=== PATIENT | female | born 1955 | race Caucasian/White ===

== ENCOUNTER 2016-05-16 11:57 | Emergency (ER) | payer MEDICARE ==
[2016-05-16 12:04] VITALS: BP 141/67; PULSE 78; RESP 20; TEMP 98.1
--- NOTE | 2016-05-16 13:20 | ED ---
Recheck HPI - General Chief Complaint: Recheck/Abnormal Lab/Rx Stated Complaint: med refill Time Seen by Provider: 05/16/16 12:58 Source: patient, RN notes reviewed Mode of arrival: ambulatory Limitations: no limitations - History of Present Illness Initial Comments: Patient is a 60-year-old female with chief complaint of needing a medication refill. Patient reports that she had a heart attack approximately one year ago. She is on multiple cardiac medications including Effient, metoprolol, atorvastatin, lisinopril, aspirin, amlodipine, hydrochlorothiazide comments. Lactone. Patient reports that she got in an argument with her primary care providers staff and does not want to see him anymore. Patient reports that she has 2 days of her medications left. She states that she has no specific plan having a new primary care provider. She denies any other associated symptoms including chest pain or shortness of breath or headaches or dizziness. She states that she has been maintained on these medications for approximately a year now. She states that she just needs a refill for the next few weeks until she is able to establish with a new primary care. - Related Data Home Medications Medication Instructions Recorded Confirmed HYDROcodone/APAP 10-325MG [[place] 1 tab PO BID PRN 10/16/15 10/16/15 10-325] Morphine Sulfate [Tomasa] 50 mg PO Q12H 10/16/15 10/16/15 PARoxetine [Paxil] 20 mg PO DAILY 10/16/15 10/16/15 Previous Rx's Medication Instructions Recorded Aspirin 325 mg PO DAILY #30 tab 10/20/15 Atorvastatin [Lipitor] 40 mg PO HS #30 tab 10/20/15 Hydrochlorothiazide 25 mg PO DAILY 90 Days 10/20/15 Lisinopril [Zestril] 20 mg PO BID #60 tab 10/20/15 Metoprolol Tartrate [Lopressor] 25 mg PO BID #60 tab 10/20/15 Nitroglycerin Sl Tabs [Nitrostat] 0.4 mg SUBLINGUAL Q5M PRN #25 tab 10/20/15 Prasugrel [Effient] 10 mg PO DAILY #30 tab 10/20/15 Spironolactone [Aldactone] 25 mg PO DAILY #30 tab 10/20/15 amLODIPine [Norvasc] 10 mg PO DAILY #30 tab 10/20/15 Aspirin 325 mg PO DAILY #30 tab 05/16/16 Atorvastatin [Lipitor] 40 mg PO HS #30 tablet 05/16/16 Hydrochlorothiazide 25 mg PO DAILY #30 tablet 05/16/16 Lisinopril [Zestril] 20 mg PO DAILY #60 tab 05/16/16 Metoprolol Tartrate [Lopressor] 25 mg PO BID #60 tablet 05/16/16 Prasugrel [Effient] 10 mg PO DAILY #30 tablet 05/16/16 Spironolactone [Aldactone] 25 mg PO DAILY #30 tablet 05/16/16 amLODIPine [Norvasc] 10 mg PO DAILY #30 tablet 05/16/16 Allergies Allergy/AdvReac Type Severity Reaction Status Date / Time erythromycin base Allergy Unknown Verified 05/16/16 12:04 NSAIDS (Non-Steroidal Allergy Unknown Verified 05/16/16 12:04 Anti-Inflamma Review of Systems ROS Statement: Those systems with pertinent positive or pertinent negative responses have been documented in the HPI. ROS Other: All systems not noted in ROS Statement are negative. Past Medical History Past Medical History: Hypertension, Myocardial Infarction (TX) Additional Past Medical History / Comment(s): TX with stent to RCA 10/16/15, cyst on spine, Last Myocardial Infarction Date:: 10/16/15 History of Any Multi-Drug Resistant Organisms: Unobtainable Past Surgical History: Heart Catheterization With Stent, Hysterectomy Additional Past Surgical History / Comment(s): Multiple D and C's. Past Anesthesia/Blood Transfusion Reactions: No Reported Reaction Date of Last Stent Placement:: 10/16/15 Past Psychological History: Unable to Obtain Smoking Status: Current every day smoker Past Alcohol Use History: Unable to Obtain Past Drug Use History: Unable to Obtain General Exam - General Exam Comments Initial Comments: Sukhjinder is a well-appearing well-nourished 6-year-old female. She is on appear to be in any acute distress. Limitations: no limitations General appearance: alert, in no apparent distress Head exam: Present: atraumatic, normocephalic, normal inspection Eye exam: Present: normal appearance, PERRL, EOMI. Absent: scleral icterus, conjunctival injection, periorbital swelling ENT exam: Present: normal exam, mucous membranes moist Neck exam: Present: normal inspection. Absent: tenderness, meningismus, lymphadenopathy Respiratory exam: Present: normal lung sounds bilaterally. Absent: respiratory distress, wheezes, rales, rhonchi, stridor Cardiovascular Exam: Present: regular rate, normal rhythm, normal heart sounds. Absent: systolic murmur, diastolic murmur, rubs, gallop, clicks GI/Abdominal exam: Present: soft, normal bowel sounds. Absent: distended, tenderness, guarding, rebound, rigid Extremities exam: Present: normal inspection, full ROM, normal capillary refill. Absent: tenderness, pedal edema, joint swelling, calf tenderness Back exam: Present: normal inspection Neurological exam: Present: alert, oriented X3, CN II-XII intact Psychiatric exam: Present: normal affect, normal mood Skin exam: Present: warm, dry, intact, normal color. Absent: rash Course Vital Signs 05/16/16 12:01 Temperature 98.1 F Pulse Rate 78 Respiratory 20 Rate Blood Pressure 141/67 O2 Sat by Pulse 98 Oximetry Medical Decision Making - Medical Decision Making Patient is a 60-year-old female with chief complaint of needing medication refill. Patient presented she had a heart attack approximately one year ago and since then has been placed on multiple cardiac medications. Patient has multiple medications for high blood pressure that need to be filled. She started currently has 2 days left of her medications. Patient will be given a one-month prescription of the following medication and advised to follow-up with a new primary care provider. Patient will be given a referral for a new primary care physician. Patient will be given a referral for Dr. Lawrence. Return parameters were discussed. I advised patient to follow-up as soon as possible with them to establish care. Disposition Clinical Impression: Encounter for medication refill Disposition: HOME SELF-CARE Condition: Good Instructions: Medicine Refill (ED) Additional Instructions: Patient advised to follow up with primary care provider as soon as possible. Patient would not be able to receive any further refills from the emergency department. Understand that you should Return to the [facility] if any alarming signs or symptoms to occur. Prescriptions: Aspirin 325 mg PO DAILY #30 tab Atorvastatin [Lipitor] 40 mg PO HS #30 tablet Hydrochlorothiazide 25 mg PO DAILY #30 tablet Lisinopril [Zestril] 20 mg PO DAILY #60 tab Metoprolol Tartrate [Lopressor] 25 mg PO BID #60 tablet Prasugrel [Effient] 10 mg PO DAILY #30 tablet Spironolactone [Aldactone] 25 mg PO DAILY #30 tablet amLODIPine [Norvasc] 10 mg PO DAILY #30 tablet Referrals: Kaitlin Lawrence MD [STAFF PHYSICIAN] - 1-2 days Time of Disposition: 13:21
== END 2016-05-16 13:27 | disposition home or self-care (01) ==
LOC: EC 11:57
DX: Z76.0 Encounter for issue of repeat prescription (principal); I10 Essential (primary) hypertension; I25.2 Old myocardial infarction; F17.200 Nicotine dependence, unspecified, uncomplicated; Z95.5 Presence of coronary angioplasty implant and graft; Z88.1 Allergy status to other antibiotic agents; Z88.6 Allergy status to analgesic agent; Z79.82 Long term (current) use of aspirin; Z79.02 Long term (current) use of antithrombotics/antiplatelets; Z79.899 Other long term (current) drug therapy; Z79.891 Long term (current) use of opiate analgesic
CPT/HCPCS: 99281

== ENCOUNTER → 2016-06-27 | Outpatient (CLI) | payer MEDICARE ==
[2016-06-27 08:57] LABS: ALT 26 U/L (9-52); AST 14 U/L (14-36); Alkaline Phosphatase 67 U/L (38-126); Anion Gap 9 mmol/L; Blood Urea Nitrogen 24 mg/dL (7-17); Calcium 8.5 mg/dL (8.4-10.2); Carbon Dioxide 27 mmol/L (22-30); Chloride 109 mmol/L (98-107); Cholesterol 114 mg/dL (<200); Glucose 105 mg/dL (74-99); HDL Cholesterol 33 mg/dL (40-60); Non-African American GFR(MDRD) >60 (>60 ml/min/1.73 sqM); Potassium 4.1 mmol/L (3.5-5.1); Sodium 145 mmol/L (137-145); Total Bilirubin 0.4 mg/dL (0.2-1.3); Total Protein 6.4 g/dL (6.3-8.2); Triglycerides 181 mg/dL (<150)
== END | disposition home or self-care (01) ==
LOC: LABWHC1 07:39
PROVIDERS: ATTEND Internal Medicine Interventional Cardiology
DX: E78.2 Mixed hyperlipidemia (principal)
CPT/HCPCS: 36415; 80053; 80061

== ENCOUNTER → 2016-07-09 | Outpatient (CLI) | payer MEDICARE ==
[2016-07-09 09:28] LABS: CH 29.9; CHCM 30.2; HCT 43.2 % (34.0-46.0); HGB 13.1 gm/dL (11.4-16.0); Hypochromasia Moderate; MCH 30.2 pg (25.0-35.0); MCHC 30.3 g/dL (31.0-37.0); MCV 99.6 fL (80.0-100.0); Macrocytosis Slight; Mean Platelet Volume 7.4; RBC 4.34 m/uL (3.80-5.40); RDW 13.9 % (11.5-15.5)
[2016-07-09 09:41] LABS: Anion Gap 10 mmol/L; Carbon Dioxide 25 mmol/L (22-30); Chloride 105 mmol/L (98-107); Non-African American GFR(MDRD) 59 (>60 ml/min/1.73 sqM); Sodium 140 mmol/L (137-145)
[2016-07-09 09:56] LABS: Potassium 5.2 mmol/L (3.5-5.1)
[2016-07-09 09:57] LABS: Blood Urea Nitrogen 39 mg/dL (7-17)
== END | disposition home or self-care (01) ==
LOC: LABPAT 08:53
PROVIDERS: ATTEND Internal Medicine Interventional Cardiology
DX: Z01.812 Encounter for preprocedural laboratory examination (principal); I73.9 Peripheral vascular disease, unspecified
CPT/HCPCS: 80051; 82565; 84520; 85027

== ENCOUNTER 2016-07-13 09:02 | Day surgery (SDC) | payer MEDICARE ==
[2016-07-12 08:58] VITALS: BMI 27.4
[~2016-07-13 09:02] MED LIST: ALPRAZolam 0.25 MG TAB PO PRN; ASPIRIN 325 MG TAB PO STA; SODIUM CHLORIDE 0.9% 1,000 ML in EMPTY BAG 1 BAG IV ONE
[2016-07-13 09:33] VITALS: TEMP 98.4
[2016-07-13] MEDS ORDERED: SODIUM CHLORIDE 0.9% 1,000 ML IV ONE (10:28)
[2016-07-13] MEDS ORDERED: MIDAZOLAM 2 MG/2 ML VIAL IV ONE (10:45)
[2016-07-13] MEDS ORDERED: LIDOCAINE 2% INJ 20 MG/ML SQ ONE (10:47)
[2016-07-13] MEDS: VERAPAMIL SYRINGE (5 MG/10 ML) INTRAARTER ONE ×2 (10:56→11:11)
[2016-07-13] MEDS ORDERED: HEPARIN SODIUM,PORCINE 100 UNIT/ML 5 ML VIAL IV ONE (10:58)
[2016-07-13] MEDS ORDERED: HEPARIN SODIUM 1,000 UNIT/ML VIAL IV ONE (10:58)
[2016-07-13] MEDS ORDERED: IODIXANOL 320 MG/ML 100 ML INTRAARTER ONE (11:11)
[2016-07-13] MEDS ORDERED: SODIUM CHLORIDE 0.9% 1,000 ML IV SCH (11:15)
--- NOTE | 2016-07-13 12:38 | PTCA ---
DATE OF SERVICE: 07/13/2016 PERFORMING PHYSICIAN: Alli Simeon MD, Director Of Sleep. PROCEDURE PERFORMED: 1. An abdominal aortogram. 2. Bilateral lower extremity runoff. INDICATION OF THE STUDY: This is a pleasant 60-year-old female patient who sees Dr. Sweet as an outpatient who was experiencing bilateral lower extremity discomfort consistent with claudication. She underwent a duplex study in the office and that showed bilateral SFA disease where she was brought today to undergo a peripheral angiogram. APPROACH: Right radial artery. COMPLICATIONS: None. LEVEL OF SEDATION: Moderate with a sedation length of 30 minutes. PROCEDURE DESCRIPTION: After obtaining informed consent, the patient was brought to the Cardiac Sleeve Tailor. Right radial artery was cannulated using micropuncture technique under ultrasound guidance. The micropuncture wire passed easily, then I placed a 5 Cymro sheath in the right radial artery. Subsequently, I gave the patient 2 mg of verapamil IA and 3000 units of heparin IV. Subsequently, I advance a 5 Cymro pigtail catheter over an 0.035 Glidewire to the descending thoracic aorta all the way to the abdomen aorta. After that, an abdominal aortogram and bilateral lower extremity runoff using 5 Cymro pigtail catheter which was initially placed at the level of the renal arteries, then it was advanced above the bifurcation of the aorta to right and left common iliac arteries. The procedure was completed without any complication. SELECTIVE PERIPHERAL ANGIOGRAM: 1. The abdominal aorta appeared to have mild disease only. It is calcified, though. 2. COMMON ILIAC ARTERIES: The right and left common iliac arteries appeared to have mild disease only. 3. INTERNAL ILIAC ARTERIES: The right and left internal iliac arteries appeared to have mild disease only. 4. EXTERNAL ILIAC ARTERIES: The right and left external iliac arteries appeared to have mild disease only. 5. COMMON FEMORAL ARTERIES: The right and left common femoral arteries appeared to have mild disease only. 6. PROFUNDA: The right and left profunda are patent. 7. SFA: The right SFA appeared to be occluded with the occlusion extending from the ostium and reconstitute down by the mid SFA. The left SFA has short area of occlusion in the midportion. 8. POPLITEAL: The right and left popliteals appear to be angiographically normal.
--- NOTE | 2016-07-13 12:43 | PTCA ---
DATE OF SERVICE: 07/13/2016 PROCEDURE PERFORMED: 1. An abdominal aortogram. 2. Bilateral lower extremity runoff. PERFORMING PHYSICIAN: Alli Simeon MD, Relations Mgr. INDICATION: This is a pleasant 60-year-old female patient who sees Dr. Sweet in the office as an outpatient, who was experiencing bilateral lower extremity discomfort consistent with intermittent claudication. She did undergo duplex study in the office which showed severe bilateral SFA disease. She was brought today to undergo a peripheral angiogram. APPROACH: Right radial artery. COMPLICATIONS: None. LEVEL OF SEDATION: Moderate with a sedation length of 1/2 hour. PROCEDURE DESCRIPTION: After obtaining an informed consent, the patient was brought to the Cardiac Primary Care Provider. The right radial artery was cannulated using micropuncture technique. The micropuncture wire passed easily. Then I placed a 5 Austrian sheath in the right radial artery. Subsequently, I gave the patient 2 mg of verapamil IA and 3000 units of heparin IV. I did after that an abdominal aortogram and bilateral lower extremity runoff using 5 Austrian pigtail catheter which was initially placed at the level of the renal arteries, then it was advanced into above the bifurcation of the aorta to right and left common iliac arteries. The procedure was completed without any complication. SELECTIVE PERIPHERAL ANGIOGRAM: 1. Aorta appeared to be calcified with mild disease only. 2. COMMON ILIAC ARTERIES: The right and left common iliac arteries as well as right and left external iliac arteries and right and left internal iliac arteries appeared to be angiographically normal. 3. FEMORAL ARTERY: The right and left femoral arteries appeared to be angiographically normal. 4. PROFUNDA: The right and left profunda are patent. 5. THE SFA: The right and left SFA are occluded. The right SFA is occluded on a long segment and the left SFA is occluded on a short segment. 6. POPLITEAL: The right and left popliteal appear to be angiographically normal. 7. BELOW THE KNEE: There are 3-vessel runoff below the knee bilaterally. 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 POSTPROCEDURE MANAGEMENT: The patient will be scheduled to undergo a PHYSICAL THERAPY INSTRUCTOR of the right and left SFA.
--- NOTE | 2016-07-13 13:01 | LTR ---
July 13, 2016 RE: TezRachelmeron Lu Sebastian Dear Dr. Lawrence; Ms. Lu Bah underwent a peripheral angiogram and that showed occluded bilateral femoral arteries. The patient will be scheduled to undergo a MOLD BUILDER of the right and left SFA on 2 separate sessions. I want to thank you for allowing me to participate in her care and please do not hesitate to call if you have any questions or concerns. Sincerely, CARLOS DUFFY MD
--- NOTE | 2016-07-13 15:53 | IR ---
Fluoroscopy HISTORY: Pain 2.7 minutes fluoroscopy time supplied to the referring clinician. 132 intraoperative C-arm images do cument the procedure. See dictated report from cardiology.
[2016-07-13 16:07] VITALS: RESP 16
[2016-07-13 17:43] VITALS: BP 104/62; PULSE 63
--- NOTE | 2016-07-24 07:22 | CDI ---
According to the Official Guidelines for Coding and Reporting, in the outpatient setting diagnosis documented as "consistent with" fits the definition of a probable or suspected condition. Further clarification is required when a suspected condition is reported. Per the H&P, the patient is complaining of bilateral lower extremities discomfort consistent with intermittent claudication. The patient has known PAD. Please clarify for proper reporting purposes. PAD with intermittent claudication PAD without intermittent claudication unknown Other (please specify) Please document your findings in an addendum to the procedure note. If you have any questions about this query, you may contact [employer] Operator, Kaila Encinas at between 8am and 6pm Saturday-Saturday. Thank you for your time. BRAYAN Hong PAD with intermittent claudication SILVANA
== END 2016-07-13 17:43 | disposition home or self-care (01) ==
LOC: CATHCVL 09:02
PROVIDERS: ATTEND Internal Medicine Interventional Cardiology
DX: I70.213 Atherosclerosis of native arteries of extremities with intermittent claudication, bilateral legs (principal); I70.0 Atherosclerosis of aorta; E78.2 Mixed hyperlipidemia; I25.5 Ischemic cardiomyopathy; E78.00 Pure hypercholesterolemia, unspecified; M19.90 Unspecified osteoarthritis, unspecified site; I25.10 Atherosclerotic heart disease of native coronary artery without angina pectoris; I10 Essential (primary) hypertension; F17.211 Nicotine dependence, cigarettes, in remission; Z88.1 Allergy status to other antibiotic agents; Z79.899 Other long term (current) drug therapy; Z79.82 Long term (current) use of aspirin; Z88.8 Allergy status to other drugs, medicaments and biological substances; Z95.5 Presence of coronary angioplasty implant and graft
CPT/HCPCS: 99152; 99153; 36200; 75625; 75716; C1769; C1894; J2001; J2250; Q9967; J1644

== ENCOUNTER 2016-07-25 11:28 | Day surgery (SDC) | payer MEDICARE ==
[2016-07-24 10:01] VITALS: BMI 25.0
[2016-07-25] MEDS ORDERED: SODIUM CHLORIDE 0.9% 1,000 ML IV ONE (11:50)
[2016-07-25 12:05] LABS: CH 30.4; CHCM 32.1; HCT 42.4 % (34.0-46.0); HGB 13.9 gm/dL (11.4-16.0); MCH 31.2 pg (25.0-35.0); MCHC 32.8 g/dL (31.0-37.0); MCV 95.2 fL (80.0-100.0); Mean Platelet Volume 7.1; RBC 4.45 m/uL (3.80-5.40); RDW 13.8 % (11.5-15.5); WBC 10.9 k/uL (3.8-10.6)
[2016-07-25 12:13] LABS: ALT 25 U/L (9-52); AST 18 U/L (14-36); Alkaline Phosphatase 64 U/L (38-126); Anion Gap 10 mmol/L; Blood Urea Nitrogen 30 mg/dL (7-17); Calcium 9.4 mg/dL (8.4-10.2); Carbon Dioxide 25 mmol/L (22-30); Chloride 106 mmol/L (98-107); Glucose 86 mg/dL (74-99); Non-African American GFR(MDRD) >60 (>60 ml/min/1.73 sqM); Potassium 4.4 mmol/L (3.5-5.1); Sodium 141 mmol/L (137-145); Total Bilirubin 0.8 mg/dL (0.2-1.3); Total Protein 7.5 g/dL (6.3-8.2)
[2016-07-25] MEDS ORDERED: MIDAZOLAM 2 MG/2 ML VIAL IVP ONE (15:03)
[2016-07-25] MEDS ORDERED: LIDOCAINE 2% INJ 20 MG/ML SQ ONE (15:07)
[2016-07-25] MEDS ORDERED: HEPARIN SODIUM 1,000 UNIT/ML VIAL IV ONE (15:09)
[2016-07-25] MEDS: NITROGLYCERIN 1000MCG/10ML SYRINGE INTRAARTER ONE ×2 (15:46→16:08)
[2016-07-25] MEDS: niCARdipine Syringe (1,000 mcg/10 mL) INTRACORON ONE ×2 (15:46→16:08)
[2016-07-25] MEDS ORDERED: HYDROmorphone 2 MG/ML 1 ML SYRINGE IVP ONE (16:06)
[2016-07-25] MEDS ORDERED: IODIXANOL 320 MG/ML 100 ML INTRAARTER ONE (16:18)
[2016-07-25] MEDS ORDERED: HYDROcodone/APAP 10-325MG 1 EACH TAB PO PRN (16:26)
[2016-07-25] MEDS ORDERED: NITROGLYCERIN SL TABS 0.4 MG TAB SUBLINGUAL PRN (16:26)
[2016-07-25] MEDS ORDERED: SODIUM CHLORIDE 0.9% 1,000 ML IV SCH (16:30)
[2016-07-25] MEDS: MORPHINE SULFATE ER 15 MG TABLET PO SCH (17:32)
[2016-07-25 19:56] VITALS: RESP 18
--- NOTE | 2016-07-25 20:37 | PCN ---
DATE OF PROCEDURE: 07/25/2016 PERFORMING PHYSICIAN: Alli Simeon M.D., plastering supervisor. PROCEDURES PERFORMED: 1. Selective left [id number] angiogram. 2. Selective left superficial femoral artery angiogram. 3. Successful recanalization of totally occluded left SFA. 4. Atherectomy of the left SFA using the TurboHawk device. 5. Successful balloon angioplasty of the distal left SFA using 5.0 x 80 In.Pact drug-coated balloon, with good angiographic results. 6. Successful stenting of the mid left SFA using a 6.0 x 60 mm self-expandable stent, with good angiographic results. 7. Selective right common femoral artery angiogram. INDICATION: This is a pleasant 60-year-old female patient who sees Dr. Sweet and Dr. Huang as an outpatient. She was experiencing bilateral lower extremity discomfort consistent with intermittent claudication. Initially she underwent an arterial duplex study which came in to be abnormal. Subsequently she underwent a peripheral angiogram which showed occluded bilateral SFA. She was admitted today to undergo a FABRICATION DEPARTMENT SUPERVISOR of the left SFA. APPROACH: Right common femoral artery. COMPLICATIONS: None. SEDATION: Conscious sedation was performed with a sedation length of about 2 hours. PROCEDURE DESCRIPTION: After obtaining informed consent, the patient was brought to the cardiac senior cytogenetics laboratory director. The right groin was prepped and draped in the usual sterile fashion. Local analgesia was achieved by injecting 2% Xylocaine subcutaneously into the right groin. The right common femoral artery was cannulated using micropuncture technique. The micropuncture wire passed easily. Then I placed a 6 Montserratian sheath in the right common femoral artery. At that point anticoagulation was initiated using heparin. Subsequently I did select the left SFA using an 0.035 Advantage wire with a 5 Montserratian RIM catheter. After that I exchanged my 11 cm 6 Montserratian sheath for a 55 cm 6 Montserratian sheath over the Advantage wire, and the tip of the sheath was positioned in the left common femoral artery. Subsequently I crossed the chronic total occlusion of the left SFA using an 0.014 Astato wire with the back-up support of an 0.014 QuickCross catheter. I proved that I was in the true lumen by injecting through the QuickCross. Subsequently I exchanged my 0.014 Astato wire for an 0.014 Ironman, preparing for directional atherectomy using the TurboHawk device. I performed multiple runs of directional atherectomy and I was able to extract a significant amount of plaque from the left superficial femoral artery. Subsequently I did balloon angioplasty initially using a 4.0 balloon which was inflated under its nominal pressure. After that I advanced a 5.0 x 80 mm In.Pact drug-coated balloon to the distal left SFA, where the balloon was inflated under its nominal pressure for 3 minutes. The following angiogram showed good angiographic results in the ballooned area, but proximal to that area there was what seemed to be dissection that was concerning. At that point I decided to cover that with a stent. So I deployed a 6.0 x 60 mm self-expandable stent, which was EverFlex, where the stent was positioned under fluoroscopy guidance. Then it was deployed. After that I did post-dilatation using a 5 mm balloon. The following angiogram showed good angiographic results without perforation and without dissection, with good flow. After that I did selective left [id number] angiogram. After that I exchanged my 55 cm sheath for an 11 cm sheath using the Advantage wire. Then I did selective right common femoral artery angiogram. The procedure was completed without any complication. POST-PROCEDURE MANAGEMENT: 1. Dual antiplatelet therapy. 2. Risk factor modification. 3. FABRICATION DEPARTMENT SUPERVISOR of the right SFA down the line.
[2016-07-25] MEDS ORDERED: ATORVASTATIN 40 MG TAB PO SCH (21:00)
[2016-07-25] MEDS ORDERED: PARoxetine 20 MG TAB PO SCH (21:00)
[2016-07-25] MEDS: VARENICLINE 1 MG TAB PO SCH (22:20)
[2016-07-25] MEDS: METOPROLOL TARTRATE 25 MG TAB PO SCH (22:20)
--- NOTE | 2016-07-25 23:13 | LTR ---
July 25, 2016 RE: TezRachelmeron Lu Sebastian Dear Tyler Ms. Lu Bah underwent successful angioplasty of the left superficial femoral artery with good angiographic results and without any complication. Thank you for allowing me to participate in her care. Sincerely, CARLOS DUFFY MD
[2016-07-26 06:40] LABS: Anion Gap 10 mmol/L; Blood Urea Nitrogen 19 mg/dL (7-17); Carbon Dioxide 24 mmol/L (22-30); Chloride 107 mmol/L (98-107); Glucose 96 mg/dL (74-99); Non-African American GFR(MDRD) >60 (>60 ml/min/1.73 sqM); Potassium 4.6 mmol/L (3.5-5.1); Sodium 141 mmol/L (137-145)
[2016-07-26 06:50] LABS: Aty Lym Flag Marked; Basophils % (A) 0 %; CH 30.2; CHCM 31.3; Eosinophils # (A) 0.2 k/uL (0-0.7); Eosinophils % (A) 2 %; HCT 41.7 % (34.0-46.0); HDW 2.15; HGB 13.2 gm/dL (11.4-16.0); Luc # (Auto) 1.24; Luc % (Auto) 11; Lymphocytes # (A) 2.3 k/uL (1.0-4.8); Lymphocytes % (A) 19 %; MCH 30.7 pg (25.0-35.0); MCHC 31.7 g/dL (31.0-37.0); Mean Platelet Volume 7.2; Monocytes # (A) 0.8 k/uL (0-1.0); Monocytes % (A) 7 %; Neutrophils # (A) 7.1 k/uL (1.3-7.7); Neutrophils % (A) 61 %; RDW 13.7 % (11.5-15.5); WBC 11.7 k/uL (3.8-10.6); WBC (Perox) 12.53
[2016-07-26] MEDS: MORPHINE SULFATE ER 15 MG TABLET PO SCH (08:24)
[2016-07-26] MEDS: VARENICLINE 1 MG TAB PO SCH (08:24)
[2016-07-26] MEDS: METOPROLOL TARTRATE 25 MG TAB PO SCH (08:25)
[2016-07-26 08:36] VITALS: BP 124/59; PULSE 65; TEMP 98.1
[2016-07-26] MEDS ORDERED: LISINOPRIL 20 MG TAB PO SCH (09:00)
[2016-07-26] MEDS ORDERED: ASPIRIN 325 MG TAB PO SCH (09:00)
[2016-07-26] MEDS ORDERED: PRASUGREL 10 MG TAB PO SCH (09:00)
[2016-07-26] MEDS ORDERED: amLODIPine 10 MG TAB PO SCH (09:00)
[2016-07-26] MEDS ORDERED: HYDROCHLOROTHIAZIDE 25 MG TAB PO SCH (09:00)
--- NOTE | 2016-07-26 10:17 | IR ---
EXAMINATION TYPE: IR stent intravas non coronary DATE OF EXAM: 07/25/2016 4:47 PM COMPARISON: NONE HISTORY: Peripheral vascular occlusive disease. Fluoroscopy was provided to the referring clinician. See dictated report from cardiology.
[2016-07-26 11:35] LABS: RBC Morphology Normal
--- NOTE | 2016-07-28 08:48 | DS ---
DATE OF ADMISSION: 07/25/2016 DATE OF DISCHARGE: 07/26/2016 BRIEF HISTORY: This is a pleasant 60-year-old female patient who sees Dr. Sweet as an outpatient, who was experiencing bilateral lower extremity discomfort and she underwent a peripheral angiogram which showed occluded bilateral SFA. She was admitted to the hospital yesterday and underwent successful crossing chronic total occlusion of the left SFA with a good angiographic result and without any complication. The procedure was performed from the right groin, which is soft and nontender and without any bruises. The patient is going to be discharged home and I will follow up with the patient next week in the office.
--- NOTE | 2016-08-02 06:08 | CDI ---
Dear Dr. Simeon, According to the Official Guidelines for Coding and Reporting, in the Outpatient setting diagnoses documented as "Consistent with" fit in with the definition of a "probable or suspected" condition. Further clarification is required when a suspected condition is reported. The H&P states that the patient is complaining of bilateral lower extremity discomford consistent with intermittent claudicaiton. The patient has known PAD. For proper report purposes, please clarify PAD With intermittent claudication PAD without intermittent claudication Unknown Other Please document this clarification as an addendum do the procedure note. If you have any questions regarding this query, you may condact Rimma Encinas , Correctional Supply Supervisor at Saturday thru Saturday from 8:00 am to 6:00 pm. Thank you for your time Dalila Graves, [facility] Outpatient Salon Professional Haseeb [email or web address] PAD with intermittent claudication MTDD
== END 2016-07-26 09:50 | disposition home or self-care (01) ==
LOC: CATHCVL 11:28 → 6SEL 16:17 → CATHCVL 07-26 09:50
PROVIDERS: ATTEND Internal Medicine Interventional Cardiology
DX: I70.203 Unspecified atherosclerosis of native arteries of extremities, bilateral legs (principal); Z87.891 Personal history of nicotine dependence; Z95.5 Presence of coronary angioplasty implant and graft; I10 Essential (primary) hypertension; E78.5 Hyperlipidemia, unspecified; Z79.82 Long term (current) use of aspirin; Z79.891 Long term (current) use of opiate analgesic; Z79.899 Other long term (current) drug therapy; Z88.1 Allergy status to other antibiotic agents; Z88.8 Allergy status to other drugs, medicaments and biological substances
CPT/HCPCS: 99152; 99153 ×4; 37227; 80053; 80048; 85025; 85027; C1769 ×5; C1894 ×2; C1725 ×3; C1887; C1876; C1714; C2623; C1760; J2001; J2250; J1170; Q9967; J1644

== ENCOUNTER → 2016-09-06 | Outpatient (CLI) | payer MEDICARE ==
[2016-09-06 10:50] LABS: CH 29.8; HCT 38.1 % (34.0-46.0); HDW 2.24; Hypochromasia Slight; MCH 30.3 pg (25.0-35.0); MCHC 31.4 g/dL (31.0-37.0); MCV 96.6 fL (80.0-100.0); Mean Platelet Volume 7.2; RBC 3.95 m/uL (3.80-5.40); RDW 13.9 % (11.5-15.5); WBC 11.9 k/uL (3.8-10.6)
[2016-09-06 10:58] LABS: Anion Gap 13 mmol/L; Blood Urea Nitrogen 32 mg/dL (7-17); Carbon Dioxide 23 mmol/L (22-30); Chloride 106 mmol/L (98-107); Non-African American GFR(MDRD) 51 (>60 ml/min/1.73 sqM); Potassium 4.2 mmol/L (3.5-5.1); Sodium 142 mmol/L (137-145)
== END | disposition home or self-care (01) ==
LOC: LABPAT 09:59
PROVIDERS: ATTEND Internal Medicine Interventional Cardiology
DX: Z01.812 Encounter for preprocedural laboratory examination (principal); I73.9 Peripheral vascular disease, unspecified
CPT/HCPCS: 36415; 80051; 82565; 84520; 85027

== ENCOUNTER 2016-10-03 10:07 | Day surgery (SDC) | payer MEDICARE ==
[2016-09-14 11:48] VITALS: BMI 25.4
[~2016-10-03 10:07] MED LIST changes: -ALPRAZolam 0.25 MG TAB PO PRN; -ASPIRIN 325 MG TAB PO STA
[2016-10-03 10:32] LABS: Aty Lym Flag Marked; CHCM 32.2; HCT 35.8 % (34.0-46.0); HDW 2.28; HGB 12.2 gm/dL (11.4-16.0); MCH 31.9 pg (25.0-35.0); MCHC 34.1 g/dL (31.0-37.0); MCV 93.5 fL (80.0-100.0); Mean Platelet Volume 7.5; RBC 3.83 m/uL (3.80-5.40); RDW 13.8 % (11.5-15.5); WBC 11.7 k/uL (3.8-10.6); WBC (Perox) 10.92
[2016-10-03 10:58] LABS: Anion Gap 12 mmol/L; Blood Urea Nitrogen 34 mg/dL (7-17); Calcium 9.1 mg/dL (8.4-10.2); Carbon Dioxide 25 mmol/L (22-30); Chloride 106 mmol/L (98-107); Glucose 114 mg/dL (74-99); Non-African American GFR(MDRD) 59 (>60 ml/min/1.73 sqM); Potassium 4.3 mmol/L (3.5-5.1); Sodium 143 mmol/L (137-145)
[2016-10-03] MEDS ORDERED: MIDAZOLAM 2 MG/2 ML VIAL IV ONE (11:10)
[2016-10-03 11:13] LABS: Add Differential Manual Differential
[2016-10-03 11:14] LABS: Nucleated Red Blood Cells 0 /100 WBC (0-0)
[2016-10-03 11:16] LABS: Manual Review Performed; Myelocytes % 0.5 %; Total Cells Counted 200
[2016-10-03] MEDS ORDERED: LIDOCAINE 2% INJ 20 MG/ML SQ ONE (11:17)
[2016-10-03] MEDS: HEPARIN SODIUM 1,000 UNIT/ML VIAL IV ONE ×2 (11:22→12:09)
[2016-10-03] MEDS ORDERED: SODIUM CHLORIDE 0.9% 1,000 ML IV ONE (11:22)
[2016-10-03] MEDS ORDERED: HYDROmorphone 2 MG/ML 1 ML SYRINGE IVP ONE (12:17)
[2016-10-03] MEDS: NITROGLYCERIN 1000MCG/10ML SYRINGE INTRAARTER ONE ×2 (12:29→12:46)
[2016-10-03] MEDS ORDERED: niCARdipine Syringe (1,000 mcg/10 mL) INTRAARTER ONE (12:46)
[2016-10-03] MEDS ORDERED: NITROGLYCERIN SL TABS 0.4 MG TAB SUBLINGUAL PRN (13:04)
[2016-10-03] MEDS ORDERED: VARENICLINE 1 MG TAB PO PRN (13:04)
[2016-10-03] MEDS ORDERED: HYDROcodone/APAP 10-325MG 1 EACH TAB PO PRN (13:04)
[2016-10-03] MEDS ORDERED: SODIUM CHLORIDE 0.9% 1,000 ML IV SCH (13:15)
[2016-10-03] MEDS ORDERED: IODIXANOL 320 MG/ML 100 ML INTRAARTER ONE (13:16)
--- NOTE | 2016-10-03 13:18 | P.PCN ---
Date of Procedure: 10/03/16 Preoperative Diagnosis: Postoperative Diagnosis: Procedure(s) Performed: Implants: Indications for Procedure: Operative Findings: PERCUTANEOUS PERIPHERAL INTERVENTION Performing physician: Alli Simeon M.D., breakfast supervisor Procedure performed: - Selective right below the knee angiogram - Selective right SFA angiogram - Successful crossing CLIENT EXPERIENCE CONSULTANT of the right SFA - An atherectomy of the right SFA using the CSI orbital atherectomy - Successful balloon angioplasty of the mid right SFA - Successful stenting of the proximal and distal right SFA using the Silver PTX drug-coated stent - Selective left common femoral artery angiogram Indication: This is a pleasant 61-year-old female patient who sees Dr. Sweet as an outpatient with a known history of severe PAD and known occluded bilateral SFA. She was quite symptomatic in terms of claudication. She underwent few weeks ago successful balloon angioplasty of the left SFA and she was brought today to undergo a ORACLE HYPERION CONSULTANT of the right SFA. Approach: Left common femoral artery Complication: None Level of sedation: Moderate sedation length of 99 minutes Procedure description: After obtaining an informed consent the patient was brought to the cardiac home performance laborer. The left common femoral artery was cannulated using micropuncture technique under ultrasound guidance, the micropuncture wire passed easily then I placed an 11 cm 6-Monegasque sheath in the left common femoral artery. At that point anticoagulation was initiated and the patient was given a total of 8000 use of heparin at the beginning of the procedure and subsequently 3000 use of heparin during the procedure with an ACT monitoring during the procedure. Subsequently I did selective the right profunda using a 5-Monegasque rim catheter with 035 advantage wire. After that I did exchange my 11 cm 6-Monegasque sheath into 70 cm 6-Monegasque sheath using the advantage wire. The tip of the long sheath was positioned in the right common femoral artery. I was able to cross the chronic total occlusion of the right SFA using an 018 Gold the Glidewire as well as an 018 a statin to wire with a backup support of 018 CXR I catheter. I did improve that I was in the true lumen by injecting through the catheter in the right popliteal. After that I did exchange my 018 Gold-tipped Glidewire into an 014 fiber wire preparing for orbital atherectomy. After that I did 3 runs off orbital atherectomy using the CSI device. After that I did exchange my 014 fiber wire into an 018V 18 wire. Subsequently I did balloon angioplasty using 5.0 x 200 mm balloon. The following angiogram showed that the mid right SFA has good angiographic results but the proximal and distal right SFA has dissection and it. I decided to cover that with stents. For the distal right SFA I deployed a 6.0 x 14 mm silver PTX drug-coated stent where the stent was positioned under fluoroscopy guidance and deployed after that. For the proximal right SFA I deployed a 6.0 x 80 mm another silver PTX drug- coated stent where the stent was positioned under fluoroscopy guidance and deployed after that. I did postdilated both stents using 5 mm balloon. The following angiogram showed good angiographic results with a good flow in the right SFA and with a good flow below the knee on the right side. Subsequently I did exchange my long 70 cm sheath into short 11 cm sheath over the advantage wire then I did selective left common femoral artery angiogram. The procedure was completed without any combination. Post procedure management: #1 dual antiplatelet therapy #2 risk factors modifications #3 follow-up with the patient Description of Procedure:
--- NOTE | 2016-10-03 13:58 | IR ---
EXAMINATION TYPE: IR stent intravas non coronary DATE OF EXAM: 10/03/2016 COMPARISON: NONE HISTORY: Peripheral vascular occlusive disease. Fluoroscopy was provided to the referring clinician. See dictated report from cardiology.
[2016-10-03] MEDS ORDERED: ATROPINE SULFATE 0.1 MG/ML 10ML SYRINGE ONE (15:01)
[2016-10-03] MEDS: MORPHINE SULFATE ER 15 MG TABLET PO SCH (20:11)
[2016-10-03] MEDS: MORPHINE SULFATE ER 30 MG TABLET PO SCH (20:12)
[2016-10-03] MEDS: METOPROLOL TARTRATE 25 MG TAB PO SCH (20:13)
[2016-10-03] MEDS: LISINOPRIL 20 MG TAB PO SCH (20:13)
[2016-10-03] MEDS ORDERED: PARoxetine 20 MG TAB PO SCH (21:00)
[2016-10-03] MEDS ORDERED: ATORVASTATIN 40 MG TAB PO SCH (21:00)
[2016-10-04 03:51] VITALS: RESP 16
[2016-10-04 05:03] VITALS: PULSE 77; TEMP 97.2
[2016-10-04 06:35] LABS: Aty Lym Flag Marked; CH 29.8; CHCM 31.4; HCT 35.6 % (34.0-46.0); HDW 2.21; HGB 11.6 gm/dL (11.4-16.0); MCH 31.1 pg (25.0-35.0); MCHC 32.7 g/dL (31.0-37.0); RBC 3.75 m/uL (3.80-5.40); RDW 13.8 % (11.5-15.5); WBC 11.3 k/uL (3.8-10.6); WBC (Perox) 10.94
[2016-10-04 06:49] LABS: Anion Gap 9 mmol/L; Blood Urea Nitrogen 22 mg/dL (7-17); Calcium 9.1 mg/dL (8.4-10.2); Carbon Dioxide 25 mmol/L (22-30); Chloride 106 mmol/L (98-107); Glucose 175 mg/dL (74-99); Non-African American GFR(MDRD) >60 (>60 ml/min/1.73 sqM); Potassium 4.6 mmol/L (3.5-5.1); Sodium 140 mmol/L (137-145)
[2016-10-04 07:03] LABS: Add Differential Manual Differential
[2016-10-04 07:06] LABS: Manual Review Performed; Nucleated Red Blood Cells 0 /100 WBC (0-0); Total Cells Counted 100
--- NOTE | 2016-10-04 08:33 | P.DS ---
Providers Date of admission: 10/03/2016 Attending physician: Alli Simeon Primary care physician: Kaitlin Lawrence MD Pertinent Studies: This is a pleasant 61-year-old female patient who was admitted to the hospital yesterday and underwent successful balloon angioplasty of the right superficial femoral artery with a good angiographic results and without any complication. The procedure was performed from the left common femoral artery. The left groin is soft and nontender and without any bruises. I was able to feel faint pulse in the right dorsalis pedis. The patient can be discharged home and I will follow-up with the patient as an outpatient in the office next week. Plan - Discharge Summary New Discharge Prescriptions: Continue PARoxetine [Paxil] 20 mg PO HS Morphine Sulfate [Tomasa] 50 mg PO Q12H HYDROcodone/APAP 10-325MG [[place] 10-325] 1 tab PO BID PRN PRN Reason: Pain Nitroglycerin Sl Tabs [Nitrostat] 0.4 mg SUBLINGUAL Q5M PRN #25 tab PRN Reason: Chest Pain Prasugrel [Effient] 10 mg PO DAILY #30 tab Spironolactone [Aldactone] 25 mg PO DAILY #30 tab amLODIPine [Norvasc] 10 mg PO DAILY #30 tab Metoprolol Tartrate [Lopressor] 25 mg PO BID #60 tablet Atorvastatin [Lipitor] 40 mg PO HS #30 tablet Aspirin 325 mg PO DAILY #30 tab Hydrochlorothiazide 25 mg PO DAILY #30 tablet Varenicline [Chantix] 1 mg PO BID PRN PRN Reason: Nicotine Cravings Lisinopril [Zestril] 20 mg PO BID Discharge Medication List HYDROcodone/APAP 10-325MG [[place] 10-325] 1 tab PO BID PRN 10/16/15 [History] Morphine Sulfate [Tomasa] 50 mg PO Q12H 10/16/15 [History] PARoxetine [Paxil] 20 mg PO HS 10/16/15 [History] Nitroglycerin Sl Tabs [Nitrostat] 0.4 mg SUBLINGUAL Q5M PRN #25 tab 10/20/15 [Rx ] Prasugrel [Effient] 10 mg PO DAILY #30 tab 10/20/15 [Rx] Spironolactone [Aldactone] 25 mg PO DAILY #30 tab 10/20/15 [Rx] amLODIPine [Norvasc] 10 mg PO DAILY #30 tab 10/20/15 [Rx] Aspirin 325 mg PO DAILY #30 tab 05/16/16 [Rx] Atorvastatin [Lipitor] 40 mg PO HS #30 tablet 05/16/16 [Rx] Hydrochlorothiazide 25 mg PO DAILY #30 tablet 05/16/16 [Rx] Metoprolol Tartrate [Lopressor] 25 mg PO BID #60 tablet 05/16/16 [Rx] Varenicline [Chantix] 1 mg PO BID PRN 07/24/16 [History] Lisinopril [Zestril] 20 mg PO BID 09/14/16 [History] Follow up Appointment(s)/Referral(s): Alli Simeon MD [STAFF PHYSICIAN] - 10/11/16 4:15 pm Patient Instructions/Handouts: *[facility] - After Heart Catheterization - [facility] Instructions, Left Heart Catheterization (DC)
[2016-10-04] MEDS ORDERED: ASPIRIN 325 MG TAB PO SCH (09:00)
[2016-10-04] MEDS ORDERED: HYDROCHLOROTHIAZIDE 25 MG TAB PO SCH (09:00)
[2016-10-04] MEDS ORDERED: amLODIPine 10 MG TAB PO SCH (09:00)
[2016-10-04] MEDS ORDERED: PRASUGREL 10 MG TAB PO SCH (09:00)
[2016-10-04] MEDS ORDERED: SPIRONOLACTONE 25 MG TAB PO SCH (09:00)
[2016-10-04 09:19] VITALS: BP 107/68
[2016-10-04] MEDS: METOPROLOL TARTRATE 25 MG TAB PO SCH (09:23)
[2016-10-04] MEDS: LISINOPRIL 20 MG TAB PO SCH (09:23)
[2016-10-04] MEDS: MORPHINE SULFATE ER 15 MG TABLET PO SCH (09:24)
[2016-10-04] MEDS: MORPHINE SULFATE ER 30 MG TABLET PO SCH (09:25)
== END 2016-10-04 09:48 | disposition home or self-care (01) ==
LOC: CATHCVL 10:07 → 6SEL 12:55 → CATHCVL 10-04 09:48
PROVIDERS: ATTEND Internal Medicine Interventional Cardiology
DX: I70.211 Atherosclerosis of native arteries of extremities with intermittent claudication, right leg (principal); I70.92 Chronic total occlusion of artery of the extremities; E78.5 Hyperlipidemia, unspecified; I10 Essential (primary) hypertension; F17.201 Nicotine dependence, unspecified, in remission; Z79.82 Long term (current) use of aspirin; Z79.891 Long term (current) use of opiate analgesic; Z79.899 Other long term (current) drug therapy; Z88.6 Allergy status to analgesic agent; Z88.1 Allergy status to other antibiotic agents
CPT/HCPCS: 37227; 80048 ×2; 85025 ×2; C1894 ×2; C1714; C1769 ×8; C1725 ×2; C1874 ×2; J2001; J2250; J1170; Q9967; J1644

== ENCOUNTER → 2017-03-21 | Outpatient (CLI) | payer MEDICARE ==
[2017-03-21 10:31] LABS: ALT 32 U/L (9-52); AST 17 U/L (14-36); Cholesterol 130 mg/dL (<200); HDL Cholesterol 31 mg/dL (40-60)
== END | disposition home or self-care (01) ==
LOC: LABWHC1 09:56
PROVIDERS: ATTEND Internal Medicine Interventional Cardiology
DX: E78.2 Mixed hyperlipidemia (principal)
CPT/HCPCS: 36415; 80061; 84450; 84460

== ENCOUNTER → 2017-09-06 | Outpatient (CLI) | payer MEDICARE ==
[2017-09-06 11:25] LABS: HCT 40.6 % (34.0-46.0); HGB 12.7 gm/dL (11.4-16.0); Hypochromasia Slight; MCH 28.9 pg (25.0-35.0); MCHC 31.3 g/dL (31.0-37.0); MCV 92.2 fL (80.0-100.0); Platelet Count 243 k/uL (150-450); RBC 4.41 m/uL (3.80-5.40); RDW 14.3 % (11.5-15.5); WBC 10.7 k/uL (3.8-10.6)
[2017-09-06 11:46] LABS: Albumin 3.9 g/dL (3.5-5.0); Calcium 9.5 mg/dL (8.4-10.2); Potassium 5.2 mmol/L (3.5-5.1); Total Bilirubin 0.3 mg/dL (0.2-1.3); Total Protein 6.8 g/dL (6.3-8.2)
[2017-09-06 12:57] LABS: Basophils # (M) 0.11 k/uL (0-0.2); Eosinophils # (M) 0.43 k/uL (0-0.7); Lymphocytes # (M) 2.46 k/uL (1.0-4.8); Monocytes # (M) 0.75 k/uL (0-1.0); Neutrophils # (M) 6.96 k/uL (1.3-7.7); Neutrophils % (M) 65 %; Nucleated Red Blood Cells 0 /100 WBC (0-0); Total Cells Counted 100
== END | disposition home or self-care (01) ==
LOC: LABWHC1 10:56
PROVIDERS: ATTEND Internal Medicine Interventional Cardiology
DX: E78.2 Mixed hyperlipidemia (principal); R31.0 Gross hematuria; E66.9 Obesity, unspecified
CPT/HCPCS: 36415; 80053; 80061; 84443; 85025

== ENCOUNTER → 2017-10-23 | Outpatient (CLI) | payer MEDICARE ==
[2017-10-23 14:38] LABS: HCT 37.1 % (34.0-46.0); HGB 11.5 gm/dL (11.4-16.0); Hypochromasia Moderate; MCV 93.7 fL (80.0-100.0); Platelet Count 216 k/uL (150-450); RBC 3.96 m/uL (3.80-5.40); WBC 10.6 k/uL (3.8-10.6)
[2017-10-23 14:48] LABS: Potassium 5.3 mmol/L (3.5-5.1)
== END | disposition home or self-care (01) ==
LOC: LABPAT 14:03
PROVIDERS: ATTEND Internal Medicine Interventional Cardiology
DX: Z01.812 Encounter for preprocedural laboratory examination (principal); I10 Essential (primary) hypertension; I25.10 Atherosclerotic heart disease of native coronary artery without angina pectoris
CPT/HCPCS: 36415; 80051; 82565; 84520; 85027

== ENCOUNTER 2017-10-30 07:32 | Day surgery (SDC) | payer MEDICARE ==
[~2017-10-30 07:32] MED LIST changes: +ALPRAZolam 0.25 MG TAB PO PRN; +ALPRAZolam 0.5 MG TAB PO PRN; +ASPIRIN 325 MG TAB PO STA; +ATORVASTATIN 80 MG TAB PO STA; +NITROGLYCERIN SL TABS 0.4 MG TAB SUBLINGUAL PRN
[2017-10-30] MEDS: SODIUM CHLORIDE 0.9% 1,000 ML IV SCH ×3 (07:55→16:34)
[2017-10-30] MEDS ORDERED: fentaNYL (PF) 50 MCG/ML 2 ML AMP IV ONE (11:14)
[2017-10-30] MEDS ORDERED: diphenhydrAMINE 50 MG/ML 1 ML VIAL IVP ONE (11:14)
[2017-10-30] MEDS: LIDOCAINE 1% INJ 10MG/ML (20 ML MDV) SQ ONE ×2 (11:18→11:39)
[2017-10-30] MEDS ORDERED: MIDAZOLAM 2 MG/2 ML VIAL IVP ONE (11:20)
[2017-10-30] MEDS ORDERED: IOPAMIDOL-370 125ML BTL INJ ONE (11:46)
[2017-10-30] MEDS ORDERED: RX INFO: IV CONTRAST WAS GIVEN 1 EACH MISC MISCELLANE PRN (11:57)
[2017-10-30] MEDS ORDERED: HYDROcodone/APAP 10-325MG 1 EACH TAB PO PRN (11:58)
[2017-10-30] MEDS ORDERED: NITROGLYCERIN SL TABS 0.4 MG TAB SUBLINGUAL PRN (11:58)
[2017-10-30] MEDS ORDERED: SODIUM CHLORIDE 0.9% 1,000 ML IV SCH (12:00)
--- NOTE | 2017-10-30 13:03 | CC ---
CARDIAC CATHETERIZATION REPORT Mr. Bah is a 62-year-old female with known history of hypertension, hyperlipidemia, peripheral vascular disease and has prior history of smoking, history of coronary artery disease who has presented with an acute myocardial infarction in September of 2015, underwent stenting of her right coronary artery. Recently she has been complaining of dyspnea on exertion, underwent myocardial perfusion imaging that revealed evidence of anterior wall ischemia. In view of that, recommendation made regarding cardiac catheterization. The procedures, risks and complication were discussed with the patient who is in full understanding and agreement. PROCEDURE: Patient was brought to the solar lab technician in a fasting semi-sedated state after receiving fentanyl and Benadryl and achieving moderate conscious sedated state. Attempts to advance the wire in the right radial artery were unsuccessful because of spasm at that time. Using Xylocaine anesthesia and Seldinger technique, a 6-Tristanian sheath was introduced in the right femoral artery. Selective right and left coronary angiography performed using 6-Tristanian 4 bend, right and left Siddhartha catheter. Multiple views of the coronary artery including hemiaxial views were obtained. Following that, a 6-Tristanian tight pigtail catheter was introduced in the left ventricle and pressures were calculated. Following that, catheter and sheaths were removed, hemostasis was obtained with deployment of an Angio-Seal. There was no immediate complication. Patient is returned to her room in stable condition. FINDINGS: LEFT MAIN: This is a large-sized vessel bifurcating into left circumflex, left anterior descending artery. Left main coronary artery has no evidence of high-grade stenosis. LEFT ANTERIOR DESCENDING ARTERY: This is a large-sized vessel, reaching toward the apex with a wraparound apex segment giving rise to a large diagonal branch. The left anterior descending artery as well as branches have no evidence of obstructive coronary artery disease. LEFT CIRCUMFLEX: This is a nondominant vessel, giving rise to a large obtuse marginal branch. The left circumflex has a 30% plaque without any evidence of high-grade stenosis. RIGHT CORONARY ARTERY: This is a dominant vessel, large in caliber, bifurcating distally into PDA and posterolateral segment branches. The stented segment is patent. There was no evidence off in-stent restenosis. She has mild intimal disease in the distal segment without any evidence of high-grade stenosis. LEFT VENTRICULOGRAM: Left ventriculogram was not performed. HEMODYNAMICS: There was no gradient across the aortic valve. The left ventricular end- diastolic pressure was 20 to 24 mmHg. CONCLUSION: 1. Mild coronary artery disease involving the left circumflex and the right coronary artery with no evidence of restenosis. 2. Mildly elevated left ventricular end-diastolic pressure. RECOMMENDATION: In view of finding anatomy, I recommend continue medical therapy with the aggressive risk modifications being initiated. Those findings and recommendation were discussed with the patient and her family who are in full understanding and agreement. Duration of procedure is 35 minutes. MMODL / IJN: [id number] /
[2017-10-30 15:44] VITALS: RESP 18; TEMP 97.7
[2017-10-30] MEDS ORDERED: MORPHINE SULFATE ER 15 MG TABLET PO SCH (18:00)
[2017-10-30 18:04] VITALS: BP 133/62; PULSE 86
[2017-10-30 18:43] VITALS: BMI 34.0
[2017-10-30] MEDS ORDERED: ATORVASTATIN 40 MG TAB PO SCH (21:00)
[2017-10-30] MEDS ORDERED: METOPROLOL TARTRATE 25 MG TAB PO SCH (21:00)
[2017-10-30] MEDS ORDERED: LISINOPRIL 20 MG TAB PO SCH (21:00)
[2017-10-30] MEDS ORDERED: PARoxetine 20 MG TAB PO SCH (21:00)
[2017-10-31] MEDS ORDERED: ASPIRIN 325 MG TAB PO SCH (09:00)
[2017-10-31] MEDS ORDERED: PRASUGREL 10 MG TAB PO SCH (09:00)
[2017-10-31] MEDS ORDERED: amLODIPine 10 MG TAB PO SCH (09:00)
== END 2017-10-30 18:55 | disposition home or self-care (01) ==
LOC: CATHCVL 07:32 → 3OBS 11:50 → CATHCVL 18:55
PROVIDERS: ATTEND Internal Medicine Interventional Cardiology
DX: I25.10 Atherosclerotic heart disease of native coronary artery without angina pectoris (principal); I10 Essential (primary) hypertension; E78.5 Hyperlipidemia, unspecified; I73.9 Peripheral vascular disease, unspecified; E78.2 Mixed hyperlipidemia; I25.5 Ischemic cardiomyopathy; F17.211 Nicotine dependence, cigarettes, in remission; I25.2 Old myocardial infarction; Z95.5 Presence of coronary angioplasty implant and graft; Z79.82 Long term (current) use of aspirin; Z79.899 Other long term (current) drug therapy; Z79.02 Long term (current) use of antithrombotics/antiplatelets
CPT/HCPCS: 93458; 84132; C1760; C1894 ×2; C1769; J2250; J1200; J2001; J3010; Q9967

== ENCOUNTER → 2017-12-03 | Outpatient (CLI) | payer MEDICARE ==
[2017-12-03 08:41] LABS: Calcium 9.8 mg/dL (8.4-10.2); Potassium 4.8 mmol/L (3.5-5.1)
== END | disposition home or self-care (01) ==
LOC: LABWHC1 07:52
PROVIDERS: ATTEND Internal Medicine Interventional Cardiology
DX: I25.10 Atherosclerotic heart disease of native coronary artery without angina pectoris (principal)
CPT/HCPCS: 36415; 80048

== ENCOUNTER → 2017-12-03 | Outpatient (CLI) | payer MEDICARE ==
[2017-12-03 08:16] LABS: HCT 38.7 % (34.0-46.0); HGB 11.9 gm/dL (11.4-16.0); Hypochromasia Marked; MCH 28.8 pg (25.0-35.0); MCHC 30.7 g/dL (31.0-37.0); MCV 93.9 fL (80.0-100.0); Mean Platelet Volume 7.3; Platelet Count 256 k/uL (150-450); RBC 4.12 m/uL (3.80-5.40); RDW 14.1 % (11.5-15.5); WBC 10.8 k/uL (3.8-10.6)
== END | disposition home or self-care (01) ==
LOC: LABPAT 07:48
PROVIDERS: ATTEND Internal Medicine Interventional Cardiology
DX: Z01.812 Encounter for preprocedural laboratory examination (principal); I10 Essential (primary) hypertension; E78.1 Pure hyperglyceridemia; I70.213 Atherosclerosis of native arteries of extremities with intermittent claudication, bilateral legs
CPT/HCPCS: 85027

== ENCOUNTER → 2018-01-16 | Outpatient (CLI) | payer MEDICARE ==
[2018-01-16 13:06] LABS: HCT 39.6 % (34.0-46.0); HGB 12.1 gm/dL (11.4-16.0); Hypochromasia Slight; MCH 28.4 pg (25.0-35.0); MCHC 30.5 g/dL (31.0-37.0); MCV 93.1 fL (80.0-100.0); Mean Platelet Volume 7.2; Platelet Count 234 k/uL (150-450); RBC 4.25 m/uL (3.80-5.40); RDW 14.5 % (11.5-15.5); WBC 10.7 k/uL (3.8-10.6)
[2018-01-16 13:21] LABS: Potassium 4.9 mmol/L (3.5-5.1)
== END | disposition home or self-care (01) ==
LOC: LABPAT 11:22
PROVIDERS: ATTEND Internal Medicine Interventional Cardiology
DX: Z01.812 Encounter for preprocedural laboratory examination (principal); I10 Essential (primary) hypertension; E78.1 Pure hyperglyceridemia; I70.213 Atherosclerosis of native arteries of extremities with intermittent claudication, bilateral legs
CPT/HCPCS: 36415; 80051; 82565; 84520; 85027

== ENCOUNTER 2018-01-24 06:20 | Day surgery (SDC) | payer MEDICARE ==
[2018-01-23 08:29] VITALS: BMI 28.6
[~2018-01-24 06:20] MED LIST changes: -ALPRAZolam 0.5 MG TAB PO PRN; -ATORVASTATIN 80 MG TAB PO STA; -NITROGLYCERIN SL TABS 0.4 MG TAB SUBLINGUAL PRN
[2018-01-24] MEDS ORDERED: SODIUM CHLORIDE 0.9% 1,000 ML IV ONE (06:55)
[2018-01-24 07:12] LABS: Potassium 4.4 mmol/L (3.5-5.1)
[2018-01-24 07:41] LABS: HCT 39.7 % (34.0-46.0); HGB 12.1 gm/dL (11.4-16.0); Hypochromasia Slight; MCHC 30.5 g/dL (31.0-37.0); MCV 91.8 fL (80.0-100.0); Mean Platelet Volume 6.9; Platelet Count 228 k/uL (150-450); RBC 4.32 m/uL (3.80-5.40); RDW 14.3 % (11.5-15.5); WBC 10.3 k/uL (3.8-10.6)
[2018-01-24 08:06] LABS: Lymphocytes # (M) 2.78 k/uL (1.0-4.8); Monocytes # (M) 0.41 k/uL (0-1.0); Neutrophils % (M) 68 %; Nucleated Red Blood Cells 0 /100 WBC (0-0); Total Cells Counted 100
[2018-01-24 08:08] LABS: Poikilocytosis (M) Present
[2018-01-24] MEDS ORDERED: MIDAZOLAM 2 MG/2 ML VIAL IV ONE (08:28)
[2018-01-24] MEDS: fentaNYL (PF) 50 MCG/ML 2 ML AMP IV ONE ×2 (08:28→09:14)
[2018-01-24] MEDS ORDERED: LIDOCAINE 1% INJ 10MG/ML (20 ML MDV) SQ ONE (08:29)
[2018-01-24] MEDS ORDERED: HEPARIN SODIUM 1,000 UN/ML (10ML VL) IV ONE (08:32)
[2018-01-24] MEDS ORDERED: IOPAMIDOL-250 100ML BTL INTRAARTER ONE (09:58)
[2018-01-24] MEDS ORDERED: NITROGLYCERIN SL TABS 0.4 MG TAB SUBLINGUAL PRN (10:06)
[2018-01-24] MEDS ORDERED: HYDROcodone/APAP 10-325MG 1 EACH TAB PO PRN (10:06)
--- NOTE | 2018-01-24 10:31 | LTR ---
Date of Service: 01/24/2018 RE: Lu Bah Dear Dr. Lawrence; Ms. Lu Bah was referred by Dr. Sweet for further evaluation of peripheral arterial disease. She was experiencing right leg intermittent claudication and she underwent an angiogram which revealed occluded right femoral artery and she underwent successful balloon angioplasty of the right femoral artery with good angiographic results. Thank you for allowing us to participate in her care and please do not hesitate to call for any question or concern. Sincerely, Alli Simeon MD MMJUANL / LILIBETHN: [id number] /
--- NOTE | 2018-01-24 10:40 | AN ---
ANGIOGRAPHY REPORT DATE OF SERVICE: January 24, 2018 PERFORMING PHYSICIAN: Alli Siemon MD, paper inspector. PROCEDURE PERFORMED: 1. Selective right oorbx-vky-dhsx angiogram/right popliteal SFA angiogram. 2. Intravascular ultrasound IVUS of the right superficial femoral artery. 3. An atherectomy, balloon angioplasty, and stenting of the right SFA. 4. Selective left SFA and left common femoral artery angiogram. INDICATION: This is a pleasant 62-year-old female patient who sees Dr. Sweet in the office as an outpatient and sees Dr. Lawrence, who is known to have peripheral arterial disease and peripheral intervention of bilateral SFA was experiencing symptoms of intermittent claudication. She underwent an angiogram recently and that revealed occluded right SFA and intermediate disease involving the left SFA. She was brought today to undergo a APPLICATIONS ADMINISTRATOR of the right SFA. APPROACH: Left common femoral artery. COMPLICATION: None. LEVEL OF SEDATION: Moderate with sedation length of 96 minutes. PROCEDURE DESCRIPTION: After obtaining an informed consent, the patient was brought to the cardiac shift lab technician. The left common femoral artery was cannulated using micropuncture technique, the micropuncture wire passed easily then I placed a 6-Haitian sheath 11 cm in the left common femoral artery. At that point, anticoagulation was initiated using heparin and the patient was given 8000 units of heparin IV with continuous ACT monitoring throughout the procedure. After that I did select the right SFA using a Rim catheter with 0.035 Greig Advantage wire. After that, I did exchange my 11 cm 6-Haitian sheath into into 70 cm 6-Haitian Raabe sheath using the 0.035 glidewire, Greig Advantage and the tip of the 70 cm sheath was positioned in the right common femoral artery. At that point, I did selective right qkodc-xrz-nwum angiogram, selective right popliteal and right SFA angiogram. After that I was able to cross the occlusion in the right SFA using a 0.[address] [place] [address] wire with the backup support of 0.014 CXI catheter. I did prove that I was in the true lumen by injecting dye through the CXI catheter. Before I pursue any atherectomy, I did intravascular ultrasound IVUS of the right SFA which revealed no evidence of thrombus. At that point I did atherectomy of the right SFA using the TurboHawk device with extraction of significant amount of plaque. After that, I did balloon angioplasty using AngioSculpt balloon which was 6 mm balloon. There was residual significant dissection involving the area between the 2 stents on the right SFA which confirmed by IVUS and because of that, I stented that segment. Then I did balloon angioplasty of the distal and proximal right SFA using drug-coated balloon. The final angiogram showed excellent results. The procedure was completed without any complication. By the end, I did exchange my 70 cm 6-Haitian sheath into 11 cm 6-Haitian sheath using a 0.035 Greig Advantage wire then I did selective left SFA and left common femoral artery angiogram which revealed only intermediate lesion involving the left SFA, which needs to be treated medically. POSTPROCEDURE MANAGEMENT: 1. Dual antiplatelet therapy. 2. Risk factor modifications. 3. Follow up with the patient. MMODL / IJN: [id number] /
[2018-01-24] MEDS ORDERED: HYDROcodone/APAP 10-325MG 1 EACH TAB PO ONE (11:51)
[2018-01-24] MEDS: MORPHINE SULFATE ER 15 MG TABLET PO SCH (20:55)
[2018-01-24] MEDS: METOPROLOL TARTRATE 25 MG TAB PO SCH (20:57)
[2018-01-24] MEDS ORDERED: PARoxetine 20 MG TAB PO SCH (21:00)
[2018-01-24] MEDS ORDERED: ATORVASTATIN 40 MG TAB PO SCH (21:00)
[2018-01-24] MEDS: LISINOPRIL 20 MG TAB PO SCH (22:59)
[2018-01-25 07:42] VITALS: RESP 17
[2018-01-25] MEDS: METOPROLOL TARTRATE 25 MG TAB PO SCH (07:44)
[2018-01-25] MEDS: LISINOPRIL 20 MG TAB PO SCH (07:45)
[2018-01-25] MEDS: MORPHINE SULFATE ER 15 MG TABLET PO SCH (07:45)
[2018-01-25] MEDS ORDERED: SPIRONOLACTONE 25 MG TAB PO SCH (09:00)
[2018-01-25] MEDS ORDERED: HYDROCHLOROTHIAZIDE 25 MG TAB PO SCH (09:00)
[2018-01-25] MEDS ORDERED: PRASUGREL 10 MG TAB PO SCH (09:00)
[2018-01-25] MEDS ORDERED: ASPIRIN 325 MG TAB PO SCH (09:00)
[2018-01-25] MEDS ORDERED: amLODIPine 10 MG TAB PO SCH (09:00)
[2018-01-25 11:36] VITALS: BP 92/50; PULSE 77; TEMP 98
--- NOTE | 2018-01-25 13:56 | PN ---
PROGRESS NOTE Mrs. Bah is a 62-year-old female with a known history of coronary artery disease. She underwent cardiac catheterization in October of this year and was found to have mild obstructive disease, but she was noted to have severe peripheral vascular disease. She underwent atherectomy, balloon angioplasty and stenting of the right SFA. She is feeling better today. Her breathing is better. She is denying any symptoms of chest pain. She denies any dizziness or palpitations. She denies any nausea. She continues to be at this time on aspirin once a day, amlodipine 10 mg daily, Lipitor 40 mg daily, hydrochlorothiazide 25 mg daily, lisinopril 20 mg twice a day, metoprolol tartrate 25 mg twice a day, paroxetine, Effient 10 mg daily, and spironolactone 25 mg daily. PHYSICAL EXAMINATION: Blood pressure 105/60 with a heart rate in the 70s. LUNGS: Clear. HEART: Regular rate and rhythm. S1, S2. No S3. No rub. ABDOMEN: Soft, nontender. Positive bowel sounds EXTREMITIES: No edema. Left groin intact. Extremities warm. LAB DATA: Creatinine 0.88. IMPRESSION: 1. Status post revascularization of right SFA. 2. History of hypertension. 3. Hyperlipidemia. 4. Prior history of smoking. RECOMMENDATION: Patient should be able to be discharged home today and followed as an outpatient in one week. MMODL / IJN: [id number] /
--- NOTE | 2018-01-27 10:52 | IR ---
Fluoroscopy HISTORY: Pain in right leg 19.5 minutes fluoroscopy time supplied to the referring clinician. 649 intraoperative C-arm images d ocument the procedure. See dictated report from cardiology.
== END 2018-01-25 13:31 | disposition home or self-care (01) ==
LOC: CATHCVL 06:20 → 3SCARD 10:10 → CATHCVL 01-25 13:31
PROVIDERS: ATTEND Internal Medicine Interventional Cardiology
DX: I70.213 Atherosclerosis of native arteries of extremities with intermittent claudication, bilateral legs (principal); F17.210 Nicotine dependence, cigarettes, uncomplicated; I10 Essential (primary) hypertension; E78.2 Mixed hyperlipidemia; I25.5 Ischemic cardiomyopathy; I25.10 Atherosclerotic heart disease of native coronary artery without angina pectoris; E78.1 Pure hyperglyceridemia; Z79.82 Long term (current) use of aspirin; Z79.891 Long term (current) use of opiate analgesic; Z79.899 Other long term (current) drug therapy; Z88.6 Allergy status to analgesic agent; Z88.1 Allergy status to other antibiotic agents; Z88.8 Allergy status to other drugs, medicaments and biological substances
CPT/HCPCS: 37227; 85347; 37252; 80048; 82565; 85025; C1894 ×2; C1725 ×2; C1769 ×4; C1714; C1753; C2623 ×2; C1874; J2250; J2001; J3010; J1644; Q9966

== ENCOUNTER 2018-04-22 08:18 | Inpatient (IN) | payer MEDICARE ==
[2018-04-22 08:31] LABS: Glucose,Whole Blood 136 mg/dL (75-99)
[2018-04-22] MEDS ORDERED: NALOXONE 0.4 MG/ML 1 ML VIAL IM STA (08:32)
[2018-04-22] MEDS ORDERED: SODIUM CHLORIDE 0.9% 1,000 ML IV ONE ×2 (08:32)
--- NOTE | 2018-04-22 08:37 | ED ---
General Adult HPI - General Chief complaint: Altered Mental Status Stated complaint: Confusion Time Seen by Provider: 04/22/18 08:18 Source: family, RN notes reviewed Mode of arrival: wheelchair Limitations: no limitations - History of Present Illness Initial comments: This is a 62-year-old female presents emergency Department with her and the states she when he woke her up she was altered and extremely weak. states last night he went to bed at 7:00 and she was fine without complaint. Patient herself is unable to give an accurate history because she is altered but she does deny any new pain. states there's been no vomiting or diarrhea that he knows of he states that she never complained of any fever or chills. The patient has never been in any respiratory distress." His he does not know of any recent trauma. - Related Data Home Medications Medication Instructions Recorded Confirmed HYDROcodone/APAP 10-325MG [[place] 1 tab PO Q12HR PRN 10/16/15 04/22/18 10-325] Morphine Sulfate [Tomasa] 50 mg PO Q12H 10/16/15 04/22/18 Lisinopril [Zestril] 20 mg PO BID 09/14/16 04/22/18 Spironolactone 25 mg PO DAILY 01/23/18 04/22/18 amLODIPine [Norvasc] 10 mg PO QAM 01/23/18 04/22/18 PARoxetine HCL [Paxil] 30 mg PO DAILY 04/22/18 04/22/18 Previous Rx's Medication Instructions Recorded Nitroglycerin Sl Tabs [Nitrostat] 0.4 mg SUBLINGUAL Q5M PRN #25 tab 10/20/15 Prasugrel [Effient] 10 mg PO DAILY #30 tab 10/20/15 Aspirin 325 mg PO DAILY #30 tab 05/16/16 Atorvastatin [Lipitor] 40 mg PO HS #30 tablet 05/16/16 Hydrochlorothiazide 25 mg PO DAILY #30 tablet 05/16/16 Metoprolol Tartrate [Lopressor] 25 mg PO BID #60 tablet 05/16/16 Allergies Allergy/AdvReac Type Severity Reaction Status Date / Time erythromycin base Allergy Unknown Verified 04/22/18 09:28 ibuprofen Allergy Unknown Verified 04/22/18 09:28 NSAIDS (Non-Steroidal Allergy Anaphylaxis Verified 04/22/18 09:28 Anti-Inflamma pregabalin [From Lyrica] Allergy Rash/Hives Verified 04/22/18 09:28 tramadol [From Ultram] Allergy Unknown Verified 04/22/18 09:28 Review of Systems ROS Statement: Those systems with pertinent positive or pertinent negative responses have been documented in the HPI. ROS Other: All systems not noted in ROS Statement are negative. 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 , varicose veins, no cpap used, bleeding ulcer x2, Last Myocardial Infarction Date:: 10/16/15 History of Any Multi-Drug Resistant Organisms: None Reported Past Surgical History: Heart Catheterization With Stent, Hysterectomy, Tonsillectomy Additional Past Surgical History / Comment(s): Multiple D & C's.,ABDOMINAL AORTAGRAM, PERIPHERAL ANGIOGRAM, one cardiac stents, stents in risa legs(total 6) Past Anesthesia/Blood Transfusion Reactions: No Reported Reaction Date of Last Stent Placement:: 10/16/15 Past Psychological History: Anxiety, Depression, Panic Disorder Smoking Status: Former smoker Past Alcohol Use History: None Reported Past Drug Use History: None Reported - Past Family History Father Family Medical History: Deep Vein Thrombosis (DVT) Mother Family Medical History: Cancer Additional Family Medical History / Comment(s): breast General Exam - General Exam Comments Initial Comments: GENERAL: Patient is well-developed and well-nourished. Patient is nontoxic and well- hydrated and is in mild distress. ENT: Neck is soft and supple. No significant lymphadenopathy is noted. Oropharynx is clear. Moist mucous membranes. Neck has full range of motion without eliciting any pain. EYES: The sclera were anicteric and conjunctiva were pink and moist. Extraocular movements were intact and pupils were equal round and reactive to light. Eyelids were unremarkable. PULMONARY: Unlabored respirations. Good breath sounds bilaterally. No audible rales rhonchi or wheezing was noted. CARDIOVASCULAR: There is a regular rate and rhythm without any murmurs gallops or rubs. ABDOMEN: Soft and nontender with normal bowel sounds. SKIN: Skin is clear with no lesions or rashes and otherwise unremarkable. NEUROLOGIC: Patient is alert and oriented 2. Cranial nerves II through XII are grossly intact. Motor and sensory are also intact. Normal speech, volume and content. Symmetrical smile. MUSCULOSKELETAL: Normal extremities with adequate strength and full range of motion. No lower extremity swelling or edema. No calf tenderness. LYMPHATICS: No significant lymphadenopathy is noted PSYCHIATRIC: Unable to assess Limitations: no limitations Course Vital Signs 04/22/18 04/22/18 08:18 08:41 Temperature 98.7 F Pulse Rate 70 Respiratory 18 18 Rate Blood Pressure 58/34 O2 Sat by Pulse 83 L Oximetry Medical Decision Making - Medical Decision Making EKG shows normal sinus rhythm at 100 bpm [place] interval 156 QRS is 82 QT interval 346 QTC is 446. Patient's EKG shows no ST segment elevation. CT of the brain shows no acute abnormality. Chest x-ray shows no acute normalities. Patient was given 1 mg of Narcan and it did bring her closer back to her baseline according to the she was still a little altered but much improved. Patient has acute renal failure and a potassium of 6.0 to start the patient on a bicarb drip with 3 A of bicarbonate and D5 normal saline. I also gave the patient some calcium chloride. I contacted sounds physician's Dr. Beach he agreed to admit the patient admitted the patient I wrote admitting orders I also consult nephrology. I spoke with Dr. Hull and he wanted the patient to be placed on a D5 0.9 normal saline drip with 3 A of bicarbonate 125 an hour. He also wanted 2 A of bicarb pushed medially. He also wanted D50 with insulin given as well as calcium chloride. All of these were started in the emergency department. - Lab Data Result diagrams: 04/22/18 08:30 04/22/18 08:30 Lab Results 04/22/18 04/22/18 04/22/18 Range/Units 08:29 08:30 08:30 WBC 12.5 H (3.8-10.6) k/uL RBC 3.38 L (3.80-5.40) m/uL Hgb 9.8 L (11.4-16.0) gm/dL Hct 32.1 L (34.0-46.0) % MCV 95.0 (80.0-100.0) fL MCH 28.9 (25.0-35.0) pg MCHC 30.4 L (31.0-37.0) g/dL RDW 14.7 (11.5-15.5) % Plt Count 236 (150-450) k/uL Neutrophils % (Manual) 87 % Lymphocytes % (Manual) 5 % Monocytes % (Manual) 8 % Neutrophils # (Manual) 10.88 H (1.3-7.7) k/uL Lymphocytes # (Manual) 0.63 L (1.0-4.8) k/uL Monocytes # (Manual) 1.00 (0-1.0) k/uL Nucleated RBCs 0 (0-0) /100 WBC Manual Slide Review Performed Hypochromasia Marked PT (9.0-12.0) sec INR (<1.2) APTT (22.0-30.0) sec D-Dimer (<0.60) mg/L FEU Sodium (137-145) mmol/L Potassium (3.5-5.1) mmol/L Chloride (98-107) mmol/L Carbon Dioxide (22-30) mmol/L Anion Gap mmol/L BUN (7-17) mg/dL Creatinine (0.52-1.04) mg/dL Est GFR (CKD-EPI)AfAm (>60 ml/min/1.73 sqM) Est GFR (CKD-EPI)NonAf (>60 ml/min/1.73 sqM) Glucose (74-99) mg/dL POC Glucose (mg/dL) 136 H (75-99) mg/dL POC Glu Bag Hanger ID Argenis Esparza Plasma Lactic Acid Ronak (0.7-2.0) mmol/L Calcium (8.4-10.2) mg/dL Magnesium (1.6-2.3) mg/dL Total Bilirubin (0.2-1.3) mg/dL AST (14-36) U/L ALT (9-52) U/L Alkaline Phosphatase (38-126) U/L Total Creatine Kinase 2216 H* (30-135) U/L CK-MB (CK-2) 30.9 H (0.0-2.4) ng/mL CK-MB (CK-2) Rel Index Troponin I 0.139 H* (0.000-0.034) ng/mL Total Protein (6.3-8.2) g/dL Albumin (3.5-5.0) g/dL 04/22/18 04/22/18 04/22/18 Range/Units 08:30 08:30 08:30 WBC (3.8-10.6) k/uL RBC (3.80-5.40) m/uL Hgb (11.4-16.0) gm/dL Hct (34.0-46.0) % MCV (80.0-100.0) fL MCH (25.0-35.0) pg MCHC (31.0-37.0) g/dL RDW (11.5-15.5) % Plt Count (150-450) k/uL Neutrophils % (Manual) % Lymphocytes % (Manual) % Monocytes % (Manual) % Neutrophils # (Manual) (1.3-7.7) k/uL Lymphocytes # (Manual) (1.0-4.8) k/uL Monocytes # (Manual) (0-1.0) k/uL Nucleated RBCs (0-0) /100 WBC Manual Slide Review Hypochromasia PT 10.0 (9.0-12.0) sec INR 0.9 (<1.2) APTT 22.8 (22.0-30.0) sec D-Dimer 0.75 H (<0.60) mg/L FEU Sodium 133 L (137-145) mmol/L Potassium 6.8 H* (3.5-5.1) mmol/L Chloride 96 L (98-107) mmol/L Carbon Dioxide 17 L (22-30) mmol/L Anion Gap 20 mmol/L BUN 132 H* (7-17) mg/dL Creatinine 10.07 H* (0.52-1.04) mg/dL Est GFR (CKD-EPI)AfAm 4 (>60 ml/min/1.73 sqM) Est GFR (CKD-EPI)NonAf 4 (>60 ml/min/1.73 sqM) Glucose 136 H (74-99) mg/dL POC Glucose (mg/dL) (75-99) mg/dL POC Glu Bag Hanger ID Plasma Lactic Acid Ronak 1.6 (0.7-2.0) mmol/L Calcium 8.0 L (8.4-10.2) mg/dL Magnesium 1.7 (1.6-2.3) mg/dL Total Bilirubin 0.5 (0.2-1.3) mg/dL AST 52 H (14-36) U/L ALT 31 (9-52) U/L Alkaline Phosphatase 73 (38-126) U/L Total Creatine Kinase (30-135) U/L CK-MB (CK-2) (0.0-2.4) ng/mL CK-MB (CK-2) Rel Index Troponin I (0.000-0.034) ng/mL Total Protein 6.8 (6.3-8.2) g/dL Albumin 3.8 (3.5-5.0) g/dL Critical Care Time Critical Care Time: Yes Total Critical Care Time: 35 Disposition Clinical Impression: Rhabdomyolysis, Acute kidney failure, Hyperkalemia, Altered mental status Disposition: ADMITTED IP TO THIS HOSP Referrals: Kaitlin Lawrence MD [Primary Care Provider] - 1-2 days Time of Disposition: 10:02
[2018-04-22 09:12] LABS: HCT 32.1 % (34.0-46.0); HGB 9.8 gm/dL (11.4-16.0); Hypochromasia Marked; MCH 28.9 pg (25.0-35.0); MCHC 30.4 g/dL (31.0-37.0); Platelet Count 236 k/uL (150-450); RBC 3.38 m/uL (3.80-5.40); RDW 14.7 % (11.5-15.5); WBC 12.5 k/uL (3.8-10.6)
--- NOTE | 2018-04-22 09:12 | XR ---
EXAMINATION TYPE: XR chest 1V portable DATE OF EXAM: 04/22/2018 COMPARISON: Chest x-ray October 16, 2015 HISTORY: Altered mental status and weakness, history of coronary stent. TECHNIQUE: Single AP portable frontal upright view of the chest is obtained. FINDINGS: Exam slightly suboptimal due to portable technique and patient's large body habitus. There is chronic parenchymal change without suspicious new focal air space opacity, pleural effusion, or pn eumothorax seen. The cardiac silhouette size remains enlarged. The osseous structures are intact. IMPRESSION: Chronic parenchymal change and cardiomegaly without new suspicious acute pulmonary proce ss.
[2018-04-22 09:23] LABS: Albumin 3.8 g/dL (3.5-5.0); Magnesium 1.7 mg/dL (1.6-2.3); Total Bilirubin 0.5 mg/dL (0.2-1.3); Total Protein 6.8 g/dL (6.3-8.2)
[2018-04-22 09:33] LABS: INR 0.9 (<1.2); Partial Thromboplastin Time 22.8 sec (22.0-30.0)
--- NOTE | 2018-04-22 09:36 | CT ---
EXAMINATION TYPE: CT brain wo con DATE OF EXAM: 04/22/2018 HISTORY: Confusion and altered mental status CT DLP: 1111.4 mGycm. Automated Exposure Control for Dose Reduction was Utilized. TECHNIQUE: CT scan of the head is performed without contrast. COMPARISON: None. FINDINGS: There is no acute intracranial hemorrhage or midline shift identified. Ventricles and sul ci are within normal limits in size for patient's age. Mckeon-white matter differentiation is fairly we ll-maintained. The calvarium is intact. The globes are intact and the visualized sinuses are clear. IMPRESSION: No acute intracranial hemorrhage or midline shift.
[2018-04-22 09:37] LABS: Potassium 6.8 mmol/L (3.5-5.1)
[2018-04-22] MEDS ORDERED: CALCIUM CHLORIDE 100 MG/ML 10 ML SYRINGE IVP STA (09:46)
[2018-04-22 09:47] LABS: Creatine Kinase MB 30.9 ng/mL (0.0-2.4)
[2018-04-22 09:50] LABS: Troponin I 0.139 ng/mL (0.000-0.034)
[2018-04-22] MEDS ORDERED: DEXTROSE 50%-WATER 50 ML SYRINGE IVP STA (10:03)
[2018-04-22 10:05] LABS: D-Dimer 0.75 mg/L FEU (<0.60)
[2018-04-22 10:11] LABS: Lymphocytes # (M) 0.63 k/uL (1.0-4.8); Neutrophils # (M) 10.88 k/uL (1.3-7.7); Neutrophils % (M) 87 %; Nucleated Red Blood Cells 0 /100 WBC (0-0); Total Cells Counted 100
[2018-04-22] MEDS ORDERED: SODIUM BICARB 8.4% 50 ML SYR (1 MEQ/ML) IV ONE (10:15)
[2018-04-22] MEDS ORDERED: INSULIN REGULAR 100 UNIT/ML VIAL IV ONE (10:15)
[2018-04-22 10:40] LABS: Amorphous Sediment,Urine Rare /hpf; Appearance,Urine Cloudy (Clear); Bacteria,Urine Rare /hpf; Bilirubin,Urine Negative (Negative); Blood,Urine Moderate (Negative); Color,Urine Yellow; Glucose,Urine (UA) Negative (Negative); Ketones,Urine Negative (Negative); Leukocyte Esterase,Urine Negative (Negative); Mucus,Urine Rare /hpf; Nitrite,Urine Negative (Negative); Protein,Urine 1+ (Negative); RBC,Urine 1 /hpf (0-5); Specific Gravity,Urine 1.011 (1.001-1.035); Squamous Epithelial Cell,Urine 1 /hpf (0-4); Urobilinogen,Urine <2.0 mg/dL (<2.0); WBC,Urine 16 /hpf (0-5)
[2018-04-22 10:54] LABS: Amphetamine Screen,Urine Not Detected (NotDetected); Barbiturate Screen,Urine Not Detected (NotDetected); Benzodiazepines Screen,Urine Not Detected (NotDetected); Cocaine Screen,Urine Not Detected (NotDetected); Methadone Screen, Urine Not Detected (NotDetected); Opiate Screen,Urine Detected (NotDetected); Oxycodone Screen, Urine Not Detected (NotDetected); Phencyclidine Screen,Urine Not Detected (NotDetected); Tricyclic Antidepressant,Urine Not Detected (NotDetected); Urn Cannabinoid Scrn Not Detected (NotDetected)
[2018-04-22] MEDS ORDERED: ONDANSETRON 4 MG in SODIUM CHLORIDE 0.9% 50 ML IVPB PRN (11:01)
[2018-04-22] MEDS ORDERED: ONDANSETRON 4 MG/2 ML VIAL IVP PRN (11:07)
--- NOTE | 2018-04-22 11:20 | P.HPIM ---
History of Present Illness H&P Date: 04/22/18 Chief Complaint: Confusion and weakness The patient is a 62-year-old female with a past medical history of essential hypertension, coronary artery disease with stenting, peripheral artery disease, hyperlipidemia who presents to the ER via private vehicle with her Tobi with chief complaints of confusion and weakness beginning today. The patient is an unreliable historian as she is confused hence most of the history is gleaned from medical records and her Tobi. Apparently the patient has been increasingly fatigued since yesterday, and this morning on waking up appeared confused and disoriented, there was no sports speech or focal weakness, however the patient's reports that she was confused, unable to answer questions appropriately, unaware which medications to take, and was too weak to open her pill bottles. The patient denies any chest pain but does report shortness of air and cough beginning today, she does report symptoms of dysuria and lower abdominal pain, denies any subjective fevers chills or night sweats. Patient also endorsed myalgias and weakness in all extremities. On arrival to the ER the patient was hypotensive with blood pressure 58/34, she was given aggressive IV fluids total of 2 L and narcan, she received a conference and workup including labs that showed multiple gross abnormalities including a creatinine of 10.1, d-dimer 0.75, potassium 6.8, sodium 133, BUN 132 , WBC count 12.5, hemoglobin 9.8, total CK 2216, troponin 0.139. EKG showed sinus mechanism without any suggestion of acute ischemia. Urinalysis showing moderate blood +1 protein and [address] of the head showed no acute intracranial hemorrhage or midline shift. 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 , varicose veins, no cpap used, bleeding ulcer x2, Last Myocardial Infarction Date:: 10/16/15 History of Any Multi-Drug Resistant Organisms: None Reported Past Surgical History: Heart Catheterization With Stent, Hysterectomy, Tonsillectomy Additional Past Surgical History / Comment(s): Multiple D & C's.,ABDOMINAL AORTAGRAM, PERIPHERAL ANGIOGRAM, one cardiac stents, stents in risa legs(total 6) Past Anesthesia/Blood Transfusion Reactions: No Reported Reaction Date of Last Stent Placement:: 10/16/15 Past Psychological History: Anxiety, Depression, Panic Disorder Smoking Status: Former smoker Past Alcohol Use History: None Reported Past Drug Use History: None Reported - Past Family History Father Family Medical History: Deep Vein Thrombosis (DVT) Mother Family Medical History: Cancer Additional Family Medical History / Comment(s): breast Medications and Allergies Home Medications Medication Instructions Recorded Confirmed Type HYDROcodone/APAP 10-325MG [[place] 1 tab PO Q12HR PRN 10/16/15 04/22/18 History 10-325] Morphine Sulfate [Tomasa] 50 mg PO Q12H 10/16/15 04/22/18 History Nitroglycerin Sl Tabs [Nitrostat] 0.4 mg SUBLINGUAL Q5M PRN #25 tab 10/20/15 Rx Prasugrel [Effient] 10 mg PO DAILY #30 tab 10/20/15 04/22/18 Rx Aspirin 325 mg PO DAILY #30 tab 05/16/16 04/22/18 Rx Atorvastatin [Lipitor] 40 mg PO HS #30 tablet 05/16/16 04/22/18 Rx Hydrochlorothiazide 25 mg PO DAILY #30 tablet 05/16/16 04/22/18 Rx Metoprolol Tartrate [Lopressor] 25 mg PO BID #60 tablet 05/16/16 04/22/18 Rx Lisinopril [Zestril] 20 mg PO BID 09/14/16 04/22/18 History Spironolactone 25 mg PO DAILY 01/23/18 04/22/18 History amLODIPine [Norvasc] 10 mg PO QAM 01/23/18 04/22/18 History PARoxetine HCL [Paxil] 30 mg PO DAILY 04/22/18 04/22/18 History Allergies Allergy/AdvReac Type Severity Reaction Status Date / Time erythromycin base Allergy Unknown Verified 04/22/18 09:28 ibuprofen Allergy Unknown Verified 04/22/18 09:28 NSAIDS (Non-Steroidal Allergy Anaphylaxis Verified 04/22/18 09:28 Anti-Inflamma pregabalin [From Lyrica] Allergy Rash/Hives Verified 04/22/18 09:28 tramadol [From Ultram] Allergy Unknown Verified 04/22/18 09:28 Physical Exam Vitals: Vital Signs Temp Pulse Resp BP Pulse Ox 04/22/18 08:41 18 04/22/18 08:18 98.7 F 70 18 58/34 83 L Intake and Output 04/21/18 04/22/18 04/22/18 22:59 06:59 14:59 Other: Weight 92.986 kg Constitutional: No acute distress, conversant, pleasant Eyes: Anicteric sclerae, moist conjunctiva, no lid-lag, PERRLA ENMT: NC/AT,Oropharynx clear, no erythema, exudates Neck:Supple, FROM, no masses, or JVD, No carotid bruits; No thyromegaly Lungs: Clear to auscultation, Clear to percussion, Normal respiratory effort, no accessory muscle use Cardiovascular: Heart regular in rate and rhythm, No murmurs, gallops, or rubs no peripheral edema Abdominal: Soft tender to palpation in the suprapubic area, nom distended, no guarding, no rebound or rigidity, Normoactive bowel sounds No hepatomegaly, No splenomegaly, No palpable mass No abdominal wall hernia noted Skin: Normal temperature, tone, texture, turgor, No induration No subcutaneous nodules, No rash, lesions, No ulcers Extremities:No digital cyanosis No clubbing, Pedal pulses intact and symmetrical Radial pulses intact and symmetrical Normal gait and station, No calf tenderness Psychiatric: Awake and alert, confused and disoriented oriented only to self, only knows her birthday Neuro: Muscles Strength 5/5 in all 4 extremities, Sensation to light touch grossly present throughout, Cranial nerves II-XII grossly intact. No focal sensory deficits Results CBC & Chem 7: 04/22/18 08:30 04/22/18 08:30 Labs: Abnormal Lab Results - Last 24 Hours (Table) 04/22/18 04/22/18 04/22/18 Range/Units 08:29 08:30 08:30 WBC 12.5 H (3.8-10.6) k/uL RBC 3.38 L (3.80-5.40) m/uL Hgb 9.8 L (11.4-16.0) gm/dL Hct 32.1 L (34.0-46.0) % MCHC 30.4 L (31.0-37.0) g/dL Neutrophils # (Manual) 10.88 H (1.3-7.7) k/uL Lymphocytes # (Manual) 0.63 L (1.0-4.8) k/uL D-Dimer (<0.60) mg/L FEU Sodium (137-145) mmol/L Potassium (3.5-5.1) mmol/L Chloride (98-107) mmol/L Carbon Dioxide (22-30) mmol/L BUN (7-17) mg/dL Creatinine (0.52-1.04) mg/dL Glucose (74-99) mg/dL POC Glucose (mg/dL) 136 H (75-99) mg/dL Calcium (8.4-10.2) mg/dL AST (14-36) U/L Total Creatine Kinase 2216 H* (30-135) U/L CK-MB (CK-2) 30.9 H (0.0-2.4) ng/mL Troponin I 0.139 H* (0.000-0.034) ng/mL 04/22/18 04/22/18 Range/Units 08:30 08:30 WBC (3.8-10.6) k/uL RBC (3.80-5.40) m/uL Hgb (11.4-16.0) gm/dL Hct (34.0-46.0) % MCHC (31.0-37.0) g/dL Neutrophils # (Manual) (1.3-7.7) k/uL Lymphocytes # (Manual) (1.0-4.8) k/uL D-Dimer 0.75 H (<0.60) mg/L FEU Sodium 133 L (137-145) mmol/L Potassium 6.8 H* (3.5-5.1) mmol/L Chloride 96 L (98-107) mmol/L Carbon Dioxide 17 L (22-30) mmol/L BUN 132 H* (7-17) mg/dL Creatinine 10.07 H* (0.52-1.04) mg/dL Glucose 136 H (74-99) mg/dL POC Glucose (mg/dL) (75-99) mg/dL Calcium 8.0 L (8.4-10.2) mg/dL AST 52 H (14-36) U/L Total Creatine Kinase (30-135) U/L CK-MB (CK-2) (0.0-2.4) ng/mL Troponin I (0.000-0.034) ng/mL Assessment and Plan (1) Metabolic encephalopathy Current Visit: Yes Status: Acute Code(s): G93.41 - METABOLIC ENCEPHALOPATHY SNOMED Code(s): 92874675 (2) Acute kidney injury Current Visit: Yes Status: Acute Code(s): N17.9 - ACUTE KIDNEY FAILURE, UNSPECIFIED SNOMED Code(s): 25329011 (3) Hyperkalemia Current Visit: Yes Status: Acute Code(s): E87.5 - HYPERKALEMIA SNOMED Code (s): 80257501 (4) Hypotension Current Visit: Yes Status: Acute Code(s): I95.9 - HYPOTENSION, UNSPECIFIED SNOMED Code(s): 80112394 (5) Rhabdomyolysis Current Visit: Yes Status: Acute Code(s): M62.82 - RHABDOMYOLYSIS SNOMED Code(s): 768266918 (6) Leukocytosis Current Visit: Yes Status: Acute Code(s): D72.829 - ELEVATED WHITE BLOOD CELL COUNT, UNSPECIFIED SNOMED Code(s): 077534253 (7) Presence of stent in coronary artery in patient with coronary artery disease Current Visit: Yes Status: Acute Code(s): I25.10 - ATHSCL HEART DISEASE OF [place] CORONARY ARTERY W/O ANG PCTRS; Z95.5 - PRESENCE OF CORONARY ANGIOPLASTY IMPLANT AND GRAFT SNOMED Code(s): 294943062 (8) Hyperlipemia Current Visit: No Status: Acute Code(s): E78.5 - HYPERLIPIDEMIA, UNSPECIFIED SNOMED Code(s): 68385167 (9) PAD (peripheral artery disease) Current Visit: Yes Status: Acute Code(s): I73.9 - PERIPHERAL VASCULAR DISEASE, UNSPECIFIED SNOMED Code(s): 836676094 Plan: The patient is admitted to the telemetry stepdown unit anticipated greater than 2 midnight stay with acute kidney injury with a creatinine of 10.1 with hyperkalemia 6.8 and metabolic acidosis possibly triggered by acute rhabdomyolysis. Agree with placing Choudhary and continue aggressive IV fluids with guidance of nephrology. Patient initiated on temporizing measures with IV insulin, D50 and sodium bicarb. The patient previously on Lipitor possibly statin induced rhabdomyolsysis superimposed on prerenal hypoperfusion pateint previously on multiple diuretics such as HCTZ, aldactone now held, hold all nephrotoxic medications. We'll monitor strict i/os. Patient noted to have elevated troponin and d-dimer, will order a 2 D echocardiogram/lower extremity venous Dopplers and consult cardiology for further recommendations. Of note CT of the head showed no acute cranial pathology likely metabolic encephalopathy secondary to acute renal failure with uremia superimposed on opiate use. We'll follow-up electrolyte panel/CT abdomen and pelvis. We'll check iron studies Hemoccult. Place patient on DVT prophylaxis with heparin CODE STATUS Full code Discussed plan of care with: Patient/ Tobi Anticipated discharge 3-5 days
[2018-04-22] MEDS ORDERED: NALOXONE 0.4 MG/ML 1 ML VIAL IV STA ×2 (11:32→12:11)
[2018-04-22] MEDS: DEXTROSE IV SCH ×6 (11:36→22:28)
[2018-04-22] MEDS: NACL IV SCH ×6 (11:36→22:28)
[2018-04-22] MEDS: SODIUM BICARB IV SCH ×6 (11:36→22:28)
[2018-04-22 12:26] VITALS: BMI 33.0
--- NOTE | 2018-04-22 12:35 | P.NPCON ---
History of Present Illness - Reason for Consult acute renal failure - History of Present Illness Reason for consultation: Acute kidney injury and hyperkalemia History of present illness: Patient is a 62-year-old female seen in renal consultation for acute kidney injury and hyperkalemia. Patient's baseline creatinine is 1 and is elevated at 10.07 today. Patient was brought to the hospital by her family due to altered mental status. According to the family she was confused this morning. Patient has history of chronic low back pain and is maintained on morphine as well as hydrocodone as an outpatient. Patient's blood pressure was extremely low on admission in the systolic 50s and did respond to Narcan. She also received 2 L of normal saline bolus. Currently maintained on bicarb drip. Patient's potassium was 6.8 on admission. She received IV calcium along with IV insulin, D50 and 2 A of bicarb IV push for hyperkalemia. When Choudhary catheter was inserted about 500 mL of urine was obtained immediately. She now has about 1200 mL of urine in the Choudhary bag. She was taking spironolactone as well as lisinopril as an outpatient. She is again quite confused. She just received second dose of Narcan. No history of diabetes. No family history of renal disease. She is ALLERGIC to NSAIDs. Patient is hypotensive but better since admission. Afebrile. General: The patient appeared well nourished and normally developed. HEENT: Head exam is unremarkable. Neck is without jugular venous distension. LUNGS: Lungs are clear to auscultation and percussion. Breath sounds decreased. HEART: Rate and Rhythm are regular. First and second heart sounds normal. No murmurs, rubs or gallops. ABDOMEN: Abdominal exam reveals normal bowel sounds. Non-tender and non- distended. No evidence of peritonitis. EXTREMITITES: No clubbing, cyanosis, or edema. Past Medical History Past Medical History: Coronary Artery Disease (CAD), GERD/Reflux, GI Bleed, Hyperlipidemia, Hypertension, Myocardial Infarction ([place]), Sleep Apnea/CPAP/BIPAP , Vascular Disorder Additional Past Medical History / Comment(s): Tarlov cyst disease, cyst on spine , ischemic cardiomyopathy, lower GI bleed, gastric ulcer x2, TROY without device , PAD, varicosities. Last Myocardial Infarction Date:: 10/16/15 History of Any Multi-Drug Resistant Organisms: None Reported Past Surgical History: Heart Catheterization With Stent, Hysterectomy, Tonsillectomy Additional Past Surgical History / Comment(s): PCI with stent, abdominal aortagrams/runoffs, bilateral leg stents, L SFA atherectomy/stent, 01/24/18 fempop revascularization/stent and atherectomy Past Anesthesia/Blood Transfusion Reactions: No Reported Reaction Date of Last Stent Placement:: 10/16/15 Past Psychological History: Anxiety, Depression, Panic Disorder Additional Psychological History / Comment(s): Pt resides with her spouse. She uses no assistive device. She does not drive d/t health reasons, her spouse drives. Smoking Status: Former smoker Past Alcohol Use History: None Reported Additional Past Alcohol Use History / Comment(s): Pt started smoking in 1971 and quit in 2015. Past Drug Use History: None Reported - Past Family History Father Family Medical History: Deep Vein Thrombosis (DVT) Mother Family Medical History: Cancer Additional Family Medical History / Comment(s): breast Medications and Allergies Home Medications Medication Instructions Recorded Confirmed Type HYDROcodone/APAP 10-325MG [[place] 1 tab PO Q12HR PRN 10/16/15 04/22/18 History 10-325] Morphine Sulfate [Tomasa] 50 mg PO Q12H 10/16/15 04/22/18 History Nitroglycerin Sl Tabs [Nitrostat] 0.4 mg SUBLINGUAL Q5M PRN #25 tab 10/20/15 Rx Prasugrel [Effient] 10 mg PO DAILY #30 tab 10/20/15 04/22/18 Rx Aspirin 325 mg PO DAILY #30 tab 05/16/16 04/22/18 Rx Atorvastatin [Lipitor] 40 mg PO HS #30 tablet 05/16/16 04/22/18 Rx Hydrochlorothiazide 25 mg PO DAILY #30 tablet 05/16/16 04/22/18 Rx Metoprolol Tartrate [Lopressor] 25 mg PO BID #60 tablet 05/16/16 04/22/18 Rx Lisinopril [Zestril] 20 mg PO BID 09/14/16 04/22/18 History Spironolactone 25 mg PO DAILY 01/23/18 04/22/18 History amLODIPine [Norvasc] 10 mg PO QAM 01/23/18 04/22/18 History PARoxetine HCL [Paxil] 30 mg PO DAILY 04/22/18 04/22/18 History Allergies Allergy/AdvReac Type Severity Reaction Status Date / Time erythromycin base Allergy Unknown Verified 04/22/18 09:28 ibuprofen Allergy Unknown Verified 04/22/18 09:28 NSAIDS (Non-Steroidal Allergy Anaphylaxis Verified 04/22/18 09:28 Anti-Inflamma pregabalin [From Lyrica] Allergy Rash/Hives Verified 04/22/18 09:28 tramadol [From Ultram] Allergy Unknown Verified 04/22/18 09:28 Physical Exam Vitals: Vital Signs Temp Pulse Resp BP Pulse Ox 04/22/18 12:15 16 04/22/18 12:00 108 H 24 94/50 91 L 04/22/18 11:52 109 H 18 107/64 92 L 04/22/18 11:34 14 04/22/18 11:30 103 H 18 101/52 91 L 04/22/18 11:15 107 H 14 78/33 91 L 04/22/18 10:45 107 H 18 90/48 91 L 04/22/18 10:15 105 H 18 99/37 18 L 04/22/18 09:42 105 H 15 113/48 94 L 04/22/18 08:41 18 04/22/18 08:18 98.7 F 70 18 58/34 83 L Intake and Output 04/21/18 04/22/18 04/22/18 22:59 06:59 14:59 Other: Weight 92.986 kg Results - Lab Results Most recent lab results Calcium 8.0 mg/dL (8.4-10.2) L 04/22/18 08:30 Magnesium 1.7 mg/dL (1.6-2.3) 04/22/18 08:30 04/22/18 08:30 04/22/18 08:30 Assessment and Plan Plan: Assessment: 1. Acute kidney injury secondary to ATN secondary to hypotension and urinary retention. Creatinine 10.07 today. 2. Hyperkalemia secondary to acute kidney injury, metabolic acidosis, use of lisinopril and Aldactone. Also component of urinary retention. 3. Hyponatremia secondary to acute kidney injury. 4. Metabolic acidosis secondary to acute kidney injury. 5. Altered mental status related to use of opioids, particularly morphine in the setting of acute kidney injury. Plan: Maintain isotonic bicarbonate drip to be run at 125 mL an hour. Repeat potassium level at 2 PM. Maintain Choudhary catheter. Strict I's and O's. Check renal ultrasound. Avoid nephrotoxins. Diuretics, Lisinopril and Aldactone held. Continue to monitor renal function and urine output closely. Thank you for the consultation. I will continue to follow the patient with you during her hospital stay.
--- NOTE | 2018-04-22 13:20 | CT ---
EXAMINATION TYPE: CT abdomen pelvis wo con DATE OF EXAM: 04/22/2018 COMPARISON: 02/15/2015 HISTORY: Kidney failure, confusion CT DLP: 795.9 mGycm Automated exposure control for dose reduction was used. TECHNIQUE: Helical acquisition of images was performed from the lung bases through the pelvis. FINDINGS: Exam severely limited by motion artifact. LUNG BASES: Subsegmental consolidation at both lung bases. LIVER/GB: Fatty infiltration of the liver suspected. Correlate for hepatic steatosis. Gallbladder monique ears to be collapsed contains some areas of hyperdensity which could represent artifact. PANCREAS: No significant abnormality is seen. SPLEEN: No significant abnormality is seen. ADRENALS: Stable subcentimeter left adrenal nodule likely related to adenoma. KIDNEYS: Punctate right renal calcification measuring 2 mm. ADENOPATHY: None visualized. OSSEOUS STRUCTURES: Multilevel hypertrophic and degenerative disc disease noted. BOWEL: No significant abnormality is seen. OTHER: Air in the bladder likely related to Choudhary catheter insertion. Tarlov cyst within the sacrum a re stable. IMPRESSION: 1. Nonobstructing punctate right renal calculus. 2. Correlate for hepatic steatosis. 3. Nonspecific bowel gas pattern. Retained fecal debris throughout the colon correlate for constipati on 4. Limited exam due to motion artifact.
[2018-04-22 13:58] LABS: Glucose,Whole Blood 132 mg/dL (75-99)
--- NOTE | 2018-04-22 15:06 | US ---
EXAMINATION TYPE: US venous doppler duplex LE BI DATE OF EXAM: 04/22/2018 2:29 PM COMPARISON: NONE CLINICAL HISTORY: Pain/rule out DVT. Bilateral leg pain SIDE PERFORMED: Bilateral TECHNIQUE: The lower extremity deep venous system is examined utilizing real time linear array sonog kati with graded compression, doppler sonography and color-flow sonography. VESSELS IMAGED: External Iliac Vein (EIV) Common Femoral Vein Deep Femoral Vein Greater Saphenous Vein * Femoral Vein Popliteal Vein Small Saphenous Vein * Proximal Calf Veins (* superficial vessels) Grayscale, color doppler, spectral doppler imaging performed of the deep veins of the lower extremiti es. Right Leg: Appears negative for DVT Left Leg: Appears negative for DVT There is normal flow, compressibility, vascular waveforms. IMPRESSION: No evident deep venous arthrosis at or above the knees bilaterally. Follow-up as arianna cated.
--- NOTE | 2018-04-22 15:31 | US ---
EXAMINATION TYPE: US kidneys/renal and bladder DATE OF EXAM: 04/22/2018 COMPARISON: CT same date CLINICAL HISTORY: umair. UMAIR EXAM MEASUREMENTS: Right Kidney: 10.0 x 4.7 x 5.0 cm Left Kidney: 9.9 x 4.7 x 4.7 cm Difficult and limited study due to patient body habitus and rib shadowing Right Kidney: 0.3cm echogenic focus mid pole is noted at the medullary aspect Left Kidney: no hydronephrosis or masses seen Bladder: not fully distended, souza catheter There is no evidence for hydronephrosis at this point in time. No masses are identified. Cortical m edullary differentiation is maintained. There is no ascites. IMPRESSION: Possible vascular calcification medullary aspect right kidney mid pole, difficult to exclude nonobstr uctive calculus. No hydronephrosis.
--- NOTE | 2018-04-22 16:09 | P.CNPUL ---
History of Present Illness Consult date: 04/22/18 Requesting physician: Braydon Lynch Reason for consult: other (ICU management, patient presented with acute kidney injury and hyperkalemia. As well as mental status changes) Chief complaint: Mental status change History of present illness: This is a 62-year-old female with history of coronary artery disease, OR, previous stents, history of GERD, history of upper GI bleeding, hypertension, obstructive sleep apnea syndrome, and no previous history of documented kidney disease. Patient had previous documented peripheral vessel occlusive disease involving lower extremities, and she is also known to have history of ischemic cardiomyopathy. Patient has been doing quite well according to the , yesterday she was noted to be quite sleepy, and she slept most of the day. Early this morning, the patient was noted to be confused. was quite concerned, she is known to have history of tonic back pain, and she is mostly on morphine as well as hydrocodone on outpatient basis. She does not take any nonsteroidal anti-inflammatory drugs. Patient was brought into the ER with the chief complaint of confusion and mental status change. She was found to have hypotension with blood pressure systolic in the 50s. Patient was given Narcan, she was also given fluid boluses about 2 L. Her kidney functioning came back quite abnormal with creatinine of chest over 10, and her potassium was 6.8. Patient did receive calcium, IV insulin, D50, 2 A of bicarb, and she was placed on a bicarb drip. Patient was admitted to the ICU, and this consult was initiated. Choudhary catheter was placed and it showed good urine output, roughly about 500 mL were noted in the Choudhary catheter bag. Normally patient is on diuretics including Aldactone, she is also on lisinopril for hypertension and underlying coronary artery disease. No previous history of kidney injury. No previous history of documented kidney disease. Ultrasound of the kidneys showed no evidence of obstructive uropathy. She was seen by nephrology in consultation, and felt that her acute kidney injury is secondary to acute tubular necrosis from hypotension. And her hyperkalemia is related to her acute kidney injury worsened by the fact that the patient is on lisinopril and Aldactone. And it was felt that her mental status is likely related to metabolic encephalopathy, could also be related to the fact that the patient is chronically on opioids particularly morphine. Her CT of the brain came back negative. During my evaluation, the patient seemed confused, she looked clinically dehydrated, she denied any headache, no blurred vision, no dizziness. She felt generally weak. Denied any nausea vomiting abdominal pain , she has chronic low back pain. Denies any melena or hematemesis, no dysuria and no frequency no urgency. Patient was noted to have borderline blood pressure, was not on any pressors at the time she presented to the ICU. Patient was getting more fluid boluses shortly after I saw her. Review of Systems 14 point review of systems were obtained from the , please refer to pertinent positives in HPI, patient is confused to give a detailed review of system. 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 , varicose veins, no cpap used, bleeding ulcer x2, Last Myocardial Infarction Date:: 10/16/15 History of Any Multi-Drug Resistant Organisms: None Reported Past Surgical History: Heart Catheterization With Stent, Hysterectomy, Tonsillectomy Additional Past Surgical History / Comment(s): Multiple D & C's.,ABDOMINAL AORTAGRAM, PERIPHERAL ANGIOGRAM, one cardiac stents, stents in risa legs(total 6) Past Anesthesia/Blood Transfusion Reactions: No Reported Reaction Date of Last Stent Placement:: 10/16/15 Past Psychological History: Anxiety, Depression, Panic Disorder Smoking Status: Former smoker Past Alcohol Use History: None Reported Past Drug Use History: None Reported - Past Family History Father Family Medical History: Deep Vein Thrombosis (DVT) Mother Family Medical History: Cancer Additional Family Medical History / Comment(s): breast Medications and Allergies Home Medications Medication Instructions Recorded Confirmed Type HYDROcodone/APAP 10-325MG [Lester 1 tab PO Q12HR PRN 10/16/15 04/22/18 History 10-325] Morphine Sulfate [Tomasa] 50 mg PO Q12H 10/16/15 04/22/18 History Nitroglycerin Sl Tabs [Nitrostat] 0.4 mg SUBLINGUAL Q5M PRN #25 tab 10/20/15 Rx Prasugrel [Effient] 10 mg PO DAILY #30 tab 10/20/15 04/22/18 Rx Aspirin 325 mg PO DAILY #30 tab 02/15/17 01/22/19 Rx Atorvastatin [Lipitor] 40 mg PO HS #30 tablet 05/16/16 04/22/18 Rx Hydrochlorothiazide 25 mg PO DAILY #30 tablet 05/16/16 04/22/18 Rx Metoprolol Tartrate [Lopressor] 25 mg PO BID #60 tablet 05/16/16 04/22/18 Rx Lisinopril [Zestril] 20 mg PO BID 09/14/16 04/22/18 History Spironolactone 25 mg PO DAILY 01/23/18 04/22/18 History amLODIPine [Norvasc] 10 mg PO QAM 01/23/18 04/22/18 History PARoxetine HCL [Paxil] 30 mg PO DAILY 04/22/18 04/22/18 History Allergies Allergy/AdvReac Type Severity Reaction Status Date / Time erythromycin base Allergy Unknown Verified 04/22/18 09:28 ibuprofen Allergy Unknown Verified 04/22/18 09:28 NSAIDS (Non-Steroidal Allergy Anaphylaxis Verified 04/22/18 09:28 Anti-Inflamma pregabalin [From Lyrica] Allergy Rash/Hives Verified 04/22/18 09:28 tramadol [From Ultram] Allergy Unknown Verified 04/22/18 09:28 Physical Exam Vitals: Vital Signs Temp Pulse Resp BP Pulse Ox 04/22/18 13:45 105 H 18 91/48 04/22/18 13:15 103 H 14 84/44 87 L 04/22/18 13:00 103 H 16 117/56 82 L 04/22/18 12:30 105 H 63 H 96/59 91 L 04/22/18 12:15 16 04/22/18 12:00 108 H 24 94/50 91 L 04/22/18 11:52 109 H 18 107/64 92 L 04/22/18 11:34 14 04/22/18 11:30 103 H 18 101/52 91 L 04/22/18 11:15 107 H 14 78/33 91 L 04/22/18 10:45 107 H 18 90/48 91 L 04/22/18 10:15 105 H 18 99/37 18 L 04/22/18 09:42 105 H 15 113/48 94 L 04/22/18 08:41 18 04/22/18 08:18 98.7 F 70 18 58/34 83 L Intake and Output 04/22/18 04/22/18 04/22/18 06:59 14:59 22:59 Intake Total 125 1125 Output Total 200 325 Balance -75 800 Intake: IV 125 1125 Dextrose 5%-0.9% NaCl 1, 125 125 000 ml @ 125 mls/hr IV . Q9H12M TAYA with Sodium Bicarb (1 Meq/ml) 150 ml Rx#:[id number] Sodium Chloride 0.9% 1, 1000 000 ml @ 999 mls/hr IV . Q1H1M ONE Rx#:[id number] Output: Urine 200 325 Other: Weight 92.986 kg Physical Exam: Revealed a 62-year-old female in no distress. Confused, conversant, pleasant, looks clinically dehydrated. Head: Atraumatic, normocephalic. HEENT:[Neck is supple.] [No neck masses.] [No thyromegaly.] [No JVD.] Dry mucous membranes noted, PERRLA, EOMI, no icterus. Chest: [Clear throughout, no crackles, no rhonchi, no wheezes.] Cardiac Exam: [Normal S1 and S2, no S3 gallop, no murmur.] Abdomen: [Soft, nontender, no megaly, no rebound, no guarding, normal bowel sounds.] Extremities: [No clubbing, no edema, no cyanosis.] Good pulses noted bilaterally in upper and lower extremities. Neurological Exam: Awake, but confused and disoriented, knew her family members at bedside. Recognized that she was actually in the hospital. Skin: No rashes. Musculoskeletal: Good muscle strength bilaterally. Lymphatics: No lymphadenopathy. Psychiatric: Awake, blunt affect, confused, slightly disoriented, mental status is abnormal. Results - Laboratory Findings CBC and BMP: 04/22/18 08:30 04/22/18 08:30 PT/INR, D-dimer PT 10.0 sec (9.0-12.0) 04/22/18 08:30 INR 0.9 (<1.2) 04/22/18 08:30 D-Dimer 0.75 mg/L FEU (<0.60) H 04/22/18 08:30 Abnormal lab findings: Abnormal Labs 04/22/18 04/22/18 04/22/18 08:29 08:30 08:30 WBC 12.5 H RBC 3.38 L Hgb 9.8 L Hct 32.1 L MCHC 30.4 L Neutrophils # (Manual) 10.88 H Lymphocytes # (Manual) 0.63 L D-Dimer Sodium Potassium Chloride Carbon Dioxide BUN Creatinine Glucose POC Glucose (mg/dL) 136 H Calcium AST Total Creatine Kinase 2216 H* CK-MB (CK-2) 30.9 H Troponin I 0.139 H* Urine Appearance Urine Protein Urine Blood Urine WBC Amorphous Sediment Urine Bacteria Urine Mucus Urine Opiates Screen 04/22/18 04/22/18 04/22/18 08:30 08:30 10:14 WBC RBC Hgb Hct MCHC Neutrophils # (Manual) Lymphocytes # (Manual) D-Dimer 0.75 H Sodium 133 L Potassium 6.8 H* Chloride 96 L Carbon Dioxide 17 L BUN 132 H* Creatinine 10.07 H* Glucose 136 H POC Glucose (mg/dL) Calcium 8.0 L AST 52 H Total Creatine Kinase CK-MB (CK-2) Troponin I Urine Appearance Cloudy H Urine Protein 1+ H Urine Blood Moderate H Urine WBC 16 H Amorphous Sediment Rare H Urine Bacteria Rare H Urine Mucus Rare H Urine Opiates Screen Detected H 04/22/18 13:55 WBC RBC Hgb Hct MCHC Neutrophils # (Manual) Lymphocytes # (Manual) D-Dimer Sodium Potassium Chloride Carbon Dioxide BUN Creatinine Glucose POC Glucose (mg/dL) 132 H Calcium AST Total Creatine Kinase CK-MB (CK-2) Troponin I Urine Appearance Urine Protein Urine Blood Urine WBC Amorphous Sediment Urine Bacteria Urine Mucus Urine Opiates Screen - Diagnostic Findings Chest x-ray: image reviewed (No acute process noted.) Assessment and Plan Assessment: Impression: 1 altered mental status, most likely secondary to metabolic encephalopathy related to her acute kidney injury and compounded by the fact that the patient has been on narcotics. 2 chronic pain syndrome, patient is on morphine and other narcotics for pain control. 3 acute hyperkalemia secondary to acute kidney injury and secondary to lisinopril and Aldactone. 4 history of coronary artery disease and previous stents placement, history of ischemic cardiomyopathy. 5 acute metabolic acidosis secondary to acute kidney injury and acute renal failure. 6 history of peripheral vessel occlusive disease involving lower extremities 7 history of hypertension, 8 history of obstructive sleep apnea syndrome 9 history of previous OR and stents placement 10 history of Tarlov cyst disease and chronic low back pain. 11 acute rhabdomyolysis, should improve with hydration which was already initiated upon arrival to the ER. Recommendation: Patient was seen and evaluated in the ICU, she is already receiving fluids, receiving multiple treatments to correct her hyperkalemia, her Aldactone and lisinopril are presently on hold, she already received bicarbonate, D50, insulin, and she is on a bicarb drip at present. We'll hold any nephrotoxic agents for now, continue to monitor her I's and O's closely in the ICU, monitor renal profile and a daily basis, ultrasound of the kidneys was done and reviewed basically no evidence of obstructive uropathy. Cautious use of narcotics for pain control as it may affect her mental status worse. Continue GI and DVT prophylaxis. Will follow closely. Discussed her condition with her family including and other family members at bedside. Prognosis is definitely guarded at this point. Time with Patient: Greater than 30
--- NOTE | 2018-04-22 17:03 | ECHOF ---
Referral Reason:elevated troponin MEASUREMENTS -------- HEIGHT: 167.6 cm WEIGHT: 93.0 kg BP: 94/50 IVSd: 1.6 cm (0.6 - 1.1) LVIDd: 3.2 cm (3.9 - 5.3) LVPWd: 1.4 cm (0.6 - 1.1) IVSs: 1.9 cm LVIDs: 2.1 cm LVPWs: 1.8 cm LA Diam: 3.8 cm (2.7 - 3.8) RVIDd: 3.5 cm (< 3.3) LAESV Index (A-L): 23.31 ml/m Ao Diam: 3.5 cm (2.0 - 3.7) AV Cusp: 2.4 cm (1.5 - 2.6) EPSS: 0.7 cm MV E Oswaldo: 1.29 m/s MV DecT: 146 ms MV A Oswaldo: 1.02 m/s MV E/A Ratio: 1.26 AV maxP.13 mmHg AV meanP.04 mmHg RAP: 5.00 mmHg RVSP: 48.70 mmHg MV EF SLOPE: 68.06 mm/s (70 - 150) MV EXCURSION: 18.05 mm (> 18.000) FINDINGS -------- Resting tachycardia (HR>100bpm). This was a technically adequate study. The left ventricular size is normal. There is moderate concentric left ventricular hypertrophy. O verall left ventricular systolic function is normal with, an EF between 60 - 65 %. The right ventricle is mildly enlarged. Normal LA size by volume 22+/-6 ml/m2. The right atrium is normal in size. Aortic valve is trileaflet and is mildly thickened. The mitral valve is normal. Mild tricuspid regurgitation present. There is moderate pulmonary hypertension. The right ventric ular systolic pressure, as measured by Doppler, is 48.70mmHg. Trace/mild (physiologic) pulmonic regurgitation. The aortic root size is normal. IVC Not well visulized. There is no pericardial effusion. CONCLUSIONS -------- 1. Resting tachycardia (HR>100bpm). 2. This was a technically adequate study. 3. The left ventricular size is normal. 4. There is moderate concentric left ventricular hypertrophy. 5. Overall left ventricular systolic function is normal with, an EF between 60 - 65 %. 6. The right ventricle is mildly enlarged. 7. Normal LA size by volume 22+/-6 ml/m2. 8. The right atrium is normal in size. 9. Aortic valve is trileaflet and is mildly thickened. 10. The mitral valve is normal. 11. Mild tricuspid regurgitation present. 12. There is moderate pulmonary hypertension. 13. The right ventricular systolic pressure, as measured by Doppler, is 48.70mmHg. 14. Trace/mild (physiologic) pulmonic regurgitation. 15. The aortic root size is normal. 16. IVC Not well visulized. 17. There is no pericardial effusion. SENIOR ACCOUNTING ANALYST: Farzana Rose RDCS
[2018-04-22] MEDS: HEPARIN SODIUM,PORCINE 5,000 UNIT/ML 1 ML VIAL SQ SCH (17:13)
[2018-04-22] MEDS ORDERED: NOREPINEPHRINE 4 MG in SODIUM CHLORIDE 0.9% 250 ML IV SCH (17:45)
[2018-04-22] MEDS: SODIUM CHLORIDE 0.9% 1,000 ML IV SCH ×2 (18:03→22:27)
[2018-04-22] MEDS: MAGNESIUM SULFATE-D5W PMX 1 GM in DEXTROSE/WATER 1 100ML.BAG IVPB SCH ×2 (21:00→22:35)
[2018-04-22] MEDS: FUROSEMIDE 10 MG/ML 4 ML VIAL ONE ×2 (21:00→22:33)
--- NOTE | 2018-04-22 21:10 | XR ---
EXAMINATION: XR chest 1V DATE AND TIME: 04/22/2018 8:53 PM CLINICAL INDICATION: PHH; shortness of breath TECHNIQUE: Portable AP upright COMPARISON: 04/22/2018 at 9:03 AM FINDINGS: EKG leads. There is moderate silhouetting of the pulmonary vasculature bilaterally by a fine reticular pattern o f increased attenuation symmetrically within the lungs. No major atelectasis or consolidative opacity . The pleural spaces are negative. The cardiac silhouette is moderately enlarged, unchanged. The skeletal structures and soft tissues are negative for acute findings. IMPRESSION: Radiographic findings consistent with mild/moderate interstitial phase cardiogenic pulmonary edema.
[2018-04-22] MEDS ORDERED: Magnesium Replacement Protocol 1 EACH MISC MISCELLANE PRN (21:21)
[2018-04-22] MEDS ORDERED: FUROSEMIDE 10 MG/ML 4 ML VIAL IV STA (21:35)
[2018-04-22 22:52] LABS: Calcium 8.2 mg/dL (8.4-10.2); Potassium 5.6 mmol/L (3.5-5.1)
[2018-04-23] MEDS ORDERED: ACETAMINOPHEN IV (For NPO) 1,000 MG in EMPTY BAG 1 BAG IVPB ONE (01:30)
[2018-04-23] MEDS ORDERED: VANCOMYCIN IV PER PHARMACY 1 EACH MISC MISCELLANE PRN (01:36)
[2018-04-23] MEDS: HEPARIN SODIUM,PORCINE 5,000 UNIT/ML 1 ML VIAL SQ SCH ×4 (01:42→23:25)
[2018-04-23] MEDS ORDERED: VANCOMYCIN 1,250 MG in SODIUM CHLORIDE 0.9% 250 ML IVPB ONE (02:00)
[2018-04-23] MEDS ORDERED: PROPOFOL 10 MG/ML 20 ML VIAL IV ONE (02:05)
[2018-04-23] MEDS ORDERED: ROCURONIUM BROMIDE 10 MG/ML 10 ML VIAL IV ONE (02:05)
[2018-04-23] MEDS: PIPERACILLIN-TAZOBACTAM 3.375 GM in SODIUM CHLORIDE 0.9% 100 ML IVPB SCH ×3 (02:13→21:39)
[2018-04-23] MEDS: SODIUM CHLORIDE 0.9% 1,000 ML IV SCH ×4 (02:22→19:13)
[2018-04-23 03:00] LABS: Iron Saturation 11.67 (12.00-45.00)
[2018-04-23 05:41] LABS: Magnesium 2.1 mg/dL (1.6-2.3)
[2018-04-23 06:19] LABS: Albumin 2.9 g/dL (3.5-5.0); Calcium 8.1 mg/dL (8.4-10.2); Potassium 5.2 mmol/L (3.5-5.1); Total Bilirubin 0.6 mg/dL (0.2-1.3); Total Protein 5.5 g/dL (6.3-8.2)
--- NOTE | 2018-04-23 08:09 | P.CRDCN ---
History of Present Illness Consult date: 04/23/18 Chief complaint: Change in mental status History of present illness: This is a pleasant 62-year-old female patient who sees Dr. Sweet in the office on a regular basis with a past medical history significant for coronary artery disease and status post stenting of the right coronary artery in 2016 peripheral vascular disease involving the lower extremities and the patient is status post bilateral femoral arteries angioplasty, hypertension, and dyslipidemia, was brought by her to the emergency room with a change in mental status. The patient was in her usual state of health until Saturday when her noted that the patient was quite sleepy and she slept most of the day. Then her noted that the patient was confused and he was quite concerned about her and because of that he brought her to the emergency room. No indication of any symptoms of chest pain or chest discomfort, shortness of breath, or syncope. When the patient was brought to the emergency room she was found to be hypotensive with a systolic blood pressure in the 60s. Beside that the patient was noted to have acute renal failure with a creatinine of 10. Also she was found to have hyperkalemia with 6.8. Immediately the patient received fluid resuscitation and she received 2 L of fluid. Beside that she was given calcium gluconate for the hyperkalemia as well as she was given insulin and D50 as well as bicarb. After the patient was admitted to the intensive care unit last night and during her fluid dissociation she did go into flash pulmonary edema which was responded well to Lasix. The patient was seen and evaluated by the nephrology service and it was felt that her acute renal failure is related to hypotension and tubular necrosis. The EKG showed sinus rhythm with Q wave in the inferior leads indicating old inferior FL as well as nonspecific changes in the lateral leads. 2 sets of troponin were checked and came in to be slightly abnormal. And below 1. She underwent an echocardiogram during this admission and that revealed normal LV function with mild MR and mild TR and moderate pulmonary hypertension. The patient had no symptoms of chest pain or chest discomfort or shortness of breath according to her . 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 , varicose veins, no cpap used, bleeding ulcer x2, Last Myocardial Infarction Date:: 10/16/15 History of Any Multi-Drug Resistant Organisms: None Reported Past Surgical History: Heart Catheterization With Stent, Hysterectomy, Tonsillectomy Additional Past Surgical History / Comment(s): Multiple D & C's.,ABDOMINAL AORTAGRAM, PERIPHERAL ANGIOGRAM, one cardiac stents, stents in risa legs(total 6) Past Anesthesia/Blood Transfusion Reactions: No Reported Reaction Date of Last Stent Placement:: 10/16/15 Past Psychological History: Anxiety, Depression, Panic Disorder Smoking Status: Former smoker Past Alcohol Use History: None Reported Past Drug Use History: None Reported - Past Family History Father Family Medical History: Deep Vein Thrombosis (DVT) Mother Family Medical History: Cancer Additional Family Medical History / Comment(s): breast Medications and Allergies Home Medications Medication Instructions Recorded Confirmed Type HYDROcodone/APAP 10-325MG [Leeds 1 tab PO Q12HR PRN 10/16/15 04/22/18 History 10-325] Morphine Sulfate [Tomasa] 50 mg PO Q12H 10/16/15 04/22/18 History Nitroglycerin Sl Tabs [Nitrostat] 0.4 mg SUBLINGUAL Q5M PRN #25 tab 10/20/15 Rx Prasugrel [Effient] 10 mg PO DAILY #30 tab 10/20/15 04/22/18 Rx Aspirin 325 mg PO DAILY #30 tab 05/16/16 04/22/18 Rx Atorvastatin [Lipitor] 40 mg PO HS #30 tablet 05/16/16 04/22/18 Rx Hydrochlorothiazide 25 mg PO DAILY #30 tablet 05/16/16 04/22/18 Rx Metoprolol Tartrate [Lopressor] 25 mg PO BID #60 tablet 05/16/16 04/22/18 Rx Lisinopril [Zestril] 20 mg PO BID 09/14/16 04/22/18 History Spironolactone 25 mg PO DAILY 01/23/18 04/22/18 History amLODIPine [Norvasc] 10 mg PO QAM 01/23/18 04/22/18 History PARoxetine HCL [Paxil] 30 mg PO DAILY 04/22/18 04/22/18 History Allergies Allergy/AdvReac Type Severity Reaction Status Date / Time erythromycin base Allergy Unknown Verified 01/22/19 09:28 ibuprofen Allergy Unknown Verified 04/22/18 09:28 NSAIDS (Non-Steroidal Allergy Anaphylaxis Verified 04/22/18 09:28 Anti-Inflamma pregabalin [From Lyrica] Allergy Rash/Hives Verified 04/22/18 09:28 tramadol [From Ultram] Allergy Unknown Verified 04/22/18 09:28 Physical Exam Vitals: Vital Signs Temp Pulse Pulse Resp BP BP Pulse Ox 04/23/18 07:00 92 13 90/54 94 L 04/23/18 06:00 99.0 F 105 H 27 H 92/47 97 04/23/18 05:15 82 16 85/45 97 04/23/18 05:00 84 18 79/39 97 04/23/18 04:45 83 19 81/45 97 04/23/18 04:30 76 15 88/43 96 04/23/18 04:15 87 19 87/45 96 04/23/18 04:00 146 H 16 80/58 95 04/23/18 03:00 100.8 F H 101 H 16 100/40 90 L 04/23/18 02:15 154 H 19 80/50 94 L 04/23/18 02:00 100.8 F H 152 H 17 98/54 94 L 04/23/18 01:45 101 H 18 98/54 95 04/23/18 01:30 99 25 H 102/47 95 04/23/18 01:15 98 22 102/47 93 L 04/23/18 01:00 101 H 20 102/52 95 04/23/18 00:45 100 25 H 102/52 94 L 04/23/18 00:30 149 H 27 H 85/32 96 04/23/18 00:15 112 H 24 85/32 96 04/23/18 00:00 103 F H 97 16 97/74 97 04/22/18 23:45 99 24 97/74 96 04/22/18 23:30 144 H 18 90/40 96 04/22/18 23:15 152 H 16 90/40 96 04/22/18 23:00 151 H 19 96/76 94 L 04/22/18 22:45 98 26 H 96/76 95 04/22/18 22:42 87 16 76/59 96 04/22/18 22:30 151 H 25 H 97/65 96 01/22/19 22:15 163 H 19 97/65 95 04/22/18 22:00 100 16 108/57 96 04/22/18 21:30 109 H 23 88/48 96 04/22/18 21:00 93 18 95/53 93 L 04/22/18 20:30 79 25 H 80/33 83 L 04/22/18 20:00 99.4 F 90 16 78/61 91 L 04/22/18 19:15 89 19 72/44 91 L 04/22/18 19:00 82 13 89/47 93 L 04/22/18 18:45 92 18 89/47 92 L 04/22/18 18:30 93 11 L 77/54 92 L 04/22/18 18:15 90 20 77/54 91 L 04/22/18 18:00 80 22 91/79 92 L 04/22/18 17:45 74 18 91/79 90 L 04/22/18 17:30 90 14 80/50 90 L 04/22/18 17:15 94 21 80/50 90 L 04/22/18 17:00 103 H 9 L 78/49 88 L 04/22/18 16:45 96 13 78/49 93 L 04/22/18 16:30 94 15 92/51 92 L 04/22/18 16:15 99 9 L 92/51 91 L 04/22/18 16:00 98.3 F 102 H 22 87/45 91 L 04/22/18 15:45 101 H 15 87/45 89 L 04/22/18 15:30 99 12 103/58 91 L 04/22/18 15:15 101 H 21 98/48 91 L 04/22/18 14:15 98 14 79/52 90 L 04/22/18 14:00 98.4 F 103 H 11 L 104/46 90 L 04/22/18 13:45 105 H 18 91/48 04/22/18 13:15 103 H 14 84/44 87 L 04/22/18 13:00 103 H 16 117/56 82 L 04/22/18 12:30 105 H 63 H 96/59 91 L 04/22/18 12:15 16 04/22/18 12:00 108 H 24 94/50 91 L 04/22/18 11:52 109 H 18 107/64 92 L 04/22/18 11:34 14 04/22/18 11:30 103 H 18 101/52 91 L 04/22/18 11:15 107 H 14 78/33 91 L 04/22/18 10:45 107 H 18 90/48 91 L 04/22/18 10:15 105 H 18 99/37 18 L 04/22/18 09:42 105 H 15 113/48 94 L 04/22/18 08:41 18 04/22/18 08:18 98.7 F 70 18 58/34 83 L Intake and Output 04/22/18 04/23/18 04/23/18 22:59 06:59 14:59 Intake Total 2485 957.687 50 Output Total 2075 2275 300 Balance 410 -1317.313 -250 Intake: IV 2385 850 50 ACETAMINOPHEN IV (For NPO 100 ) 1,000 mg In Empty Bag 1 bag @ 400 mls/hr IVPB ONCE ONE Rx#:[id number] Dextrose 5%-0.9% NaCl 1, 575 400 50 000 ml @ 50 mls/hr IV . Q23H [facility] with Sodium Bicarb (1 Meq/ml) 150 ml Rx#:[id number] Piperacillin-Tazobactam 3 100 .375 gm In Sodium Chloride 0.9% 100 ml @ 25 mls/hr IVPB Q8H [facility] Rx#: [id number] Sodium Chloride 0.9% 1, 610 0 000 ml @ 200 mls/hr IV . Q5H [facility] Rx#:[id number] Sodium Chloride 0.9% 1, 1200 000 ml @ 999 mls/hr IV . Q1H1M ONE Rx#:[id number] Vancomycin 1,250 mg In 250 Sodium Chloride 0.9% 250 ml @ 125 mls/hr IVPB ONCE ONE Rx#:[id number] Intake, IV Titration 100 107.687 Amount Magnesium Sulfate-D5w Pmx 100 100 1 gm In Dextrose/Water 1 100ml.bag @ 100 mls/hr IVPB Q1H [facility] Rx#: [id number] Norepinephrine 4 mg In 7.687 Sodium Chloride 0.9% 250 ml @ Titrate IV .Q0M [facility] Rx#:[id number] Output: Urine 2072 2275 300 Other: Voiding Method Indwelling Catheter Indwelling Catheter Weight 96 kg - Constitutional General appearance: no acute distress - Respiratory Respiratory: bilateral: diminished - Cardiovascular Rhythm: regular Heart sounds: normal: S1, S2 Results 04/22/18 08:30 04/23/18 04:30 Cardiac Enzymes 04/22/18 04/22/18 04/22/18 Range/Units 08:30 08:30 15:35 AST 52 H (14-36) U/L CK-MB (CK-2) 30.9 H (0.0-2.4) ng/mL Troponin I 0.139 H* 0.252 H* (0.000-0.034) ng/mL 04/22/18 04/23/18 Range/Units 20:13 04:30 AST 67 H (14-36) U/L CK-MB (CK-2) (0.0-2.4) ng/mL Troponin I 0.322 H* (0.000-0.034) ng/mL Coagulation 04/22/18 Range/Units 08:30 PT 10.0 (9.0-12.0) sec APTT 22.8 (22.0-30.0) sec Lipids 04/23/18 Range/Units 04:30 Triglycerides 113 (<150) mg/dL Cholesterol 110 (<200) mg/dL HDL Cholesterol 31 L (40-60) mg/dL CBC 04/22/18 Range/Units 08:30 WBC 12.5 H (3.8-10.6) k/uL RBC 3.38 L (3.80-5.40) m/uL Hgb 9.8 L (11.4-16.0) gm/dL Hct 32.1 L (34.0-46.0) % Plt Count 236 (150-450) k/uL Comprehensive Metabolic Panel 04/22/18 04/22/18 04/22/18 Range/Units 08:30 15:35 18:45 Sodium 133 L (137-145) mmol/L Potassium 6.8 H* 5.6 H 5.5 H (3.5-5.1) mmol/L Chloride 96 L (98-107) mmol/L Carbon Dioxide 17 L (22-30) mmol/L BUN 132 H* (7-17) mg/dL Creatinine 10.07 H* (0.52-1.04) mg/dL Glucose 136 H (74-99) mg/dL Calcium 8.0 L (8.4-10.2) mg/dL AST 52 H (14-36) U/L ALT 31 (9-52) U/L Alkaline Phosphatase 73 (38-126) U/L Total Protein 6.8 (6.3-8.2) g/dL Albumin 3.8 (3.5-5.0) g/dL 04/22/18 04/23/18 Range/Units 22:29 04:30 Sodium 141 145 (137-145) mmol/L Potassium 5.6 H 5.2 H (3.5-5.1) mmol/L Chloride 110 H 112 H (98-107) mmol/L Carbon Dioxide 23 26 (22-30) mmol/L BUN 98 H 87 H (7-17) mg/dL Creatinine 3.73 H 2.95 H (0.52-1.04) mg/dL Glucose 139 H 175 H (74-99) mg/dL Calcium 8.2 L 8.1 L (8.4-10.2) mg/dL AST 67 H (14-36) U/L ALT 43 (9-52) U/L Alkaline Phosphatase 63 (38-126) U/L Total Protein 5.5 L (6.3-8.2) g/dL Albumin 2.9 L (3.5-5.0) g/dL Current Medications Generic Name Dose Route Start Last Admin Trade Name Freq PRN Reason Stop Dose Admin Heparin Sodium (Porcine) 5,000 unit 04/22/18 16:00 04/23/18 01:42 Heparin SQ 5,000 unit Q8HR [facility]AYA Administration Sodium Bicarbonate 150 ml/ 1,150 mls @ 50 mls/hr 04/22/18 10:45 04/22/18 22: 28 Dextrose/Sodium Chloride IV 50 mls/hr .Q23H [facility]AYA Administration Sodium Chloride 1,000 mls @ 200 mls/hr 04/22/18 17:30 04/23/18 02:22 Saline 0.9% IV 200 mls/hr .Q5H [facility] Administration Norepinephrine Bitartrate 4 mg 250 mls @ 0 mls/hr 04/22/18 17:45 04/23/18 05: 56 / Sodium Chloride IV 5 mcg/min .Q0M [facility]A 18.75 mls/hr Titration Protocol Titrate Piperacillin Sod/Tazobactam 100 mls @ 25 mls/hr 04/23/18 02:00 04/23/18 02:13 Sod 3.375 gm/ Sodium Chloride IVPB 25 mls/hr Q8H [facility] Administration Miscellaneous Information 1 each 04/22/18 21:21 Magnesium Per Protocol MISCELLANE DAILY PRN Per Protocol Protocol Miscellaneous Information 1 each 04/23/18 01:36 Pharmacy To Dose Iv Vancomycin MISCELLANE DIRECTED PRN Per Protocol Ondansetron HCl 4 mg 04/22/18 11:07 Zofran IVP Q4HR PRN Nausea And Vomiting Intake and Output 04/22/18 04/23/18 04/23/18 22:59 06:59 14:59 Intake Total 2485 957.687 50 Output Total 2075 2275 300 Balance 410 -1317.313 -250 Intake: IV 2385 850 50 ACETAMINOPHEN IV (For NPO 100 ) 1,000 mg In Empty Bag 1 bag @ 400 mls/hr IVPB ONCE ONE Rx#:[id number] Dextrose 5%-0.9% NaCl 1, 575 400 50 000 ml @ 50 mls/hr IV . Q23H [facility] with Sodium Bicarb (1 Meq/ml) 150 ml Rx#:[id number] Piperacillin-Tazobactam 3 100 .375 gm In Sodium Chloride 0.9% 100 ml @ 25 mls/hr IVPB Q8H [facility] Rx#: [id number] Sodium Chloride 0.9% 1, 610 0 000 ml @ 200 mls/hr IV . Q5H [facility] Rx#:[id number] Sodium Chloride 0.9% 1, 1200 000 ml @ 999 mls/hr IV . Q1H1M ONE Rx#:[id number] Vancomycin 1,250 mg In 250 Sodium Chloride 0.9% 250 ml @ 125 mls/hr IVPB ONCE ONE Rx#:[id number] Intake, IV Titration 100 107.687 Amount Magnesium Sulfate-D5w Pmx 100 100 1 gm In Dextrose/Water 1 100ml.bag @ 100 mls/hr IVPB Q1H [facility] Rx#: [id number] Norepinephrine 4 mg In 7.687 Sodium Chloride 0.9% 250 ml @ Titrate IV .Q0M [facility] Rx#:[id number] Output: Urine 2075 2275 300 Other: Voiding Method Indwelling Catheter Indwelling Catheter Weight 96 kg 04/22/18 08:30 04/23/18 04:30 Assessment and Plan Assessment: Assessment #1 change in mental status likely related to metabolic encephalopathy. That has improved #2 acute renal failure which is improving. This is likely related to hypotension #3 hyperkalemia secondary to acute renal failure #4 mildly abnormal cardiac enzymes likely related to acute renal failure. The patient had no symptoms of chest pain or discomfort. No evidence of ischemic ST or T-wave abnormalities #5 coronary artery disease and status post PCI of the RCA in 2016 #6 peripheral vascular disease and status post angioplasty of the lower extremities #7 hypertension #8 dyslipidemia Plan #1 conservative medical approach regarding the abnormal cardiac enzymes. #2 restart the patient on aspirin #3 restart the patient on metoprolol once she is off vasopressors was norepinephrine #4 continue monitor the kidney function and electrolytes #5 avoid any nephrotoxic medications #6 follow-up with the patient. Thank you for allowing us participate in her care and we'll continue following up with her
--- NOTE | 2018-04-23 09:12 | XR ---
EXAMINATION TYPE: XR chest 1V DATE OF EXAM: 04/23/2018 COMPARISON: Prior chest x-ray 04/22/2017 HISTORY: Shortness of breath TECHNIQUE: Single frontal view of the chest is obtained. FINDINGS: There is abnormal opacity at the left lung base. No pneumothorax. Heart size is stable. Ao rta is dense. There are cardiac leads. Patient is rotated. Pulmonary vascularity is somewhat less con spicuous. IMPRESSION: Correlate for left lower lobe pneumonia versus edema, difficult to exclude effusion. Fol low-up is recommended.
[2018-04-23] MEDS: ASPIRIN 81 MG PO SCH (09:31)
--- NOTE | 2018-04-23 09:42 | P.PN ---
Subjective Patient is seen in follow-up for acute kidney injury. Patient baseline creatinine is 1 and was elevated at 10 on admission. She is currently maintained on bicarb drip as well as normal saline. Urine output has been over 5 L in the last 24 hours. Creatinine is down to 2.96 today. She is awake and alert. Currently on 2 mics of Levophed. Vital signs are stable. General: The patient appeared well nourished and normally developed. HEENT: Head exam is unremarkable. Neck is without jugular venous distension. LUNGS: Lungs are clear to auscultation and percussion. Breath sounds decreased. HEART: Rate and Rhythm are regular. First and second heart sounds normal. No murmurs, rubs or gallops. ABDOMEN: Abdominal exam reveals normal bowel sounds. Non-tender and non- distended. No evidence of peritonitis. EXTREMITITES: No clubbing, cyanosis, or edema. Objective - Vital Signs Vital signs: Vital Signs Temp 99.0 F 04/23/18 06:00 Pulse 92 04/23/18 07:00 Resp 13 04/23/18 07:00 BP 90/54 04/23/18 07:00 Pulse Ox 94 L 04/23/18 08:20 Intake & Output 04/22/18 04/23/18 04/23/18 18:59 06:59 18:59 Intake Total 1750 1817.687 50 Output Total 2400 3350 300 Balance -650 -1532.313 -250 Weight 95.6 kg 96 kg Intake: IV 1750 1610 50 ACETAMINOPHEN IV (For NPO 100 ) 1,000 mg In Empty Bag 1 bag @ 400 mls/hr IVPB ONCE ONE Rx#:[id number] Dextrose 5%-0.9% NaCl 1, 550 550 50 000 ml @ 50 mls/hr IV . Q23H [facility] with Sodium Bicarb (1 Meq/ml) 150 ml Rx#:[id number] Piperacillin-Tazobactam 3 100 .375 gm In Sodium Chloride 0.9% 100 ml @ 25 mls/hr IVPB Q8H [facility] Rx#: [id number] Sodium Chloride 0.9% 1, 610 000 ml @ 200 mls/hr IV . Q5H [facility] Rx#:[id number] Sodium Chloride 0.9% 1, 1200 000 ml @ 999 mls/hr IV . Q1H1M ONE Rx#:[id number] Vancomycin 1,250 mg In 250 Sodium Chloride 0.9% 250 ml @ 125 mls/hr IVPB ONCE ONE Rx#:[id number] Intake, IV Titration 207.687 Amount Magnesium Sulfate-D5w Pmx 200 1 gm In Dextrose/Water 1 100ml.bag @ 100 mls/hr IVPB Q1H [facility] Rx#: [id number] Norepinephrine 4 mg In 7.687 Sodium Chloride 0.9% 250 ml @ Titrate IV .Q0M [facility] Rx#:[id number] Output: Urine 2400 3350 300 Other: Voiding Method Indwelling Catheter Indwelling Catheter # Bowel Movements 1 - Labs CBC & Chem 7: 04/22/18 08:30 04/23/18 04:30 Labs: Abnormal Lab Results - Last 24 Hours (Table) 04/22/18 04/22/18 04/22/18 Range/Units 08:30 08:30 08:30 Neutrophils # (Manual) 10.88 H (1.3-7.7) k/uL Lymphocytes # (Manual) 0.63 L (1.0-4.8) k/uL D-Dimer (<0.60) mg/L FEU Sodium 133 L (137-145) mmol/L Potassium 6.8 H* (3.5-5.1) mmol/L Chloride 96 L (98-107) mmol/L Carbon Dioxide 17 L (22-30) mmol/L BUN 132 H* (7-17) mg/dL Creatinine 10.07 H* (0.52-1.04) mg/dL Glucose 136 H (74-99) mg/dL POC Glucose (mg/dL) (75-99) mg/dL Calcium 8.0 L (8.4-10.2) mg/dL Iron (50-170) ug/dL Iron Saturation (12.00-45.00) AST 52 H (14-36) U/L Total Creatine Kinase 2216 H* (30-135) U/L CK-MB (CK-2) 30.9 H (0.0-2.4) ng/mL Troponin I 0.139 H* (0.000-0.034) ng/mL Total Protein (6.3-8.2) g/dL Albumin (3.5-5.0) g/dL HDL Cholesterol (40-60) mg/dL Urine Appearance (Clear) Urine Protein (Negative) Urine Blood (Negative) Urine WBC (0-5) /hpf Amorphous Sediment (None) /hpf Urine Bacteria (None) /hpf Urine Mucus (None) /hpf Urine Opiates Screen (NotDetected) 04/22/18 04/22/18 04/22/18 Range/Units 08:30 10:14 13:55 Neutrophils # (Manual) (1.3-7.7) k/uL Lymphocytes # (Manual) (1.0-4.8) k/uL D-Dimer 0.75 H (<0.60) mg/L FEU Sodium (137-145) mmol/L Potassium (3.5-5.1) mmol/L Chloride (98-107) mmol/L Carbon Dioxide (22-30) mmol/L BUN (7-17) mg/dL Creatinine (0.52-1.04) mg/dL Glucose (74-99) mg/dL POC Glucose (mg/dL) 132 H (75-99) mg/dL Calcium (8.4-10.2) mg/dL Iron (50-170) ug/dL Iron Saturation (12.00-45.00) AST (14-36) U/L Total Creatine Kinase (30-135) U/L CK-MB (CK-2) (0.0-2.4) ng/mL Troponin I (0.000-0.034) ng/mL Total Protein (6.3-8.2) g/dL Albumin (3.5-5.0) g/dL HDL Cholesterol (40-60) mg/dL Urine Appearance Cloudy H (Clear) Urine Protein 1+ H (Negative) Urine Blood Moderate H (Negative) Urine WBC 16 H (0-5) /hpf Amorphous Sediment Rare H (None) /hpf Urine Bacteria Rare H (None) /hpf Urine Mucus Rare H (None) /hpf Urine Opiates Screen Detected H (NotDetected) 04/22/18 04/22/18 04/22/18 Range/Units 15:35 15:35 18:45 Neutrophils # (Manual) (1.3-7.7) k/uL Lymphocytes # (Manual) (1.0-4.8) k/uL D-Dimer (<0.60) mg/L FEU Sodium (137-145) mmol/L Potassium 5.6 H (3.5-5.1) mmol/L Chloride (98-107) mmol/L Carbon Dioxide (22-30) mmol/L BUN (7-17) mg/dL Creatinine (0.52-1.04) mg/dL Glucose (74-99) mg/dL POC Glucose (mg/dL) (75-99) mg/dL Calcium (8.4-10.2) mg/dL Iron 28 L (50-170) ug/dL Iron Saturation 11.67 L (12.00-45.00) AST (14-36) U/L Total Creatine Kinase (30-135) U/L CK-MB (CK-2) (0.0-2.4) ng/mL Troponin I 0.252 H* (0.000-0.034) ng/mL Total Protein (6.3-8.2) g/dL Albumin (3.5-5.0) g/dL HDL Cholesterol (40-60) mg/dL Urine Appearance (Clear) Urine Protein (Negative) Urine Blood (Negative) Urine WBC (0-5) /hpf Amorphous Sediment (None) /hpf Urine Bacteria (None) /hpf Urine Mucus (None) /hpf Urine Opiates Screen (NotDetected) 04/22/18 04/22/18 04/22/18 Range/Units 18:45 20:13 22:29 Neutrophils # (Manual) (1.3-7.7) k/uL Lymphocytes # (Manual) (1.0-4.8) k/uL D-Dimer (<0.60) mg/L FEU Sodium (137-145) mmol/L Potassium 5.5 H 5.6 H (3.5-5.1) mmol/L Chloride 110 H (98-107) mmol/L Carbon Dioxide (22-30) mmol/L BUN 98 H (7-17) mg/dL Creatinine 3.73 H (0.52-1.04) mg/dL Glucose 139 H (74-99) mg/dL POC Glucose (mg/dL) (75-99) mg/dL Calcium 8.2 L (8.4-10.2) mg/dL Iron (50-170) ug/dL Iron Saturation (12.00-45.00) AST (14-36) U/L Total Creatine Kinase (30-135) U/L CK-MB (CK-2) (0.0-2.4) ng/mL Troponin I 0.322 H* (0.000-0.034) ng/mL Total Protein (6.3-8.2) g/dL Albumin (3.5-5.0) g/dL HDL Cholesterol (40-60) mg/dL Urine Appearance (Clear) Urine Protein (Negative) Urine Blood (Negative) Urine WBC (0-5) /hpf Amorphous Sediment (None) /hpf Urine Bacteria (None) /hpf Urine Mucus (None) /hpf Urine Opiates Screen (NotDetected) 04/23/18 04/23/18 Range/Units 04:30 04:30 Neutrophils # (Manual) (1.3-7.7) k/uL Lymphocytes # (Manual) (1.0-4.8) k/uL D-Dimer (<0.60) mg/L FEU Sodium (137-145) mmol/L Potassium 5.2 H (3.5-5.1) mmol/L Chloride 112 H (98-107) mmol/L Carbon Dioxide (22-30) mmol/L BUN 87 H (7-17) mg/dL Creatinine 2.95 H (0.52-1.04) mg/dL Glucose 175 H (74-99) mg/dL POC Glucose (mg/dL) (75-99) mg/dL Calcium 8.1 L (8.4-10.2) mg/dL Iron (50-170) ug/dL Iron Saturation (12.00-45.00) AST 67 H (14-36) U/L Total Creatine Kinase (30-135) U/L CK-MB (CK-2) (0.0-2.4) ng/mL Troponin I (0.000-0.034) ng/mL Total Protein 5.5 L (6.3-8.2) g/dL Albumin 2.9 L (3.5-5.0) g/dL HDL Cholesterol 31 L (40-60) mg/dL Urine Appearance (Clear) Urine Protein (Negative) Urine Blood (Negative) Urine WBC (0-5) /hpf Amorphous Sediment (None) /hpf Urine Bacteria (None) /hpf Urine Mucus (None) /hpf Urine Opiates Screen (NotDetected) Assessment and Plan Plan: Assessment: 1. Acute kidney injury secondary to ATN secondary to hypotension and urinary retention. Creatinine 10.07 on admission and is down to 2.95 today. No hydronephrosis noted on renal ultrasound. 2. Hyperkalemia secondary to acute kidney injury, metabolic acidosis, use of lisinopril and Aldactone. Also component of urinary retention. Better. 3. Hyponatremia secondary to acute kidney injury. Resolved. 4. Metabolic acidosis secondary to acute kidney injury. Resolved. 5. Altered mental status related to use of opioids, particularly morphine in the setting of acute kidney injury. Better. 6. Volume overload secondary to IV fluids. Status post 40 mg IV Lasix this morning. 7. Anemia. Iron deficiency noted. Plan: Hep-Lock IV fluids. Status post IV Lasix 40 mg this morning. Wean Levophed. Avoid nephrotoxins. Encouraged oral intake. Continue to monitor renal function and urine output. Ferrlecit 125 mg IV daily for 3 days. First dose today.
--- NOTE | 2018-04-23 10:55 | P.PN ---
Subjective Progress Note Date: 04/23/18 Principal diagnosis: The patient is a 62-year-old female that was admitted with acute metabolic encephalopathy secondary to acute kidney injury and uremia as superimposed on chronic opioid use. On presentation the patient was confused CT of the head was negative for any acute intracranial pathology, she had gross electrolyte abnormalities with a creatinine of 10.1, potassium of 6.8 she was also noted to be hypotensive and was given aggressive IV fluid hydration, the patient subsequently went into acute respiratory failure with hypoxemia secondary to pulmonary edema superimposed on underlying septic shock due to left lower lobe pneumonia, she was placed on BiPAP and started on broad- spectrum antibiotics with IV vancomycin and Zosyn, patient was also started on IV pressors with Levophed to maintain a map greater than 65. The patient is on to have elevated troponins cardiology was consulted and determined that the elevated troponins were secondary to acute renal failure. EKG showed no evidence of ischemic ST or T wave abnormalities, echocardiogram ordered revealed normal LV function with mild MR and mild TR and moderate pulmonary hypertension. Nephrology Dr. Garcia was consulted The patient was started on isotonic bicarbonate drip @125 cc an hour, 10 units of regular insulin along with D50, all nephrotoxic agents were held including her lisinopril, diuretics were held including her HCTZ and Aldactone. It was thought that the patient's acute kidney injury secondary to ATN hypotension and urinary retention. Patient is awake and alert today, apparently went into respiratory failure overnight requiring BiPAP, likely secondary to the left lower lobe pneumonia superimposed on pulmonary edema. Given a single dose of Lasix for diuresis earlier today. Also started on levophed overnight. Patient is having adequate urine output, creatinine dropping from 10.1 on admission to 2.95 today. Patient running fevers max 103 overnight and started on IV antibiotics Objective - Vital Signs Vital signs: Vital Signs Temp 99.0 F 04/23/18 06:00 Pulse 92 04/23/18 07:00 Resp 13 04/23/18 07:00 BP 90/54 04/23/18 07:00 Pulse Ox 94 L 04/23/18 08:20 Intake & Output 04/22/18 04/23/18 04/23/18 18:59 06:59 18:59 Intake Total 1750 1817.687 50 Output Total 2400 3350 300 Balance -650 -1532.313 -250 Weight 95.6 kg 96 kg Intake: IV 1750 1610 50 ACETAMINOPHEN IV (For NPO 100 ) 1,000 mg In Empty Bag 1 bag @ 400 mls/hr IVPB ONCE ONE Rx#:[id number] Dextrose 5%-0.9% NaCl 1, 550 550 50 000 ml @ 50 mls/hr IV . Q23H [facility] with Sodium Bicarb (1 Meq/ml) 150 ml Rx#:[id number] Piperacillin-Tazobactam 3 100 .375 gm In Sodium Chloride 0.9% 100 ml @ 25 mls/hr IVPB Q8H [facility] Rx#: [id number] Sodium Chloride 0.9% 1, 610 000 ml @ 200 mls/hr IV . Q5H [facility] Rx#:[id number] Sodium Chloride 0.9% 1, 1200 000 ml @ 999 mls/hr IV . Q1H1M ONE Rx#:[id number] Vancomycin 1,250 mg In 250 Sodium Chloride 0.9% 250 ml @ 125 mls/hr IVPB ONCE ONE Rx#:[id number] Intake, IV Titration 207.687 Amount Magnesium Sulfate-D5w Pmx 200 1 gm In Dextrose/Water 1 100ml.bag @ 100 mls/hr IVPB Q1H [facility] Rx#: [id number] Norepinephrine 4 mg In 7.687 Sodium Chloride 0.9% 250 ml @ Titrate IV .Q0M [facility] Rx#:[id number] Output: Urine 2400 3350 300 Other: Voiding Method Indwelling Catheter Indwelling Catheter # Bowel Movements 1 - Exam Constitutional: Moderate respiratory distress, conversant, pleasant Eyes: Anicteric sclerae, moist conjunctiva, no lid-lag, PERRLA ENMT: NC/AT,Oropharynx clear, no erythema, exudates Neck:Supple, FROM, no masses, or JVD, No carotid bruits; No thyromegaly Lungs: Diminished in the bases, left middle and lower rhonchi, currently on 15 L nasal Cardiovascular: Tachycardic regular rhythm, No murmurs, gallops, or rubs no peripheral edema Abdominal: Soft Nontender, nom distended, no guarding, no rebound or rigidity, Normoactive bowel sounds No hepatomegaly, No splenomegaly, No palpable mass No abdominal wall hernia noted Skin: Normal temperature, tone, texture, turgor, No induration No subcutaneous nodules, No rash, lesions, No ulcers Extremities:No digital cyanosis No clubbing, Pedal pulses intact and symmetrical Radial pulses intact and symmetrical Normal gait and station, No calf tenderness Psychiatric: Alert and oriented to person, place and time, Appropriate affect Intact judgement Neuro: Muscles Strength 5/5 in all 4 extremities, Sensation to light touch grossly present throughout, Cranial nerves II-XII grossly intact. No focal sensory deficits - Labs CBC & Chem 7: 04/22/18 08:30 04/23/18 04:30 Labs: Abnormal Lab Results - Last 24 Hours (Table) 04/22/18 04/22/18 04/22/18 Range/Units 10:14 13:55 15:35 Potassium (3.5-5.1) mmol/L Chloride (98-107) mmol/L BUN (7-17) mg/dL Creatinine (0.52-1.04) mg/dL Glucose (74-99) mg/dL POC Glucose (mg/dL) 132 H (75-99) mg/dL Calcium (8.4-10.2) mg/dL Iron (50-170) ug/dL Iron Saturation (12.00-45.00) AST (14-36) U/L Troponin I 0.252 H* (0.000-0.034) ng/mL Total Protein (6.3-8.2) g/dL Albumin (3.5-5.0) g/dL HDL Cholesterol (40-60) mg/dL Urine Appearance Cloudy H (Clear) Urine Protein 1+ H (Negative) Urine Blood Moderate H (Negative) Urine WBC 16 H (0-5) /hpf Amorphous Sediment Rare H (None) /hpf Urine Bacteria Rare H (None) /hpf Urine Mucus Rare H (None) /hpf Urine Opiates Screen Detected H (NotDetected) 04/22/18 04/22/18 04/22/18 Range/Units 15:35 18:45 18:45 Potassium 5.6 H 5.5 H (3.5-5.1) mmol/L Chloride (98-107) mmol/L BUN (7-17) mg/dL Creatinine (0.52-1.04) mg/dL Glucose (74-99) mg/dL POC Glucose (mg/dL) (75-99) mg/dL Calcium (8.4-10.2) mg/dL Iron 28 L (50-170) ug/dL Iron Saturation 11.67 L (12.00-45.00) AST (14-36) U/L Troponin I (0.000-0.034) ng/mL Total Protein (6.3-8.2) g/dL Albumin (3.5-5.0) g/dL HDL Cholesterol (40-60) mg/dL Urine Appearance (Clear) Urine Protein (Negative) Urine Blood (Negative) Urine WBC (0-5) /hpf Amorphous Sediment (None) /hpf Urine Bacteria (None) /hpf Urine Mucus (None) /hpf Urine Opiates Screen (NotDetected) 04/22/18 04/22/18 04/23/18 Range/Units 20:13 22:29 04:30 Potassium 5.6 H (3.5-5.1) mmol/L Chloride 110 H (98-107) mmol/L BUN 98 H (7-17) mg/dL Creatinine 3.73 H (0.52-1.04) mg/dL Glucose 139 H (74-99) mg/dL POC Glucose (mg/dL) (75-99) mg/dL Calcium 8.2 L (8.4-10.2) mg/dL Iron (50-170) ug/dL Iron Saturation (12.00-45.00) AST (14-36) U/L Troponin I 0.322 H* (0.000-0.034) ng/mL Total Protein (6.3-8.2) g/dL Albumin (3.5-5.0) g/dL HDL Cholesterol 31 L (40-60) mg/dL Urine Appearance (Clear) Urine Protein (Negative) Urine Blood (Negative) Urine WBC (0-5) /hpf Amorphous Sediment (None) /hpf Urine Bacteria (None) /hpf Urine Mucus (None) /hpf Urine Opiates Screen (NotDetected) 04/23/18 Range/Units 04:30 Potassium 5.2 H (3.5-5.1) mmol/L Chloride 112 H (98-107) mmol/L BUN 87 H (7-17) mg/dL Creatinine 2.95 H (0.52-1.04) mg/dL Glucose 175 H (74-99) mg/dL POC Glucose (mg/dL) (75-99) mg/dL Calcium 8.1 L (8.4-10.2) mg/dL Iron (50-170) ug/dL Iron Saturation (12.00-45.00) AST 67 H (14-36) U/L Troponin I (0.000-0.034) ng/mL Total Protein 5.5 L (6.3-8.2) g/dL Albumin 2.9 L (3.5-5.0) g/dL HDL Cholesterol (40-60) mg/dL Urine Appearance (Clear) Urine Protein (Negative) Urine Blood (Negative) Urine WBC (0-5) /hpf Amorphous Sediment (None) /hpf Urine Bacteria (None) /hpf Urine Mucus (None) /hpf Urine Opiates Screen (NotDetected) Assessment and Plan (1) Septic shock Narrative/Plan: * Secondary to left lower lobe likely community-acquired pneumonia, sputum/ urine and blood cultures are pending * Patient weaned off of levophed currently with appropriate maps this morning * Patient afebrile overnight T-max of 103, follow-up today CBC * Continue IV antibiotics with Zosyn and vancomycin Current Visit: Yes Status: Acute Code(s): A41.9 - SEPSIS, UNSPECIFIED ORGANISM; R65.21 - SEVERE SEPSIS WITH SEPTIC SHOCK SNOMED Code(s): 68347813 (2) Acute respiratory failure with hypoxemia Narrative/Plan: * Secondary to pneumonia superimposed on pulmonary edema * Respiratory status improved post Lasix * Patient on BiPAP overnight currently on 15 L high flow nasal cannula * Initiated scheduled and when necessary DuoNeb breathing treatments * D-dimer was elevated likely secondary to sepsis, bilateral lower extremity Dopplers negative for DVT Current Visit: Yes Status: Acute Code(s): J96.01 - ACUTE RESPIRATORY FAILURE WITH HYPOXIA SNOMED Code(s): 858566065 (3) Pneumonia Narrative/Plan: * Treatment as above Current Visit: Yes Status: Acute Code(s): J18.9 - PNEUMONIA, UNSPECIFIED ORGANISM SNOMED Code(s): 667891794 (4) Acute kidney injury Narrative/Plan: * Secondary to ATN hypotension and urinary retention * Creatinine trending down to 2.95, patient having excellent urine output greater then 5 L in the last 24 hours * Continue to hold nephrotoxic agents * Metabolic acidosis has resolved * Renal ultrasound showing possible vascular calcification medial aspect of the right kidney pole and mid pole, subsequent CT abdomen and pelvis showing nonobstructing punctate right renal calculus Current Visit: Yes Status: Acute Code(s): N17.9 - ACUTE KIDNEY FAILURE, UNSPECIFIED SNOMED Code(s): 77775813 (5) Hyperkalemia Narrative/Plan: * Hyperkalemia improving down to 5.2 this morning Current Visit: Yes Status: Acute Code(s): E87.5 - HYPERKALEMIA SNOMED Code (s): 39800496 (6) Hypotension Narrative/Plan: * Multifactorial likely secondary to septic shock superimposed on dehydration Current Visit: Yes Status: Acute Code(s): I95.9 - HYPOTENSION, UNSPECIFIED SNOMED Code(s): 05350885 (7) Rhabdomyolysis Current Visit: Yes Status: Resolved Code(s): M62.82 - RHABDOMYOLYSIS SNOMED Code(s): 424605950 (8) Presence of stent in coronary artery in patient with coronary artery disease Narrative/Plan: * Elevated troponins likely secondary to acute kidney injury * Patient continued on aspirin therapy Current Visit: Yes Status: Chronic Code(s): I25.10 - ATHSCL HEART DISEASE OF [place] CORONARY ARTERY W/O ANG PCTRS; Z95.5 - PRESENCE OF CORONARY ANGIOPLASTY IMPLANT AND GRAFT SNOMED Code(s): 030868689 (9) Hyperlipemia Current Visit: No Status: Chronic Code(s): E78.5 - HYPERLIPIDEMIA, UNSPECIFIED SNOMED Code(s): 35936828 (10) PAD (peripheral artery disease) Current Visit: Yes Status: Chronic Code(s): I73.9 - PERIPHERAL VASCULAR DISEASE, UNSPECIFIED SNOMED Code(s): 511632762 (11) Metabolic encephalopathy Narrative/Plan: * Resolved likely secondary to acute kidney injury versus sepsis superimposed on chronic narcotic use Current Visit: Yes Status: Resolved Code(s): G93.41 - METABOLIC ENCEPHALOPATHY SNOMED Code(s): 83602781 Plan: Anticipated discharge 3-5 days
[2018-04-23] MEDS ORDERED: IPRATROPIUM-ALBUTEROL 3 ML NEB INHALATION PRN (10:57)
[2018-04-23] MEDS: SODIUM FERRIC GLUCONAT-SUCROSE 125 MG in SODIUM CHLORIDE 0.9% 100 ML IVPB SCH ×2 (11:03→11:31)
[2018-04-23 11:14] LABS: T4, Free (Free Thyroxine) 1.07 ng/dL (0.78-2.19)
[2018-04-23 11:32] LABS: HGB 9.1 gm/dL (11.4-16.0); Hypochromasia Marked; MCH 28.7 pg (25.0-35.0); MCHC 30.3 g/dL (31.0-37.0); MCV 94.7 fL (80.0-100.0); Platelet Count 214 k/uL (150-450); RBC 3.16 m/uL (3.80-5.40); RDW 14.7 % (11.5-15.5); WBC 7.7 k/uL (3.8-10.6)
[2018-04-23 12:21] LABS: Glucose,Whole Blood 122 mg/dL (75-99)
--- NOTE | 2018-04-23 12:50 | P.PN ---
Subjective Progress Note Date: 04/23/18 Principal diagnosis: Acute metabolic encephalopathy and acute kidney injury. This is a 62-year-old female with history of coronary artery disease, CA, previous stents, history of GERD, history of upper GI bleeding, hypertension, obstructive sleep apnea syndrome, and no previous history of documented kidney disease. Patient had previous documented peripheral vessel occlusive disease involving lower extremities, and she is also known to have history of ischemic cardiomyopathy. Patient has been doing quite well according to the , yesterday she was noted to be quite sleepy, and she slept most of the day. Early this morning, the patient was noted to be confused. was quite concerned, she is known to have history of tonic back pain, and she is mostly on morphine as well as hydrocodone on outpatient basis. She does not take any nonsteroidal anti-inflammatory drugs. Patient was brought into the ER with the chief complaint of confusion and mental status change. She was found to have hypotension with blood pressure systolic in the 50s. Patient was given Narcan, she was also given fluid boluses about 2 L. Her kidney functioning came back quite abnormal with creatinine of chest over 10, and her potassium was 6.8. Patient did receive calcium, IV insulin, D50, 2 A of bicarb, and she was placed on a bicarb drip. Patient was admitted to the ICU, and this consult was initiated. Choudhary catheter was placed and it showed good urine output, roughly about 500 mL were noted in the Choudhary catheter bag. Normally patient is on diuretics including Aldactone, she is also on lisinopril for hypertension and underlying coronary artery disease. No previous history of kidney injury. No previous history of documented kidney disease. Ultrasound of the kidneys showed no evidence of obstructive uropathy. She was seen by nephrology in consultation, and felt that her acute kidney injury is secondary to acute tubular necrosis from hypotension. And her hyperkalemia is related to her acute kidney injury worsened by the fact that the patient is on lisinopril and Aldactone. And it was felt that her mental status is likely related to metabolic encephalopathy, could also be related to the fact that the patient is chronically on opioids particularly morphine. Her CT of the brain came back negative. During my evaluation, the patient seemed confused, she looked clinically dehydrated, she denied any headache, no blurred vision, no dizziness. She felt generally weak. Denied any nausea vomiting abdominal pain , she has chronic low back pain. Denies any melena or hematemesis, no dysuria and no frequency no urgency. Patient was noted to have borderline blood pressure, was not on any pressors at the time she presented to the ICU. Patient was getting more fluid boluses shortly after I saw her. Patient was reevaluated today on 04/23/2018, she seems to be doing much better compared to how she felt yesterday. Mental status remains marginal, but again significantly improved compared to yesterday. Patient developed a brief episode of atrial fibrillation with RVR earlier this morning, she was on a small dose of norepinephrine, but since the norepinephrine was discontinued, she is presently now in sinus rhythm. Her kidney functioning demonstrated a significant improvement, creatinine is now down to 2.95. And her potassium is 5.2. Her troponin is also down to 0.322. Her creatinine was around 10 on admission. Patient remains on a sodium bicarb drip, she received significant amount of fluids overnight, and she also had a significant amount of urine output in the last 24 hours. Again patient is doing much better today compared to yesterday. Denies any cough no wheezing no shortness of breath. Chest x- ray was normal on admission, presently she has what seems to be left lower lobe atelectasis, possibly a small left pleural effusion, strongly doubt pneumonia. This is a new finding since admission. It could very well be related to the significant amount of fluid that the patient was given in the last 12 hours. She was seen by cardiology, and felt that her troponin elevation is nonspecific , hence no need for further cardiac intervention at this point, but we will address her episodes of atrial fibrillation with RVR. During the night, patient developed findings of pulmonary edema because of significant amount of fluids given, however he shouldn't responded well to Lasix, she was shortly on BiPAP, and now she is transitioned to a high flow nasal cannula, presently at 10 L, and she is saturating quite well. She did have a temp of 103 last night, and she was started on IV antibiotics. Cultures including blood cultures and urine cultures are negative so far. Objective - Vital Signs Vital signs: Vital Signs Temp 98.3 F 04/23/18 10:00 Pulse 90 04/23/18 11:00 Resp 8 L 04/23/18 10:00 BP 87/46 04/23/18 11:00 Pulse Ox 97 04/23/18 11:00 Intake & Output 04/22/18 04/23/18 04/23/18 18:59 06:59 18:59 Intake Total 1750 1817.687 346.875 Output Total 2400 3350 1385 Balance -650 -1532.313 -1038.125 Weight 95.6 kg 96 kg Intake: IV 1750 1610 280 ACETAMINOPHEN IV (For NPO 100 ) 1,000 mg In Empty Bag 1 bag @ 400 mls/hr IVPB ONCE ONE Rx#:[id number] Dextrose 5%-0.9% NaCl 1, 550 550 150 000 ml @ 50 mls/hr IV . Q23H [facility] with Sodium Bicarb (1 Meq/ml) 150 ml Rx#:[id number] Piperacillin-Tazobactam 3 100 100 .375 gm In Sodium Chloride 0.9% 100 ml @ 25 mls/hr IVPB Q8H [facility] Rx#: [id number] Sodium Chloride 0.9% 1, 610 30 000 ml @ 200 mls/hr IV . Q5H [facility] Rx#:[id number] Sodium Chloride 0.9% 1, 1200 000 ml @ 999 mls/hr IV . Q1H1M ONE Rx#:[id number] Vancomycin 1,250 mg In 250 Sodium Chloride 0.9% 250 ml @ 125 mls/hr IVPB ONCE ONE Rx#:[id number] Intake, IV Titration 207.687 66.875 Amount Magnesium Sulfate-D5w Pmx 200 1 gm In Dextrose/Water 1 100ml.bag @ 100 mls/hr IVPB Q1H [facility] Rx#: [id number] Norepinephrine 4 mg In 7.687 66.875 Sodium Chloride 0.9% 250 ml @ Titrate IV .Q0M [facility] Rx#:[id number] Output: Urine 2400 3350 1385 Other: Voiding Method Indwelling Catheter Indwelling Catheter Indwelling Catheter # Bowel Movements 1 - Exam Physical Exam: Revealed a 62-year-old female in no distress. Less confused today, seems to be more appropriate compared to yesterday Head: Atraumatic, normocephalic. HEENT:[Neck is supple.] [No neck masses.] [No thyromegaly.] [No JVD.] Dry mucous membranes noted, PERRLA, EOMI, no icterus. Chest: [Diminished breath sounds at the bases, no crackles or rhonchi or wheezes.] Cardiac Exam: [Normal S1 and S2, no S3 gallop, no murmur.] Abdomen: [Soft, nontender, no megaly, no rebound, no guarding, normal bowel sounds.] Extremities: [No clubbing, no edema, no cyanosis.] Good pulses noted bilaterally in upper and lower extremities. Neurological Exam: Awake, minimal confusion and disorientation, improved compared to yesterday. Musculoskeletal: Good muscle strength bilaterally. Lymphatics: No lymphadenopathy. Psychiatric: Awake, blunt affect, improved mental status. - Labs CBC & Chem 7: 04/23/18 04:35 04/23/18 04:30 Labs: Abnormal Lab Results - Last 24 Hours (Table) 04/22/18 04/22/18 04/22/18 Range/Units 13:55 15:35 15:35 RBC (3.80-5.40) m/uL Hgb (11.4-16.0) gm/dL Hct (34.0-46.0) % MCHC (31.0-37.0) g/dL Potassium 5.6 H (3.5-5.1) mmol/L Chloride (98-107) mmol/L BUN (7-17) mg/dL Creatinine (0.52-1.04) mg/dL Glucose (74-99) mg/dL POC Glucose (mg/dL) 132 H (75-99) mg/dL Calcium (8.4-10.2) mg/dL Iron (50-170) ug/dL Iron Saturation (12.00-45.00) AST (14-36) U/L Troponin I 0.252 H* (0.000-0.034) ng/mL Total Protein (6.3-8.2) g/dL Albumin (3.5-5.0) g/dL HDL Cholesterol (40-60) mg/dL TSH (0.465-4.680) mIU/L 04/22/18 04/22/18 04/22/18 Range/Units 18:45 18:45 20:13 RBC (3.80-5.40) m/uL Hgb (11.4-16.0) gm/dL Hct (34.0-46.0) % MCHC (31.0-37.0) g/dL Potassium 5.5 H (3.5-5.1) mmol/L Chloride (98-107) mmol/L BUN (7-17) mg/dL Creatinine (0.52-1.04) mg/dL Glucose (74-99) mg/dL POC Glucose (mg/dL) (75-99) mg/dL Calcium (8.4-10.2) mg/dL Iron 28 L (50-170) ug/dL Iron Saturation 11.67 L (12.00-45.00) AST (14-36) U/L Troponin I 0.322 H* (0.000-0.034) ng/mL Total Protein (6.3-8.2) g/dL Albumin (3.5-5.0) g/dL HDL Cholesterol (40-60) mg/dL TSH (0.465-4.680) mIU/L 04/22/18 04/23/18 04/23/18 Range/Units 22:29 04:30 04:30 RBC (3.80-5.40) m/uL Hgb (11.4-16.0) gm/dL Hct (34.0-46.0) % MCHC (31.0-37.0) g/dL Potassium 5.6 H 5.2 H (3.5-5.1) mmol/L Chloride 110 H 112 H (98-107) mmol/L BUN 98 H 87 H (7-17) mg/dL Creatinine 3.73 H 2.95 H (0.52-1.04) mg/dL Glucose 139 H 175 H (74-99) mg/dL POC Glucose (mg/dL) (75-99) mg/dL Calcium 8.2 L 8.1 L (8.4-10.2) mg/dL Iron (50-170) ug/dL Iron Saturation (12.00-45.00) AST 67 H (14-36) U/L Troponin I (0.000-0.034) ng/mL Total Protein 5.5 L (6.3-8.2) g/dL Albumin 2.9 L (3.5-5.0) g/dL HDL Cholesterol 31 L (40-60) mg/dL TSH (0.465-4.680) mIU/L 04/23/18 04/23/18 04/23/18 Range/Units 04:35 04:35 12:14 RBC 3.16 L (3.80-5.40) m/uL Hgb 9.1 L (11.4-16.0) gm/dL Hct 30.0 L (34.0-46.0) % MCHC 30.3 L (31.0-37.0) g/dL Potassium (3.5-5.1) mmol/L Chloride (98-107) mmol/L BUN (7-17) mg/dL Creatinine (0.52-1.04) mg/dL Glucose (74-99) mg/dL POC Glucose (mg/dL) 122 H (75-99) mg/dL Calcium (8.4-10.2) mg/dL Iron (50-170) ug/dL Iron Saturation (12.00-45.00) AST (14-36) U/L Troponin I (0.000-0.034) ng/mL Total Protein (6.3-8.2) g/dL Albumin (3.5-5.0) g/dL HDL Cholesterol (40-60) mg/dL TSH <0.015 L (0.465-4.680) mIU/L Microbiology - Last 24 Hours (Table) 04/23/18 01:45 Urine Culture - Preliminary Urine,Catheterized 04/22/18 08:30 Blood Culture - Preliminary Blood No Growth after 24 hours Assessment and Plan Assessment: Impression: 1 altered mental status, most likely secondary to metabolic encephalopathy related to her acute kidney injury and compounded by the fact that the patient has been on narcotics. 2 chronic pain syndrome, patient is on morphine and other narcotics for pain control. 3 acute hyperkalemia secondary to acute kidney injury and secondary to lisinopril and Aldactone. 4 history of coronary artery disease and previous stents placement, history of ischemic cardiomyopathy. 5 acute metabolic acidosis secondary to acute kidney injury and acute renal failure. 6 history of peripheral vessel occlusive disease involving lower extremities 7 history of hypertension, 8 history of obstructive sleep apnea syndrome 9 history of previous CA and stents placement 10 history of Tarlov cyst disease and chronic low back pain. 11 acute rhabdomyolysis, should improve with hydration which was already initiated upon arrival to the ER. 12 acute hypoxic respiratory failure secondary to fluid overload and some component of pulmonary edema secondary to diastolic dysfunction. But mostly related to the fact that the patient received a significant amount of fluids within a short period of time. Patient was briefly on BiPAP, transitioned to high flow nasal cannula, and we will likely transition to few liters nasal cannula today. IV fluids has been cut down and the patient did receive Lasix last night and early this morning. 13 possible sepsis, likely secondary to urinary tract infection, cultures are pending. Patient is empirically on antibiotics. 14 atrial fibrillation with RVR, paroxysmal, presently patient is in normal sinus rhythm. Being addressed by cardiology. Recommendation: Continue to monitor the patient in the ICU, continue sodium bicarb drip, continue IV fluids but cautiously, antibiotics, diuretics, bronchodilators, GI and DVT prophylaxis, monitor electrolytes and renal profile on a daily basis, continue lactulose for elevated ammonia level, await blood cultures and urine cultures, and adjust antibiotics accordingly. Patient is improving, but she remains relatively critically ill. Discussed her condition and her overnight developments with the . Patient will remain in the ICU , and we will continue to follow. Critical care time is 35 minutes. Time with Patient: Greater than 30
[2018-04-23 12:54] LABS: Monocytes # (M) 0.77 k/uL (0-1.0); Nucleated Red Blood Cells 0 /100 WBC (0-0)
[2018-04-23 12:55] LABS: Band Neutrophils % 6 %; Lymphocytes # (M) 0.15 k/uL (1.0-4.8); Neutrophils % (M) 82 %; Total Cells Counted 100
[2018-04-23 12:56] LABS: Poikilocytosis (M) Present
[2018-04-23] MEDS ORDERED: ACETAMINOPHEN TAB 325 MG TAB PO PRN (12:59)
[2018-04-23] MEDS ORDERED: TERBUTALINE 1 MG/ML VIAL SQ ONE (15:14)
[2018-04-23] MEDS: IPRATROPIUM-ALBUTEROL 3 ML NEB INHALATION SCH ×4 (15:26→23:47)
[2018-04-23] MEDS ORDERED: SODIUM CHLORIDE 0.9% 1,000 ML IV ONE (17:30)
[2018-04-23] MEDS: DILTIAZEM 50 MG in SODIUM CHLORIDE 0.9% 40 ML IV SCH (18:30)
[2018-04-24] MEDS: DILTIAZEM 50 MG in SODIUM CHLORIDE 0.9% 40 ML IV SCH (01:21)
[2018-04-24] MEDS: SODIUM CHLORIDE 0.9% 1,000 ML IV SCH ×3 (01:23→11:17)
[2018-04-24] MEDS: IPRATROPIUM-ALBUTEROL 3 ML NEB INHALATION SCH ×6 (04:28→23:32)
[2018-04-24 06:00] LABS: HGB 8.6 gm/dL (11.4-16.0); Hypochromasia Moderate; MCHC 30.9 g/dL (31.0-37.0); Mean Platelet Volume 6.6; Platelet Count 221 k/uL (150-450); RBC 2.98 m/uL (3.80-5.40); RDW 14.8 % (11.5-15.5); WBC 9.2 k/uL (3.8-10.6)
[2018-04-24] MEDS ORDERED: VANCOMYCIN 1,500 MG in SODIUM CHLORIDE 0.9% 250 ML IVPB ONE (06:00)
[2018-04-24 06:36] LABS: Band Neutrophils % 18 %; Lymphocytes # (M) 1.66 k/uL (1.0-4.8); Monocytes # (M) 0.83 k/uL (0-1.0); Neutrophils % (M) 55 %; Nucleated Red Blood Cells 0 /100 WBC (0-0); Total Cells Counted 200
[2018-04-24 06:37] LABS: Toxic Granulation Present
[2018-04-24 06:43] LABS: Calcium 8.4 mg/dL (8.4-10.2); Magnesium 1.6 mg/dL (1.6-2.3); Phosphorus 2.8 mg/dL (2.5-4.5); Potassium 4.4 mmol/L (3.5-5.1)
[2018-04-24] MEDS: METOPROLOL TARTRATE 25 MG TAB PO SCH ×3 (07:06→21:51)
[2018-04-24] MEDS: MAGNESIUM SULFATE-D5W PMX 1 GM in DEXTROSE/WATER 1 100ML.BAG IVPB SCH ×2 (07:13→09:01)
--- NOTE | 2018-04-24 07:19 | P.PN ---
Subjective Progress Note Date: 04/24/18 Principal diagnosis: Acute kidney injury This is a pleasant 62-year-old female patient who sees Dr. Sweet in the office on a regular basis with a past medical history significant for coronary artery disease and status post stenting of the right coronary artery in 2016 peripheral vascular disease involving the lower extremities and the patient is status post bilateral femoral arteries angioplasty, hypertension, and dyslipidemia, was brought by her to the emergency room with a change in mental status. The patient was in her usual state of health until Saturday when her noted that the patient was quite sleepy and she slept most of the day. Then her noted that the patient was confused and he was quite concerned about her and because of that he brought her to the emergency room. No indication of any symptoms of chest pain or chest discomfort, shortness of breath, or syncope. When the patient was brought to the emergency room she was found to be hypotensive with a systolic blood pressure in the 60s. Beside that the patient was noted to have acute renal failure with a creatinine of 10. Also she was found to have hyperkalemia with 6.8. Immediately the patient received fluid resuscitation and she received 2 L of fluid. Beside that she was given calcium gluconate for the hyperkalemia as well as she was given insulin and D50 as well as bicarb. After the patient was admitted to the intensive care unit last night and during her fluid dissociation she did go into flash pulmonary edema which was responded well to Lasix. The patient was seen and evaluated by the nephrology service and it was felt that her acute renal failure is related to hypotension and tubular necrosis. The EKG showed sinus rhythm with Q wave in the inferior leads indicating old inferior ND as well as nonspecific changes in the lateral leads. 2 sets of troponin were checked and came in to be slightly abnormal. And below 1. She underwent an echocardiogram during this admission and that revealed normal LV function with mild MR and mild TR and moderate pulmonary hypertension. The patient had no symptoms of chest pain or chest discomfort or shortness of breath according to her . On follow-up with the patient today, April 242018, the patient's mentation seems to be better. She is not as lethargic and as confused as yesterday. Denies having any chest pain or chest discomfort. No shortness of breath. She is off vasopressors completely. She did have an episode of atrial fibrillation last night and she was converted to normal sinus mechanism. Currently she is on Cardizem IV which I am going to stop and start the patient on by mouth metoprolol. I would hold any kind of anticoagulation at this point in view of the low hemoglobin. This atrial fibrillation is new to the patient. The creatinine has improved significantly. Electrolytes imbalance has improved as well. Objective - Vital Signs Vital signs: Vital Signs Temp 98.2 F 04/24/18 04:00 Pulse 69 04/24/18 06:00 Resp 16 04/24/18 06:00 BP 110/59 04/24/18 06:00 Pulse Ox 96 04/24/18 06:00 Intake & Output 04/23/18 04/24/18 04/24/18 18:59 06:59 18:59 Intake Total 1523.750 94.25 Output Total 2360 1675 Balance -836.250 -1580.75 Weight 95.4 kg Intake: IV 1430 60 Dextrose 5%-0.9% NaCl 1, 150 50 000 ml @ 50 mls/hr IV . Q23H [facility] with Sodium Bicarb (1 Meq/ml) 150 ml Rx#:[id number] Piperacillin-Tazobactam 3 200 .375 gm In Sodium Chloride 0.9% 100 ml @ 25 mls/hr IVPB Q8H [facility] Rx#: [id number] Sodium Chloride 0.9% 1, 80 10 000 ml @ 200 mls/hr IV . Q5H [facility] Rx#:[id number] Sodium Chloride 0.9% 1, 1000 000 ml @ 999 mls/hr IV . Q1H1M ONE Rx#:[id number] Intake, IV Titration 93.750 34.25 Amount Diltiazem 50 mg In Sodium 34.25 Chloride 0.9% 40 ml @ 5 MG/HR 5 mls/hr IV .Q10H [facility] Rx#:[id number] Norepinephrine 4 mg In 93.750 Sodium Chloride 0.9% 250 ml @ Titrate IV .Q0M [facility] Rx#:[id number] Output: Urine 2360 1675 Other: Voiding Method Indwelling Catheter Indwelling Catheter - Constitutional General appearance: Present: no acute distress - Respiratory Respiratory: bilateral: CTA - Cardiovascular Rhythm: regular Heart sounds: normal: S1, S2 - Labs CBC & Chem 7: 04/24/18 04:58 04/24/18 04:58 Labs: Abnormal Lab Results - Last 24 Hours (Table) 04/23/18 04/23/18 04/23/18 Range/Units 04:35 04:35 12:14 RBC 3.16 L (3.80-5.40) m/uL Hgb 9.1 L (11.4-16.0) gm/dL Hct 30.0 L (34.0-46.0) % MCHC 30.3 L (31.0-37.0) g/dL Lymphocytes # (Manual) 0.15 L (1.0-4.8) k/uL Chloride (98-107) mmol/L Carbon Dioxide (22-30) mmol/L BUN (7-17) mg/dL Creatinine (0.52-1.04) mg/dL Glucose (74-99) mg/dL POC Glucose (mg/dL) 122 H (75-99) mg/dL TSH <0.015 L (0.465-4.680) mIU/L 04/24/18 04/24/18 Range/Units 04:58 04:58 RBC 2.98 L (3.80-5.40) m/uL Hgb 8.6 L (11.4-16.0) gm/dL Hct 28.0 L (34.0-46.0) % MCHC 30.9 L (31.0-37.0) g/dL Lymphocytes # (Manual) (1.0-4.8) k/uL Chloride 108 H (98-107) mmol/L Carbon Dioxide 31 H (22-30) mmol/L BUN 36 H (7-17) mg/dL Creatinine 1.13 H (0.52-1.04) mg/dL Glucose 117 H (74-99) mg/dL POC Glucose (mg/dL) (75-99) mg/dL TSH (0.465-4.680) mIU/L Microbiology - Last 24 Hours (Table) 04/23/18 01:49 Blood Culture - Preliminary Blood No Growth after 24 hours 04/23/18 01:45 Urine Culture - Preliminary Urine,Catheterized 04/22/18 08:30 Blood Culture - Preliminary Blood No Growth after 24 hours Assessment and Plan Assessment: Assessment #1 change in mental status likely related to metabolic encephalopathy. That has improved #2 acute renal failure which is improving. This is likely related to hypotension #3 hyperkalemia secondary to acute renal failure #4 mildly abnormal cardiac enzymes likely related to acute renal failure. The patient had no symptoms of chest pain or discomfort. No evidence of ischemic ST or T-wave abnormalities #5 coronary artery disease and status post PCI of the RCA in 2016 #6 peripheral vascular disease and status post angioplasty of the lower extremities #7 hypertension #8 dyslipidemia #9 paroxysmal atrial fibrillation Plan #1 conservative medical approach regarding the abnormal cardiac enzymes. #2 restart the patient on aspirin #3 DC Cardizem IV and start the patient on metoprolol by mouth #4 continue monitor the kidney function and electrolytes #5 avoid any nephrotoxic medications #6 follow-up with the patient. Thank you for allowing us participate in her care and we'll continue following up with her
[2018-04-24] MEDS: SODIUM FERRIC GLUCONAT-SUCROSE 125 MG in SODIUM CHLORIDE 0.9% 100 ML IVPB SCH (08:43)
[2018-04-24] MEDS: ASPIRIN 81 MG PO SCH (09:01)
[2018-04-24] MEDS: HEPARIN SODIUM,PORCINE 5,000 UNIT/ML 1 ML VIAL SQ SCH ×2 (09:01→16:48)
--- NOTE | 2018-04-24 09:06 | XR ---
EXAMINATION TYPE: XR chest 1V DATE OF EXAM: 04/24/2018 COMPARISON: 04/23/2018 HISTORY: Shortness of breath TECHNIQUE: Single frontal view of the chest is obtained. FINDINGS: Heart is enlarged and there is bilateral consolidation and small effusion. No pneumothorax . Arthropathy of the shoulder. Atherosclerotic change aorta. No pneumothorax. IMPRESSION: 1. Bilateral consolidation and pleural effusion correlate for pneumonia versus CHF.
[2018-04-24] MEDS ORDERED: POLYETHYLENE GLYCOL 3350 17 GM POWD.PACK PO STA (09:52)
--- NOTE | 2018-04-24 10:00 | P.PN ---
Subjective Progress Note Date: 04/24/18 Principal diagnosis: The patient is a 62-year-old female that was admitted with acute metabolic encephalopathy secondary to acute kidney injury and uremia as superimposed on chronic opioid use. On presentation the patient was confused CT of the head was negative for any acute intracranial pathology, she had gross electrolyte abnormalities with a creatinine of 10.1, potassium of 6.8 she was also noted to be hypotensive and was given aggressive IV fluid hydration, the patient subsequently went into acute respiratory failure with hypoxemia secondary to pulmonary edema superimposed on underlying septic shock due to left lower lobe pneumonia, she was placed on BiPAP and started on broad- spectrum antibiotics with IV vancomycin and Zosyn, patient was also started on IV pressors with Levophed to maintain a map greater than 65. The patient is on to have elevated troponins cardiology was consulted and determined that the elevated troponins were secondary to acute renal failure. EKG showed no evidence of ischemic ST or T wave abnormalities, echocardiogram ordered revealed normal LV function with mild MR and mild TR and moderate pulmonary hypertension. Nephrology Dr. Garcia was consulted The patient was started on isotonic bicarbonate drip @125 cc an hour, 10 units of regular insulin along with D50, all nephrotoxic agents were held including her lisinopril, diuretics were held including her HCTZ and Aldactone. It was thought that the patient's acute kidney injury secondary to ATN hypotension and urinary retention. While in the ICU the patient went into A. fib with RVR and was started on IV Cardizem and subsequently converted back to normal sinus rhythm and was transitioned to oral metoprolol. Patient feeling better not as confused notes some improvement, currently on 12 L high flow nasal cannula and was apparently on BiPAP overnight. Febrile within the last 24 hours, continues to cough productive sputum. Currently on clear liquids as it had a bowel movement would like to eat. Cardizem drip discontinued patient currently on metoprolol. Patient having had adequate urine output creatinine trending down from 2.95 to 1.13. Objective - Vital Signs Vital signs: Vital Signs Temp 98.1 F 04/24/18 08:00 Pulse 84 04/24/18 09:00 Resp 22 04/24/18 09:00 BP 118/56 04/24/18 09:00 Pulse Ox 89 L 04/24/18 09:00 Intake & Output 04/23/18 04/24/1819 18:59 06:59 18:59 Intake Total 1523.750 94.25 45 Output Total 2360 1675 300 Balance -836.250 -1580.75 -255 Weight 95.4 kg Intake: IV 1430 60 45 .9 kvo 45 Dextrose 5%-0.9% NaCl 1, 150 50 000 ml @ 50 mls/hr IV . Q23H [facility] with Sodium Bicarb (1 Meq/ml) 150 ml Rx#:[id number] Piperacillin-Tazobactam 3 200 .375 gm In Sodium Chloride 0.9% 100 ml @ 25 mls/hr IVPB Q8H [facility] Rx#: [id number] Sodium Chloride 0.9% 1, 80 10 000 ml @ 200 mls/hr IV . Q5H [facility] Rx#:[id number] Sodium Chloride 0.9% 1, 1000 000 ml @ 999 mls/hr IV . Q1H1M ONE Rx#:[id number] Intake, IV Titration 93.750 34.25 Amount Diltiazem 50 mg In Sodium 34.25 Chloride 0.9% 40 ml @ 5 MG/HR 5 mls/hr IV .Q10H [facility] Rx#:[id number] Norepinephrine 4 mg In 93.750 Sodium Chloride 0.9% 250 ml @ Titrate IV .Q0M [facility] Rx#:[id number] Output: Urine 2360 1675 300 Other: Voiding Method Indwelling Catheter Indwelling Catheter - Exam Constitutional: Mild respiratory distress, conversant, pleasant Eyes: Anicteric sclerae, moist conjunctiva, no lid-lag, PERRLA ENMT: NC/AT,Oropharynx clear, no erythema, exudates Neck:Supple, FROM, no masses, or JVD, No carotid bruits; No thyromegaly Lungs: Diminished in the bases, poor aeration poor effort, on 12 L high flow nasal cannula Cardiovascular: Regular rate and rhythm, No murmurs, gallops, or rubs no peripheral edema Abdominal: Soft Nontender, nom distended, no guarding, no rebound or rigidity, Normoactive bowel sounds No hepatomegaly, No splenomegaly, No palpable mass No abdominal wall hernia noted Skin: Normal temperature, tone, texture, turgor, No induration No subcutaneous nodules, No rash, lesions, No ulcers Extremities:No digital cyanosis No clubbing, Pedal pulses intact and symmetrical Radial pulses intact and symmetrical Normal gait and station, No calf tenderness Psychiatric: Alert and oriented to person, place and time, Appropriate affect Intact judgement Neuro: Muscles Strength 5/5 in all 4 extremities, Sensation to light touch grossly present throughout, Cranial nerves II-XII grossly intact. No focal sensory deficits - Labs CBC & Chem 7: 04/24/18 04:58 04/24/18 04:58 Labs: Abnormal Lab Results - Last 24 Hours (Table) 04/23/18 04/23/18 04/23/18 Range/Units 04:35 04:35 12:14 RBC 3.16 L (3.80-5.40) m/uL Hgb 9.1 L (11.4-16.0) gm/dL Hct 30.0 L (34.0-46.0) % MCHC 30.3 L (31.0-37.0) g/dL Lymphocytes # (Manual) 0.15 L (1.0-4.8) k/uL Chloride (98-107) mmol/L Carbon Dioxide (22-30) mmol/L BUN (7-17) mg/dL Creatinine (0.52-1.04) mg/dL Glucose (74-99) mg/dL POC Glucose (mg/dL) 122 H (75-99) mg/dL TSH <0.015 L (0.465-4.680) mIU/L 04/24/18 04/24/18 Range/Units 04:58 04:58 RBC 2.98 L (3.80-5.40) m/uL Hgb 8.6 L (11.4-16.0) gm/dL Hct 28.0 L (34.0-46.0) % MCHC 30.9 L (31.0-37.0) g/dL Lymphocytes # (Manual) (1.0-4.8) k/uL Chloride 108 H (98-107) mmol/L Carbon Dioxide 31 H (22-30) mmol/L BUN 36 H (7-17) mg/dL Creatinine 1.13 H (0.52-1.04) mg/dL Glucose 117 H (74-99) mg/dL POC Glucose (mg/dL) (75-99) mg/dL TSH (0.465-4.680) mIU/L Microbiology - Last 24 Hours (Table) 04/23/18 01:49 Blood Culture - Preliminary Blood No Growth after 24 hours 04/23/18 01:45 Urine Culture - Preliminary Urine,Catheterized 04/22/18 08:30 Blood Culture - Preliminary Blood No Growth after 24 hours Assessment and Plan (1) Septic shock Narrative/Plan: * Secondary to left lower lobe likely community-acquired pneumonia, sputum/ urine and blood cultures are pending * Blood pressure continues to maintain steady off IV pressors * Patient afebrile within the last 24 hours, no leukocytosis * Continue IV antibiotics with Zosyn and vancomycin Current Visit: Yes Status: Acute Code(s): A41.9 - SEPSIS, UNSPECIFIED ORGANISM; R65.21 - SEVERE SEPSIS WITH SEPTIC SHOCK SNOMED Code(s): 36659056 (2) Acute respiratory failure with hypoxemia Narrative/Plan: * Secondary to pneumonia superimposed on pulmonary edema * Respiratory status improved post Lasix * Patient on BiPAP overnight currently on 12 L high flow nasal cannula * continue scheduled and when necessary DuoNeb breathing treatments * D-dimer was elevated likely secondary to sepsis, bilateral lower extremity Dopplers negative for DVT Current Visit: Yes Status: Acute Code(s): J96.01 - ACUTE RESPIRATORY FAILURE WITH HYPOXIA SNOMED Code(s): 131187152 (3) Pneumonia Narrative/Plan: * Treatment as above Current Visit: Yes Status: Acute Code(s): J18.9 - PNEUMONIA, UNSPECIFIED ORGANISM SNOMED Code(s): 568163199 (4) Acute kidney injury Narrative/Plan: * Secondary to ATN hypotension and urinary retention * Creatinine trending down to 1.15 from 2.95, patient having excellent urine output * Continue to hold nephrotoxic agents * Metabolic acidosis has resolved * Renal ultrasound showing possible vascular calcification medial aspect of the right kidney pole and mid pole, subsequent CT abdomen and pelvis showing nonobstructing punctate right renal calculus Current Visit: Yes Status: Acute Code(s): N17.9 - ACUTE KIDNEY FAILURE, UNSPECIFIED SNOMED Code(s): 28274665 (5) Hyperkalemia Current Visit: Yes Status: Acute Code(s): E87.5 - HYPERKALEMIA SNOMED Code (s): 72908373 (6) Hypotension Narrative/Plan: * Multifactorial likely secondary to septic shock superimposed on dehydration Current Visit: Yes Status: Resolved Code(s): I95.9 - HYPOTENSION, UNSPECIFIED SNOMED Code(s): 57235704 (7) Rhabdomyolysis Current Visit: Yes Status: Resolved Code(s): M62.82 - RHABDOMYOLYSIS SNOMED Code(s): 702944660 (8) Presence of stent in coronary artery in patient with coronary artery disease Narrative/Plan: * Elevated troponins likely secondary to acute kidney injury * Patient continued on aspirin therapy Current Visit: Yes Status: Chronic Code(s): I25.10 - ATHSCL HEART DISEASE OF [place] CORONARY ARTERY W/O ANG PCTRS; Z95.5 - PRESENCE OF CORONARY ANGIOPLASTY IMPLANT AND GRAFT SNOMED Code(s): 494890015 (9) Hyperlipemia Current Visit: No Status: Chronic Code(s): E78.5 - HYPERLIPIDEMIA, UNSPECIFIED SNOMED Code(s): 44678172 (10) PAD (peripheral artery disease) Current Visit: Yes Status: Chronic Code(s): I73.9 - PERIPHERAL VASCULAR DISEASE, UNSPECIFIED SNOMED Code(s): 451246857 (11) Metabolic encephalopathy Narrative/Plan: * Resolved likely secondary to acute kidney injury versus sepsis superimposed on chronic narcotic use Current Visit: Yes Status: Resolved Code(s): G93.41 - METABOLIC ENCEPHALOPATHY SNOMED Code(s): 48790087 (12) Constipation Narrative/Plan: * Initiated MiraLAX therapy Current Visit: Yes Status: Acute Code(s): K59.00 - CONSTIPATION, UNSPECIFIED SNOMED Code(s): 49376463 (13) Atrial fibrillation with RVR Narrative/Plan: * Transitioned off Cardizem currently on metoprolol in normal sinus rhythm * Ejection fraction normal possibly has diastolic dysfunction, previously in pulmonary edema * Defer to cardiology on whether anticoagulation is needed Current Visit: Yes Status: Resolved Code(s): I48.91 - UNSPECIFIED ATRIAL FIBRILLATION SNOMED Code(s): 155483716084650 (14) Iron deficiency anemia Narrative/Plan: * Hemoglobin 8.6 continue to monitor * We'll need iron supplementation on discharge after patient's sepsis is resolved Current Visit: Yes Status: Acute Code(s): D50.9 - IRON DEFICIENCY ANEMIA, UNSPECIFIED SNOMED Code(s): 55848402 Plan: Anticipated discharge 1-2 days * Patient is elected to proceed with physical therapy at [facility] * Continue current treatment plan, cholestyramine oxygen as tolerated
[2018-04-24] MEDS: PIPERACILLIN-TAZOBACTAM 3.375 GM in SODIUM CHLORIDE 0.9% 100 ML IVPB SCH ×2 (10:07→21:51)
[2018-04-24] MEDS ORDERED: FUROSEMIDE 10 MG/ML 4 ML VIAL IV STA (10:17)
--- NOTE | 2018-04-24 10:17 | P.PN ---
Subjective Patient is seen in follow-up for acute kidney injury. Patient baseline creatinine is 1 and was elevated at 10 on admission. Renal function is improved significantly since admission. She is currently off all IV fluids. Oral intake is fair. She is nonoliguric. Vital signs are stable. General: The patient appeared well nourished and normally developed. HEENT: Head exam is unremarkable. Neck is without jugular venous distension. LUNGS: Lungs are clear to auscultation and percussion. Breath sounds decreased. HEART: Rate and Rhythm are regular. First and second heart sounds normal. No murmurs, rubs or gallops. ABDOMEN: Abdominal exam reveals normal bowel sounds. Non-tender and non- distended. No evidence of peritonitis. EXTREMITITES: No clubbing, cyanosis, or edema. Objective - Vital Signs Vital signs: Vital Signs Temp 98.1 F 04/24/18 08:00 Pulse 82 04/24/18 10:00 Resp 15 04/24/18 10:00 BP 111/46 04/24/18 10:00 Pulse Ox 88 L 04/24/18 10:00 Intake & Output 04/23/18 04/24/18 04/24/18 18:59 06:59 18:59 Intake Total 1523.750 94.25 160 Output Total 2360 1675 550 Balance -836.250 -1580.75 -390 Weight 95.4 kg Intake: IV 1430 60 160 .9 kvo 60 Dextrose 5%-0.9% NaCl 1, 150 50 000 ml @ 50 mls/hr IV . Q23H [facility] with Sodium Bicarb (1 Meq/ml) 150 ml Rx#:[id number] Piperacillin-Tazobactam 3 200 100 .375 gm In Sodium Chloride 0.9% 100 ml @ 25 mls/hr IVPB Q8H [facility] Rx#: [id number] Sodium Chloride 0.9% 1, 80 10 000 ml @ 200 mls/hr IV . Q5H [facility] Rx#:[id number] Sodium Chloride 0.9% 1, 1000 000 ml @ 999 mls/hr IV . Q1H1M ONE Rx#:[id number] Intake, IV Titration 93.750 34.25 Amount Diltiazem 50 mg In Sodium 34.25 Chloride 0.9% 40 ml @ 5 MG/HR 5 mls/hr IV .Q10H [facility] Rx#:[id number] Norepinephrine 4 mg In 93.750 Sodium Chloride 0.9% 250 ml @ Titrate IV .Q0M [facility] Rx#:[id number] Output: Urine 2360 1675 550 Other: Voiding Method Indwelling Catheter Indwelling Catheter - Labs CBC & Chem 7: 04/24/18 04:58 04/24/18 04:58 Labs: Abnormal Lab Results - Last 24 Hours (Table) 04/23/18 04/23/18 04/23/18 Range/Units 04:35 04:35 12:14 RBC 3.16 L (3.80-5.40) m/uL Hgb 9.1 L (11.4-16.0) gm/dL Hct 30.0 L (34.0-46.0) % MCHC 30.3 L (31.0-37.0) g/dL Lymphocytes # (Manual) 0.15 L (1.0-4.8) k/uL Chloride (98-107) mmol/L Carbon Dioxide (22-30) mmol/L BUN (7-17) mg/dL Creatinine (0.52-1.04) mg/dL Glucose (74-99) mg/dL POC Glucose (mg/dL) 122 H (75-99) mg/dL TSH <0.015 L (0.465-4.680) mIU/L 04/24/18 04/24/18 Range/Units 04:58 04:58 RBC 2.98 L (3.80-5.40) m/uL Hgb 8.6 L (11.4-16.0) gm/dL Hct 28.0 L (34.0-46.0) % MCHC 30.9 L (31.0-37.0) g/dL Lymphocytes # (Manual) (1.0-4.8) k/uL Chloride 108 H (98-107) mmol/L Carbon Dioxide 31 H (22-30) mmol/L BUN 36 H (7-17) mg/dL Creatinine 1.13 H (0.52-1.04) mg/dL Glucose 117 H (74-99) mg/dL POC Glucose (mg/dL) (75-99) mg/dL TSH (0.465-4.680) mIU/L Microbiology - Last 24 Hours (Table) 04/23/18 01:45 Urine Culture - Final Urine,Catheterized 04/23/18 01:49 Blood Culture - Preliminary Blood No Growth after 24 hours 04/22/18 08:30 Blood Culture - Preliminary Blood No Growth after 24 hours Assessment and Plan Plan: Assessment: 1. Acute kidney injury secondary to ATN secondary to hypotension and urinary retention. Creatinine 10.07 on admission and is down to 1.13 today. No hydronephrosis noted on renal ultrasound. 2. Hyperkalemia secondary to acute kidney injury, metabolic acidosis, use of lisinopril and Aldactone. Also component of urinary retention. Better. 3. Hyponatremia secondary to acute kidney injury. Resolved. 4. Metabolic acidosis secondary to acute kidney injury. Resolved. 5. Altered mental status related to use of opioids, particularly morphine in the setting of acute kidney injury. Better. 6. Volume overload secondary to IV fluids. Status post 40 mg IV Lasix yesterday. 7. Anemia. Iron deficiency noted. IV iron held due to infection. 8. Hypomagnesemia secondary to diuresis. Plan: Repeat Lasix 40 mg IV once today. Avoid nephrotoxins. Encouraged oral intake. Continue to monitor renal function and urine output. Magnesium being replaced.
--- NOTE | 2018-04-24 13:38 | P.PN ---
Subjective Progress Note Date: 04/24/18 Principal diagnosis: Acute metabolic encephalopathy and acute kidney injury. This is a 62-year-old female with history of coronary artery disease, SD, previous stents, history of GERD, history of upper GI bleeding, hypertension, obstructive sleep apnea syndrome, and no previous history of documented kidney disease. Patient had previous documented peripheral vessel occlusive disease involving lower extremities, and she is also known to have history of ischemic cardiomyopathy. Patient has been doing quite well according to the , yesterday she was noted to be quite sleepy, and she slept most of the day. Early this morning, the patient was noted to be confused. was quite concerned, she is known to have history of tonic back pain, and she is mostly on morphine as well as hydrocodone on outpatient basis. She does not take any nonsteroidal anti-inflammatory drugs. Patient was brought into the ER with the chief complaint of confusion and mental status change. She was found to have hypotension with blood pressure systolic in the 50s. Patient was given Narcan, she was also given fluid boluses about 2 L. Her kidney functioning came back quite abnormal with creatinine of chest over 10, and her potassium was 6.8. Patient did receive calcium, IV insulin, D50, 2 A of bicarb, and she was placed on a bicarb drip. Patient was admitted to the ICU, and this consult was initiated. Choudhary catheter was placed and it showed good urine output, roughly about 500 mL were noted in the Choudhary catheter bag. Normally patient is on diuretics including Aldactone, she is also on lisinopril for hypertension and underlying coronary artery disease. No previous history of kidney injury. No previous history of documented kidney disease. Ultrasound of the kidneys showed no evidence of obstructive uropathy. She was seen by nephrology in consultation, and felt that her acute kidney injury is secondary to acute tubular necrosis from hypotension. And her hyperkalemia is related to her acute kidney injury worsened by the fact that the patient is on lisinopril and Aldactone. And it was felt that her mental status is likely related to metabolic encephalopathy, could also be related to the fact that the patient is chronically on opioids particularly morphine. Her CT of the brain came back negative. During my evaluation, the patient seemed confused, she looked clinically dehydrated, she denied any headache, no blurred vision, no dizziness. She felt generally weak. Denied any nausea vomiting abdominal pain , she has chronic low back pain. Denies any melena or hematemesis, no dysuria and no frequency no urgency. Patient was noted to have borderline blood pressure, was not on any pressors at the time she presented to the ICU. Patient was getting more fluid boluses shortly after I saw her. Patient was reevaluated today on 04/23/2018, she seems to be doing much better compared to how she felt yesterday. Mental status remains marginal, but again significantly improved compared to yesterday. Patient developed a brief episode of atrial fibrillation with RVR earlier this morning, she was on a small dose of norepinephrine, but since the norepinephrine was discontinued, she is presently now in sinus rhythm. Her kidney functioning demonstrated a significant improvement, creatinine is now down to 2.95. And her potassium is 5.2. Her troponin is also down to 0.322. Her creatinine was around 10 on admission. Patient remains on a sodium bicarb drip, she received significant amount of fluids overnight, and she also had a significant amount of urine output in the last 24 hours. Again patient is doing much better today compared to yesterday. Denies any cough no wheezing no shortness of breath. Chest x- ray was normal on admission, presently she has what seems to be left lower lobe atelectasis, possibly a small left pleural effusion, strongly doubt pneumonia. This is a new finding since admission. It could very well be related to the significant amount of fluid that the patient was given in the last 12 hours. She was seen by cardiology, and felt that her troponin elevation is nonspecific , hence no need for further cardiac intervention at this point, but we will address her episodes of atrial fibrillation with RVR. During the night, patient developed findings of pulmonary edema because of significant amount of fluids given, however he shouldn't responded well to Lasix, she was shortly on BiPAP, and now she is transitioned to a high flow nasal cannula, presently at 10 L, and she is saturating quite well. She did have a temp of 103 last night, and she was started on IV antibiotics. Cultures including blood cultures and urine cultures are negative so far. Patient was reevaluated today on 04/24/2018, patient is feeling better, she is off pressors, not requiring any norepinephrine, she is off Cardizem and she is presently in normal sinus rhythm. Patient converted to normal sinus rhythm last night, maintained on 10 L high flow nasal cannula, O2 saturation is marginal. Patient was given a dose of Lasix earlier today, and her chest x-ray continues to show mild pulmonary edema. Her renal functioning is getting much better. She presented initially with creatinine of 10, and today her creatinine is 1.13. BUN is 36. CBC is relatively normal. I believe the patient will even improve further with the Lasix and we will be able to titrate down her FiO2 to a lower FiO2. Objective - Vital Signs Vital signs: Vital Signs Temp 98.5 F 04/24/18 12:00 Pulse 92 04/24/18 13:00 Resp 18 04/24/18 13:00 BP 131/60 04/24/18 13:00 Pulse Ox 93 L 04/24/18 13:00 Intake & Output 04/23/18 04/24/18 04/24/18 18:59 06:59 18:59 Intake Total 1523.750 94.25 305 Output Total 2360 1675 1900 Balance -836.250 -1580.75 -1595 Weight 95.4 kg Intake: IV 1430 60 205 .9 kvo 105 Dextrose 5%-0.9% NaCl 1, 150 50 000 ml @ 50 mls/hr IV . Q23H [facility] with Sodium Bicarb (1 Meq/ml) 150 ml Rx#:[id number] Piperacillin-Tazobactam 3 200 100 .375 gm In Sodium Chloride 0.9% 100 ml @ 25 mls/hr IVPB Q8H [facility] Rx#: [id number] Sodium Chloride 0.9% 1, 80 10 000 ml @ 200 mls/hr IV . Q5H [facility] Rx#:[id number] Sodium Chloride 0.9% 1, 1000 000 ml @ 999 mls/hr IV . Q1H1M ONE Rx#:[id number] Intake, IV Titration 93.750 34.25 100 Amount Diltiazem 50 mg In Sodium 34.25 Chloride 0.9% 40 ml @ 5 MG/HR 5 mls/hr IV .Q10H [facility] Rx#:[id number] Norepinephrine 4 mg In 93.750 Sodium Chloride 0.9% 250 ml @ Titrate IV .Q0M [facility] Rx#:[id number] Sodium Ferric Gluconat- 100 Sucrose 125 mg In Sodium Chloride 0.9% 100 ml @ 100 mls/hr IVPB DAILY [facility] Rx#:[id number] Output: Urine 3564 2967 1900 Other: Voiding Method Indwelling Catheter Indwelling Catheter Indwelling Catheter - Exam Physical Exam: Revealed a 62-year-old female in no distress. Slightly confused but improving compared to the last couple of days. Head: Atraumatic, normocephalic. HEENT:[Neck is supple.] [No neck masses.] [No thyromegaly.] [No JVD.] Dry mucous membranes noted, PERRLA, EOMI, no icterus. Chest: [Diminished breath sounds at the bases, no crackles or rhonchi or wheezes.] Cardiac Exam: [Normal S1 and S2, no S3 gallop, no murmur.] Abdomen: [Soft, nontender, no megaly, no rebound, no guarding, normal bowel sounds.] Extremities: [No clubbing, no edema, no cyanosis.] Good pulses noted bilaterally in upper and lower extremities. Neurological Exam: Awake, minimal confusion and disorientation, new the name of the president, did not know the year. New were she was. Musculoskeletal: Good muscle strength bilaterally. Lymphatics: No lymphadenopathy. Psychiatric: Awake, blunt affect, improved mental status. - Labs CBC & Chem 7: 04/24/18 04:58 04/24/18 04:58 Labs: Abnormal Lab Results - Last 24 Hours (Table) 04/24/18 04/24/18 Range/Units 04:58 04:58 RBC 2.98 L (3.80-5.40) m/uL Hgb 8.6 L (11.4-16.0) gm/dL Hct 28.0 L (34.0-46.0) % MCHC 30.9 L (31.0-37.0) g/dL Chloride 108 H (98-107) mmol/L Carbon Dioxide 31 H (22-30) mmol/L BUN 36 H (7-17) mg/dL Creatinine 1.13 H (0.52-1.04) mg/dL Glucose 117 H (74-99) mg/dL Microbiology - Last 24 Hours (Table) 04/22/18 08:30 Blood Culture - Preliminary Blood No Growth after 48 hours 04/23/18 01:45 Urine Culture - Final Urine,Catheterized 04/23/18 01:49 Blood Culture - Preliminary Blood No Growth after 24 hours Assessment and Plan Assessment: Impression: 1 altered mental status, most likely secondary to metabolic encephalopathy related to her acute kidney injury and compounded by the fact that the patient has been on narcotics. 2 chronic pain syndrome, patient is on morphine and other narcotics for pain control. 3 acute hyperkalemia secondary to acute kidney injury and secondary to lisinopril and Aldactone. 4 history of coronary artery disease and previous stents placement, history of ischemic cardiomyopathy. 5 acute metabolic acidosis secondary to acute kidney injury and acute renal failure. 6 history of peripheral vessel occlusive disease involving lower extremities 7 history of hypertension, 8 history of obstructive sleep apnea syndrome 9 history of previous SD and stents placement 10 history of Tarlov cyst disease and chronic low back pain. 11 acute rhabdomyolysis,, resolved 12 acute hypoxic respiratory failure secondary to fluid overload and some component of pulmonary edema secondary to diastolic dysfunction. But mostly related to the fact that the patient received a significant amount of fluids within a short period of time. Patient is now on high flow nasal cannula, plan to transition her to a normal nasal cannula in the next 24 hours. 13 possible sepsis, likely secondary to urinary tract infection, cultures are negative so far, hence will discontinue vancomycin. 14 atrial fibrillation with RVR, paroxysmal, presently patient is in normal sinus rhythm. Being addressed by cardiology. Recommendation: Continue to monitor the patient in the ICU, off bicarb drip, off vancomycin, continue diuretics, continue high flow nasal cannula for now, continue the rest of the antibiotics as ordered, discussed and reviewed with the patient and her the improvement noted in the last 2 days, and she is clearly still quite ill, and she has many complex issues as noted above all being addressed by me and by many other consultants on the case. We'll continue to follow. Time with Patient: Less than 30
[2018-04-25] MEDS ORDERED: DEXTROSE 5% IN WATER 100 ML with AMIODARONE 150 MG IV ONE (00:25)
[2018-04-25] MEDS: AMIODARONE 450 MG in DEXTROSE 5% IN WATER 250 ML IV SCH ×8 (01:32→23:59)
[2018-04-25] MEDS ORDERED: LORazepam 0.5 MG TAB PO PRN ×2 (02:08→23:38)
[2018-04-25] MEDS: HEPARIN SODIUM,PORCINE 5,000 UNIT/ML 1 ML VIAL SQ SCH ×2 (02:51→08:47)
[2018-04-25] MEDS: IPRATROPIUM-ALBUTEROL 3 ML NEB INHALATION SCH ×5 (05:12→20:34)
[2018-04-25] MEDS ORDERED: VANCOMYCIN 1,500 MG in SODIUM CHLORIDE 0.9% 250 ML IVPB SCH (06:00)
[2018-04-25 06:09] LABS: Calcium 8.8 mg/dL (8.4-10.2); Potassium 4.6 mmol/L (3.5-5.1)
[2018-04-25 06:24] LABS: HCT 31.8 % (34.0-46.0); HGB 9.9 gm/dL (11.4-16.0); MCH 28.3 pg (25.0-35.0); MCHC 31.1 g/dL (31.0-37.0); Platelet Count 260 k/uL (150-450); RBC 3.49 m/uL (3.80-5.40); RDW 14.7 % (11.5-15.5); WBC 13.2 k/uL (3.8-10.6)
[2018-04-25] MEDS ORDERED: Magnesium Replacement Protocol 1 EACH MISC MISCELLANE PRN (07:16)
--- NOTE | 2018-04-25 07:45 | P.PN ---
Subjective Progress Note Date: 04/25/18 Principal diagnosis: Acute kidney injury This is a pleasant 62-year-old female patient who sees Dr. Sweet in the office on a regular basis with a past medical history significant for coronary artery disease and status post stenting of the right coronary artery in 2016 peripheral vascular disease involving the lower extremities and the patient is status post bilateral femoral arteries angioplasty, hypertension, and dyslipidemia, was brought by her to the emergency room with a change in mental status. The patient was in her usual state of health until Saturday when her noted that the patient was quite sleepy and she slept most of the day. Then her noted that the patient was confused and he was quite concerned about her and because of that he brought her to the emergency room. No indication of any symptoms of chest pain or chest discomfort, shortness of breath, or syncope. When the patient was brought to the emergency room she was found to be hypotensive with a systolic blood pressure in the 60s. Beside that the patient was noted to have acute renal failure with a creatinine of 10. Also she was found to have hyperkalemia with 6.8. The EKG showed sinus rhythm with Q wave in the inferior leads indicating old inferior AK as well as nonspecific changes in the lateral leads. 2 sets of troponin were checked and came in to be slightly abnormal. And below 1. She underwent an echocardiogram during this admission and that revealed normal LV function with mild MR and mild TR and moderate pulmonary hypertension. The patient had no symptoms of chest pain or chest discomfort or shortness of breath according to her . On follow-up with the patient today, April 252018, she is doing slightly better. Her mentation has improved significantly. She is not as confused as the patient presented to the hospital. Last night she went into A. fib with RVR and she was started on amiodarone IV which I am going to continue and switch her to amiodarone by mouth later on. Currently she is in normal sinus mechanism. Continues to denies any chest pain or chest discomfort. The creatinine is back to normal. Objective - Vital Signs Vital signs: Vital Signs Temp 98.6 F 04/25/18 00:00 Pulse 80 04/25/18 07:00 Resp 18 04/25/18 07:00 BP 109/52 04/25/18 07:00 Pulse Ox 99 04/25/18 07:00 Intake & Output 04/24/18 04/25/18 04/25/18 18:59 06:59 18:59 Intake Total 410 440 Output Total 2895 1100 Balance -2485 -660 Weight 94.1 kg Intake: IV 310 340 .9 kvo 210 90 Dextrose 5% in Water 100 150 ml @ 618 mls/hr IV .Q10M ONE with Amiodarone 150 mg Rx#:[id number] Piperacillin-Tazobactam 3 100 .375 gm In Sodium Chloride 0.9% 100 ml @ 25 mls/hr IVPB Q12HR [facility] Rx #:[id number] Piperacillin-Tazobactam 3 100 .375 gm In Sodium Chloride 0.9% 100 ml @ 25 mls/hr IVPB Q8H [facility] Rx#: [id number] Intake, IV Titration 100 Amount Sodium Ferric Gluconat- 100 Sucrose 125 mg In Sodium Chloride 0.9% 100 ml @ 100 mls/hr IVPB DAILY [facility] Rx#:[id number] Oral 100 Output: Urine 2895 1100 Other: Voiding Method Indwelling Catheter Indwelling Catheter - Constitutional General appearance: Present: no acute distress - Respiratory Respiratory: bilateral: CTA - Cardiovascular Rhythm: regular Heart sounds: normal: S1, S2 - Labs CBC & Chem 7: 04/25/18 05:12 04/25/18 05:12 Labs: Abnormal Lab Results - Last 24 Hours (Table) 04/25/18 04/25/18 Range/Units 05:12 05:12 WBC 13.2 H (3.8-10.6) k/uL RBC 3.49 L (3.80-5.40) m/uL Hgb 9.9 L (11.4-16.0) gm/dL Hct 31.8 L (34.0-46.0) % BUN 28 H (7-17) mg/dL Microbiology - Last 24 Hours (Table) 04/23/18 01:49 Blood Culture - Preliminary Blood No Growth after 48 hours 04/24/18 01:35 Gram Stain - Preliminary Sputum 04/22/18 08:30 Blood Culture - Preliminary Blood No Growth after 48 hours 04/23/18 01:45 Urine Culture - Final Urine,Catheterized Assessment and Plan Assessment: Assessment #1 change in mental status likely related to metabolic encephalopathy. That has improved #2 acute renal failure which is improving. This is likely related to hypotension #3 hyperkalemia secondary to acute renal failure #4 mildly abnormal cardiac enzymes likely related to acute renal failure. The patient had no symptoms of chest pain or discomfort. No evidence of ischemic ST or T-wave abnormalities #5 coronary artery disease and status post PCI of the RCA in 2016 #6 peripheral vascular disease and status post angioplasty of the lower extremities #7 hypertension #8 dyslipidemia #9 paroxysmal atrial fibrillation Plan #1 continue the current medical regimen. #2 continue amiodarone IV and switch to amiodarone by mouth later on #3 the creatinine is back to normal #4 avoid any nephrotoxic medications #5 consider anticoagulation for the atrial fibrillation
--- NOTE | 2018-04-25 07:52 | P.PN ---
Subjective Patient is seen in follow-up for acute kidney injury. Patient baseline creatinine is 1 and was elevated at 10 on admission. Renal function is improved significantly since admission. She is currently off all IV fluids. Oral intake is fair. She is nonoliguric. Vital signs are stable. General: The patient appeared well nourished and normally developed. HEENT: Head exam is unremarkable. Neck is without jugular venous distension. LUNGS: Lungs are clear to auscultation and percussion. Breath sounds decreased. HEART: Rate and Rhythm are regular. First and second heart sounds normal. No murmurs, rubs or gallops. ABDOMEN: Abdominal exam reveals normal bowel sounds. Non-tender and non- distended. No evidence of peritonitis. EXTREMITITES: No clubbing, cyanosis, or edema. Objective - Vital Signs Vital signs: Vital Signs Temp 98.6 F 04/25/18 00:00 Pulse 80 04/25/18 07:00 Resp 18 04/25/18 07:00 BP 109/52 04/25/18 07:00 Pulse Ox 99 04/25/18 07:00 Intake & Output 04/24/18 04/25/18 04/25/18 18:59 06:59 18:59 Intake Total 410 440 Output Total 2895 1100 Balance -2485 -660 Weight 94.1 kg Intake: IV 310 340 .9 kvo 210 90 Dextrose 5% in Water 100 150 ml @ 618 mls/hr IV .Q10M ONE with Amiodarone 150 mg Rx#:[id number] Piperacillin-Tazobactam 3 100 .375 gm In Sodium Chloride 0.9% 100 ml @ 25 mls/hr IVPB Q12HR [facility] Rx #:[id number] Piperacillin-Tazobactam 3 100 .375 gm In Sodium Chloride 0.9% 100 ml @ 25 mls/hr IVPB Q8H [facility] Rx#: [id number] Intake, IV Titration 100 Amount Sodium Ferric Gluconat- 100 Sucrose 125 mg In Sodium Chloride 0.9% 100 ml @ 100 mls/hr IVPB DAILY [facility] Rx#:[id number] Oral 100 Output: Urine 2895 1100 Other: Voiding Method Indwelling Catheter Indwelling Catheter - Labs CBC & Chem 7: 04/25/18 05:12 04/25/18 05:12 Labs: Abnormal Lab Results - Last 24 Hours (Table) 04/25/18 04/25/18 Range/Units 05:12 05:12 WBC 13.2 H (3.8-10.6) k/uL RBC 3.49 L (3.80-5.40) m/uL Hgb 9.9 L (11.4-16.0) gm/dL Hct 31.8 L (34.0-46.0) % BUN 28 H (7-17) mg/dL Microbiology - Last 24 Hours (Table) 04/23/18 01:49 Blood Culture - Preliminary Blood No Growth after 48 hours 04/24/18 01:35 Gram Stain - Preliminary Sputum 04/22/18 08:30 Blood Culture - Preliminary Blood No Growth after 48 hours 04/23/18 01:45 Urine Culture - Final Urine,Catheterized Assessment and Plan Plan: Assessment: 1. Acute kidney injury secondary to ATN secondary to hypotension and urinary retention. Creatinine 10.07 on admission and is down to 1.01 today. No hydronephrosis noted on renal ultrasound. 2. Hyperkalemia secondary to acute kidney injury, metabolic acidosis, use of lisinopril and Aldactone. Also component of urinary retention. Better. 3. Hyponatremia secondary to acute kidney injury. Resolved. 4. Metabolic acidosis secondary to acute kidney injury. Resolved. 5. Altered mental status related to use of opioids, particularly morphine in the setting of acute kidney injury. Better. 6. Volume overload secondary to IV fluids. Status post 40 mg IV Lasix on April 23 and yesterday. 7. Anemia. Iron deficiency noted. IV iron held due to infection. 8. Hypomagnesemia secondary to diuresis. 9. Septic shock secondary to pneumonia. Currently off vasopressors. 10. A. fib with RVR maintained on amiodarone drip. Plan: Hold off on Lasix for now - urine output has been 100 cc/hour overnight. Avoid nephrotoxins. Encouraged oral intake. Continue to monitor renal function and urine output. Magnesium being replaced. 2 g IV today.
[2018-04-25 08:18] LABS: Band Neutrophils % 2 %; Eosinophils # (M) 0.26 k/uL (0-0.7); Lymphocytes # (M) 1.85 k/uL (1.0-4.8); Metamyelocytes # (M) 0.13 k/uL (0); Metamyelocytes % 1 %; Monocytes # (M) 0.79 k/uL (0-1.0); Neutrophils % (M) 76 %; Nucleated Red Blood Cells 0 /100 WBC (0-0); Total Cells Counted 200
--- NOTE | 2018-04-25 08:26 | XR ---
EXAMINATION TYPE: XR chest 1V portable DATE OF EXAM: 04/25/2018 COMPARISON: Prior chest x-ray 04/24/2018 HISTORY: Shortness of breath TECHNIQUE: Single frontal view of the chest is obtained. FINDINGS: Heart size is stable. Retrocardiac density persists. Minimal patchy density right lung bas e. No evident pneumothorax. There are cardiac leads. Aorta is dense, possibly ectatic. IMPRESSION: Left greater than right lower lobe atelectasis versus pneumonia. Atherosclerotic changes as described to the thoracic aorta.
[2018-04-25] MEDS: PIPERACILLIN-TAZOBACTAM 3.375 GM in SODIUM CHLORIDE 0.9% 100 ML IVPB SCH ×2 (08:46→18:03)
[2018-04-25] MEDS: MAGNESIUM SULFATE-D5W PMX 1 GM in DEXTROSE/WATER 1 100ML.BAG IVPB SCH ×2 (08:46→10:03)
[2018-04-25] MEDS: POLYETHYLENE GLYCOL 3350 17 GM POWD.PACK PO SCH (08:46)
[2018-04-25] MEDS: SODIUM FERRIC GLUCONAT-SUCROSE 125 MG in SODIUM CHLORIDE 0.9% 100 ML IVPB SCH (08:47)
[2018-04-25] MEDS: ASPIRIN 81 MG PO SCH (08:47)
[2018-04-25] MEDS: METOPROLOL TARTRATE 25 MG TAB PO SCH ×2 (08:47→21:57)
--- NOTE | 2018-04-25 10:18 | P.PN ---
Subjective Progress Note Date: 04/25/18 Principal diagnosis: The patient is a 62-year-old female that was admitted with acute metabolic encephalopathy secondary to acute kidney injury and uremia as superimposed on chronic opioid use. On presentation the patient was confused CT of the head was negative for any acute intracranial pathology, she had gross electrolyte abnormalities with a creatinine of 10.1, potassium of 6.8 she was also noted to be hypotensive and was given aggressive IV fluid hydration, the patient subsequently went into acute respiratory failure with hypoxemia secondary to pulmonary edema superimposed on underlying septic shock due to left lower lobe pneumonia, she was placed on BiPAP and started on broad- spectrum antibiotics with IV vancomycin and Zosyn, patient was also started on IV pressors with Levophed to maintain a map greater than 65. The patient is on to have elevated troponins cardiology was consulted and determined that the elevated troponins were secondary to acute renal failure. EKG showed no evidence of ischemic ST or T wave abnormalities, echocardiogram ordered revealed normal LV function with mild MR and mild TR and moderate pulmonary hypertension. Nephrology Dr. Garcia was consulted The patient was started on isotonic bicarbonate drip @125 cc an hour, 10 units of regular insulin along with D50, all nephrotoxic agents were held including her lisinopril, diuretics were held including her HCTZ and Aldactone. It was thought that the patient's acute kidney injury secondary to ATN hypotension and urinary retention. While in the ICU the patient went into A. fib with RVR and was started on IV Cardizem and subsequently converted back to normal sinus rhythm and was transitioned to oral metoprolol, with repeated episode of Afib initiated on IV amiodaone Patient feeling better not as confused notes some improvement, currently on 8 L high flow nasal cannula. Afebrile for almot 48 hrs continues, eating almost 1/2 of her meals. Amiodarone drip inititated overnight due to repeated episode of Afib with RVR Patient having had adequate urine output creatinine trending down from 1.13 to 1 Objective - Vital Signs Vital signs: Vital Signs Temp 98.3 F 04/25/18 08:00 Pulse 75 04/25/18 10:00 Resp 18 04/25/18 10:00 BP 144/65 04/25/18 10:00 Pulse Ox 95 04/25/18 10:00 Intake & Output 04/24/18 04/25/1819 18:59 06:59 18:59 Intake Total 410 440 608.869 Output Total 2895 1100 230 Balance -2485 -660 378.869 Weight 94.1 kg Intake: IV 310 340 410 .9 kvo 210 90 60 Dextrose 5% in Water 100 150 ml @ 618 mls/hr IV .Q10M ONE with Amiodarone 150 mg Rx#:[id number] Magnesium Sulfate-D5w Pmx 100 1 gm In Dextrose/Water 1 100ml.bag @ 100 mls/hr IVPB Q1H [facility] Rx#: [id number] Magnesium Sulfate-D5w Pmx 100 1 gm In Dextrose/Water 1 100ml.bag @ 100 mls/hr IVPB Q1H [facility] Rx#: [id number] Piperacillin-Tazobactam 3 100 50 .375 gm In Sodium Chloride 0.9% 100 ml @ 25 mls/hr IVPB Q12HR [facility] Rx #:[id number] Piperacillin-Tazobactam 3 100 .375 gm In Sodium Chloride 0.9% 100 ml @ 25 mls/hr IVPB Q8H [facility] Rx#: [id number] Sodium Ferric Gluconat- 100 Sucrose 125 mg In Sodium Chloride 0.9% 100 ml @ 100 mls/hr IVPB DAILY [facility] Rx#:[id number] Intake, IV Titration 100 198.869 Amount Amiodarone 450 mg In 198.869 Dextrose 5% in Water 250 ml @ 1 MG/MIN 33.33 mls/ hr IV .Q7H31M [facility] Rx#: [id number] Sodium Ferric Gluconat- 100 Sucrose 125 mg In Sodium Chloride 0.9% 100 ml @ 100 mls/hr IVPB DAILY [facility] Rx#:[id number] Oral 100 Output: Urine 2895 1100 230 Other: Voiding Method Indwelling Catheter Indwelling Catheter Indwelling Catheter - Exam Constitutional: Mild respiratory distress, conversant, pleasant Eyes: Anicteric sclerae, moist conjunctiva, no lid-lag, PERRLA ENMT: NC/AT,Oropharynx clear, no erythema, exudates Neck:Supple, FROM, no masses, or JVD, No carotid bruits; No thyromegaly Lungs: Diminished in the bases, poor aeration poor effort, on 12 L high flow nasal cannula Cardiovascular: Regular rate and rhythm, No murmurs, gallops, or rubs no peripheral edema Abdominal: Soft Nontender, nom distended, no guarding, no rebound or rigidity, Normoactive bowel sounds No hepatomegaly, No splenomegaly, No palpable mass No abdominal wall hernia noted Skin: Normal temperature, tone, texture, turgor, No induration No subcutaneous nodules, No rash, lesions, No ulcers Extremities:No digital cyanosis No clubbing, Pedal pulses intact and symmetrical Radial pulses intact and symmetrical Normal gait and station, No calf tenderness Psychiatric: Alert and oriented to person, place and time, Appropriate affect Intact judgement Neuro: Muscles Strength 5/5 in all 4 extremities, Sensation to light touch grossly present throughout, Cranial nerves II-XII grossly intact. No focal sensory deficits - Labs CBC & Chem 7: 04/25/18 05:12 04/25/18 05:12 Labs: Abnormal Lab Results - Last 24 Hours (Table) 04/25/18 04/25/18 Range/Units 05:12 05:12 WBC 13.2 H (3.8-10.6) k/uL RBC 3.49 L (3.80-5.40) m/uL Hgb 9.9 L (11.4-16.0) gm/dL Hct 31.8 L (34.0-46.0) % Neutrophils # (Manual) 10.20 H (1.3-7.7) k/uL Metamyelocytes # (Man) 0.13 H (0) k/uL BUN 28 H (7-17) mg/dL Microbiology - Last 24 Hours (Table) 04/23/18 01:49 Blood Culture - Preliminary Blood No Growth after 48 hours 04/24/18 01:35 Gram Stain - Preliminary Sputum 04/22/18 08:30 Blood Culture - Preliminary Blood No Growth after 48 hours 04/23/18 01:45 Urine Culture - Final Urine,Catheterized Assessment and Plan (1) Septic shock Narrative/Plan: * Secondary to left lower lobe likely community-acquired pneumonia, sputum/ urine and blood cultures are pending * Blood pressure continues to maintain steady off IV pressors * Patient afebrile for almost 48 hrs no leukocytosis * Continue IV antibiotics with Zosyn, could probably transition to PO levaquin today Current Visit: Yes Status: Acute Code(s): A41.9 - SEPSIS, UNSPECIFIED ORGANISM; R65.21 - SEVERE SEPSIS WITH SEPTIC SHOCK SNOMED Code(s): 57625958 (2) Acute respiratory failure with hypoxemia Narrative/Plan: * Secondary to pneumonia superimposed on pulmonary edema * Respiratory status improved post Lasix * Patient on BiPAP overnight currently on 8 L nasal cannula * continue scheduled and when necessary DuoNeb breathing treatments * D-dimer was elevated likely secondary to sepsis, bilateral lower extremity Dopplers negative for DVT Current Visit: Yes Status: Acute Code(s): J96.01 - ACUTE RESPIRATORY FAILURE WITH HYPOXIA SNOMED Code(s): 459835549 (3) Pneumonia Narrative/Plan: * Treatment as above Current Visit: Yes Status: Acute Code(s): J18.9 - PNEUMONIA, UNSPECIFIED ORGANISM SNOMED Code(s): 762968497 (4) Atrial fibrillation with RVR Narrative/Plan: * Currently on IV amiodarone with plans to transition to oral amiodarone morning after having episodes of A. fib last night * currently on metoprolol * Ejection fraction normal possibly has diastolic dysfunction, previously in pulmonary edema * Patient with elevated [id number] score hence with indication for anticoagulation * We'll initiate the patient on eliquis 5mg PO BID Current Visit: Yes Status: Resolved Code(s): I48.91 - UNSPECIFIED ATRIAL FIBRILLATION SNOMED Code(s): 896930985193094 (5) Hyperkalemia Narrative/Plan: * Hyperkalemia improving down to 4.6 this morning Current Visit: Yes Status: Resolved Code(s): E87.5 - HYPERKALEMIA SNOMED Code(s): 47889443 (6) Acute kidney injury Narrative/Plan: * Secondary to ATN hypotension and urinary retention * Creatinine trending down to 1 from 1.15, patient having excellent urine output (plan to DC Choudhary catheter today) * Continue to hold nephrotoxic agents * Metabolic acidosis has resolved * Renal ultrasound showing possible vascular calcification medial aspect of the right kidney pole and mid pole, subsequent CT abdomen and pelvis showing nonobstructing punctate right renal calculus Current Visit: Yes Status: Resolved Code(s): N17.9 - ACUTE KIDNEY FAILURE, UNSPECIFIED SNOMED Code(s): 69994078 (7) Hypotension Narrative/Plan: * Multifactorial likely secondary to septic shock superimposed on dehydration Current Visit: Yes Status: Resolved Code(s): I95.9 - HYPOTENSION, UNSPECIFIED SNOMED Code(s): 11270441 (8) Rhabdomyolysis Current Visit: Yes Status: Resolved Code(s): M62.82 - RHABDOMYOLYSIS SNOMED Code(s): 447981251 (9) Presence of stent in coronary artery in patient with coronary artery disease Current Visit: Yes Status: Chronic Code(s): I25.10 - ATHSCL HEART DISEASE OF [place] CORONARY ARTERY W/O ANG PCTRS; Z95.5 - PRESENCE OF CORONARY ANGIOPLASTY IMPLANT AND GRAFT SNOMED Code(s): 579201629 (10) Hyperlipemia Current Visit: No Status: Chronic Code(s): E78.5 - HYPERLIPIDEMIA, UNSPECIFIED SNOMED Code(s): 53665351 (11) PAD (peripheral artery disease) Current Visit: Yes Status: Chronic Code(s): I73.9 - PERIPHERAL VASCULAR DISEASE, UNSPECIFIED SNOMED Code(s): 761536008 (12) Metabolic encephalopathy Narrative/Plan: * Resolved likely secondary to acute kidney injury versus sepsis superimposed on chronic narcotic use Current Visit: Yes Status: Resolved Code(s): G93.41 - METABOLIC ENCEPHALOPATHY SNOMED Code(s): 68647049 (13) Constipation Narrative/Plan: * Initiated MiraLAX therapy Current Visit: Yes Status: Acute Code(s): K59.00 - CONSTIPATION, UNSPECIFIED SNOMED Code(s): 70786568 (14) Iron deficiency anemia Narrative/Plan: * Hemoglobin 8.6 continue to monitor * We'll need iron supplementation on discharge after patient's sepsis is resolved Current Visit: Yes Status: Acute Code(s): D50.9 - IRON DEFICIENCY ANEMIA, UNSPECIFIED SNOMED Code(s): 37557954 Plan: Anticipated discharge 1-2 days * Patient is elected to proceed with physical therapy at [facility] * Continue current treatment plan, plan to wean oxygen as tolerated
--- NOTE | 2018-04-25 13:35 | P.PN ---
Subjective Progress Note Date: 04/25/18 Principal diagnosis: Acute metabolic encephalopathy and acute kidney injury. This is a 62-year-old female with history of coronary artery disease, NM, previous stents, history of GERD, history of upper GI bleeding, hypertension, obstructive sleep apnea syndrome, and no previous history of documented kidney disease. Patient had previous documented peripheral vessel occlusive disease involving lower extremities, and she is also known to have history of ischemic cardiomyopathy. Patient has been doing quite well according to the , yesterday she was noted to be quite sleepy, and she slept most of the day. Early this morning, the patient was noted to be confused. was quite concerned, she is known to have history of tonic back pain, and she is mostly on morphine as well as hydrocodone on outpatient basis. She does not take any nonsteroidal anti-inflammatory drugs. Patient was brought into the ER with the chief complaint of confusion and mental status change. She was found to have hypotension with blood pressure systolic in the 50s. Patient was given Narcan, she was also given fluid boluses about 2 L. Her kidney functioning came back quite abnormal with creatinine of chest over 10, and her potassium was 6.8. Patient did receive calcium, IV insulin, D50, 2 A of bicarb, and she was placed on a bicarb drip. Patient was admitted to the ICU, and this consult was initiated. Choudhary catheter was placed and it showed good urine output, roughly about 500 mL were noted in the Choudhary catheter bag. Normally patient is on diuretics including Aldactone, she is also on lisinopril for hypertension and underlying coronary artery disease. No previous history of kidney injury. No previous history of documented kidney disease. Ultrasound of the kidneys showed no evidence of obstructive uropathy. She was seen by nephrology in consultation, and felt that her acute kidney injury is secondary to acute tubular necrosis from hypotension. And her hyperkalemia is related to her acute kidney injury worsened by the fact that the patient is on lisinopril and Aldactone. And it was felt that her mental status is likely related to metabolic encephalopathy, could also be related to the fact that the patient is chronically on opioids particularly morphine. Her CT of the brain came back negative. During my evaluation, the patient seemed confused, she looked clinically dehydrated, she denied any headache, no blurred vision, no dizziness. She felt generally weak. Denied any nausea vomiting abdominal pain , she has chronic low back pain. Denies any melena or hematemesis, no dysuria and no frequency no urgency. Patient was noted to have borderline blood pressure, was not on any pressors at the time she presented to the ICU. Patient was getting more fluid boluses shortly after I saw her. Patient was reevaluated today on 04/23/2018, she seems to be doing much better compared to how she felt yesterday. Mental status remains marginal, but again significantly improved compared to yesterday. Patient developed a brief episode of atrial fibrillation with RVR earlier this morning, she was on a small dose of norepinephrine, but since the norepinephrine was discontinued, she is presently now in sinus rhythm. Her kidney functioning demonstrated a significant improvement, creatinine is now down to 2.95. And her potassium is 5.2. Her troponin is also down to 0.322. Her creatinine was around 10 on admission. Patient remains on a sodium bicarb drip, she received significant amount of fluids overnight, and she also had a significant amount of urine output in the last 24 hours. Again patient is doing much better today compared to yesterday. Denies any cough no wheezing no shortness of breath. Chest x- ray was normal on admission, presently she has what seems to be left lower lobe atelectasis, possibly a small left pleural effusion, strongly doubt pneumonia. This is a new finding since admission. It could very well be related to the significant amount of fluid that the patient was given in the last 12 hours. She was seen by cardiology, and felt that her troponin elevation is nonspecific , hence no need for further cardiac intervention at this point, but we will address her episodes of atrial fibrillation with RVR. During the night, patient developed findings of pulmonary edema because of significant amount of fluids given, however he shouldn't responded well to Lasix, she was shortly on BiPAP, and now she is transitioned to a high flow nasal cannula, presently at 10 L, and she is saturating quite well. She did have a temp of 103 last night, and she was started on IV antibiotics. Cultures including blood cultures and urine cultures are negative so far. Patient was reevaluated today on 04/24/2018, patient is feeling better, she is off pressors, not requiring any norepinephrine, she is off Cardizem and she is presently in normal sinus rhythm. Patient converted to normal sinus rhythm last night, maintained on 10 L high flow nasal cannula, O2 saturation is marginal. Patient was given a dose of Lasix earlier today, and her chest x-ray continues to show mild pulmonary edema. Her renal functioning is getting much better. She presented initially with creatinine of 10, and today her creatinine is 1.13. BUN is 36. CBC is relatively normal. I believe the patient will even improve further with the Lasix and we will be able to titrate down her FiO2 to a lower FiO2. Patient was reevaluated today on 04/25/2018, patient is improving, remains confused, but the degree of confusion is much improved compared to baseline. Patient is not requiring any pressors, she was placed on amiodarone last night for atrial fibrillation and RVR, but presently in normal sinus rhythm. Patient remains on amiodarone, all her labs seem to be significantly better. Patient is doing great compared to how she felt the last few days. She has good oral intake, she is nonoliguric, and her renal functioning is basically almost normal. WBC count is 13.2 hemoglobin is 9.9. Electrolytes are relatively normal. BUN is 28 creatinine 1.01. Remember this lady came in with a creatinine of around 10. Pulmonary-torres, patient developed pulmonary edema, continues to have minimal interstitial edema, but significantly improved, strongly doubt pneumonia. Remains on antibiotics. Cultures so far remain negative. Objective - Vital Signs Vital signs: Vital Signs Temp 98.4 F 04/25/18 12:00 Pulse 79 04/25/18 13:00 Resp 14 04/25/18 13:00 BP 133/58 04/25/18 13:00 Pulse Ox 95 04/25/18 13:00 Intake & Output 04/24/18 04/25/18 04/25/18 18:59 06:59 18:59 Intake Total 410 440 668.869 Output Total 2895 1100 780 Balance -2485 -660 -111.131 Weight 94.1 kg Intake: IV 310 340 470 .9 kvo 210 90 120 Dextrose 5% in Water 100 150 ml @ 618 mls/hr IV .Q10M ONE with Amiodarone 150 mg Rx#:[id number] Magnesium Sulfate-D5w Pmx 100 1 gm In Dextrose/Water 1 100ml.bag @ 100 mls/hr IVPB Q1H [facility] Rx#: [id number] Magnesium Sulfate-D5w Pmx 100 1 gm In Dextrose/Water 1 100ml.bag @ 100 mls/hr IVPB Q1H [facility] Rx#: [id number] Piperacillin-Tazobactam 3 100 50 .375 gm In Sodium Chloride 0.9% 100 ml @ 25 mls/hr IVPB Q12HR [facility] Rx #:[id number] Piperacillin-Tazobactam 3 100 .375 gm In Sodium Chloride 0.9% 100 ml @ 25 mls/hr IVPB Q8H [facility] Rx#: [id number] Sodium Ferric Gluconat- 100 Sucrose 125 mg In Sodium Chloride 0.9% 100 ml @ 100 mls/hr IVPB DAILY [facility] Rx#:[id number] Intake, IV Titration 100 198.869 Amount Amiodarone 450 mg In 198.869 Dextrose 5% in Water 250 ml @ 1 MG/MIN 33.33 mls/ hr IV .Q7H31M [facility] Rx#: [id number] Sodium Ferric Gluconat- 100 Sucrose 125 mg In Sodium Chloride 0.9% 100 ml @ 100 mls/hr IVPB DAILY [facility] Rx#:[id number] Oral 100 Output: Urine 2895 1100 780 Other: Voiding Method Indwelling Catheter Indwelling Catheter Indwelling Catheter - Exam Physical Exam: Revealed a 62-year-old female in no distress. New the place, the year, did not know the month. Head: Atraumatic, normocephalic. HEENT:[Neck is supple.] [No neck masses.] [No thyromegaly.] [No JVD.] Dry mucous membranes noted, PERRLA, EOMI, no icterus. Chest: [Diminished breath sounds at the bases, no crackles or rhonchi or wheezes.] Cardiac Exam: [Normal S1 and S2, no S3 gallop, no murmur.] Abdomen: [Soft, nontender, no megaly, no rebound, no guarding, normal bowel sounds.] Extremities: [No clubbing, no edema, no cyanosis.] Good pulses noted bilaterally in upper and lower extremities. Neurological Exam: Awake, minimal confusion and disorientation, new the name of the president, he was a year and the place but not the month. Musculoskeletal: Good muscle strength bilaterally. Lymphatics: No lymphadenopathy. Psychiatric: Awake, blunt affect, improved mental status. - Labs CBC & Chem 7: 04/25/18 05:12 04/25/18 05:12 Labs: Abnormal Lab Results - Last 24 Hours (Table) 04/25/18 04/25/18 Range/Units 05:12 05:12 WBC 13.2 H (3.8-10.6) k/uL RBC 3.49 L (3.80-5.40) m/uL Hgb 9.9 L (11.4-16.0) gm/dL Hct 31.8 L (34.0-46.0) % Neutrophils # (Manual) 10.20 H (1.3-7.7) k/uL Metamyelocytes # (Man) 0.13 H (0) k/uL BUN 28 H (7-17) mg/dL Microbiology - Last 24 Hours (Table) 04/22/18 08:30 Blood Culture - Preliminary Blood No Growth after 72 hours 04/23/18 01:49 Blood Culture - Preliminary Blood No Growth after 48 hours 04/24/18 01:35 Gram Stain - Preliminary Sputum 04/23/18 01:45 Urine Culture - Final Urine,Catheterized Assessment and Plan Assessment: Impression: 1 altered mental status, most likely secondary to metabolic encephalopathy related to her acute kidney injury and compounded by the fact that the patient has been on narcotics. 2 chronic pain syndrome, patient is on morphine and other narcotics for pain control. 3 acute hyperkalemia secondary to acute kidney injury and secondary to lisinopril and Aldactone. 4 history of coronary artery disease and previous stents placement, history of ischemic cardiomyopathy. 5 acute metabolic acidosis secondary to acute kidney injury and acute renal failure. 6 history of peripheral vessel occlusive disease involving lower extremities 7 history of hypertension, 8 history of obstructive sleep apnea syndrome 9 history of previous NM and stents placement 10 history of Tarlov cyst disease and chronic low back pain. 11 acute rhabdomyolysis,, resolved 12 acute hypoxic respiratory failure secondary to fluid overload and some component of pulmonary edema secondary to diastolic dysfunction. But mostly related to the fact that the patient received a significant amount of fluids within a short period of time. Patient is now on 5 L nasal cannula at present. 13 possible sepsis, all cultures remain negative so far. 14 atrial fibrillation with RVR, paroxysmal, presently patient is in normal sinus rhythm. Presently on amiodarone. Recommendation: Discussed and reviewed all her labs, chest x-ray, medications, again the patient has made a significant improvement over the last couple of days, she could potentially be transferred out of the ICU today to a monitor bed on selective, continues to have issues related to her interstitial edema, A. fib/RVR, and again that being addressed by cardiology. We'll continue to follow in the ICU, however once the patient is on a cardiac floor, will see the patient on when necessary basis. Patient remains quite ill, and not quite ready for any discharge planning. Time with Patient: Less than 30
[2018-04-25] MEDS: APIXABAN 5 MG TAB PO SCH (21:58)
[2018-04-25] MEDS: AMIODARONE 200 MG TAB PO SCH (21:58)
[2018-04-26] MEDS: PIPERACILLIN-TAZOBACTAM 3.375 GM in SODIUM CHLORIDE 0.9% 100 ML IVPB SCH (00:09)
[2018-04-26] MEDS: IPRATROPIUM-ALBUTEROL 3 ML NEB INHALATION SCH ×3 (00:25→08:16)
[2018-04-26 04:29] VITALS: BP 114/67
[2018-04-26 05:52] LABS: HCT 33.9 % (34.0-46.0); HGB 10.3 gm/dL (11.4-16.0); Hypochromasia Moderate; MCH 28.8 pg (25.0-35.0); MCHC 30.3 g/dL (31.0-37.0); Platelet Count 269 k/uL (150-450); RBC 3.57 m/uL (3.80-5.40); RDW 14.5 % (11.5-15.5)
--- NOTE | 2018-04-26 06:12 | XR ---
EXAMINATION TYPE: XR chest 1V portable DATE OF EXAM: 04/26/2018 HISTORY: SOB. REFERENCE: Previous study dated 04/25/2018. FINDINGS: Heart size is within normal limits. There is improved aeration at the left lung base. No de finite pleural fluid is seen. IMPRESSION: IMPROVED AERATION, LEFT LUNG BASE.
[2018-04-26 06:15] LABS: Calcium 8.7 mg/dL (8.4-10.2); Phosphorus 2.8 mg/dL (2.5-4.5)
--- NOTE | 2018-04-26 07:25 | P.PN ---
Subjective Progress Note Date: 04/26/18 Principal diagnosis: Acute kidney injury This is a pleasant 62-year-old female patient who sees Dr. Sweet in the office on a regular basis with a past medical history significant for coronary artery disease and status post stenting of the right coronary artery in 2016 peripheral vascular disease involving the lower extremities and the patient is status post bilateral femoral arteries angioplasty, hypertension, and dyslipidemia, was brought by her to the emergency room with a change in mental status. The patient was in her usual state of health until Saturday when her noted that the patient was quite sleepy and she slept most of the day. Then her noted that the patient was confused and he was quite concerned about her and because of that he brought her to the emergency room. No indication of any symptoms of chest pain or chest discomfort, shortness of breath, or syncope. When the patient was brought to the emergency room she was found to be hypotensive with a systolic blood pressure in the 60s. Beside that the patient was noted to have acute renal failure with a creatinine of 10. Also she was found to have hyperkalemia with 6.8. The EKG showed sinus rhythm with Q wave in the inferior leads indicating old inferior AL as well as nonspecific changes in the lateral leads. 2 sets of troponin were checked and came in to be slightly abnormal. And below 1. She underwent an echocardiogram during this admission and that revealed normal LV function with mild MR and mild TR and moderate pulmonary hypertension. The patient had no symptoms of chest pain or chest discomfort or shortness of breath according to her . I'll follow-up with the patient today, 04/26/2018, the patient is doing much better clinically. Her mentation has improved significantly. She continues to be asymptomatic. She continues to be in normal sinus mechanism. Yesterday she was started on oral anticoagulation with Eliquis. From the cardiac standpoint, she can be discharged home. Objective - Vital Signs Vital signs: Vital Signs Temp 98.6 F 04/26/18 00:00 Pulse 67 04/26/18 04:21 Resp 18 04/26/18 04:00 BP 114/67 04/26/18 00:00 Pulse Ox 92 L 04/26/18 04:00 Intake & Output 04/25/18 04/26/18 04/26/18 18:59 06:59 18:59 Intake Total 964.354 260 Output Total 1295 975 Balance -330.326 715 Weight 91.5 kg Intake: IV 590 260 .9 kvo 240 60 Magnesium Sulfate-D5w Pmx 100 1 gm In Dextrose/Water 1 100ml.bag @ 100 mls/hr IVPB Q1H [facility] Rx#: [id number] Magnesium Sulfate-D5w Pmx 100 1 gm In Dextrose/Water 1 100ml.bag @ 100 mls/hr IVPB Q1H [facility] Rx#: [id number] Piperacillin-Tazobactam 3 50 200 .375 gm In Sodium Chloride 0.9% 100 ml @ 25 mls/hr IVPB Q12HR [facility] Rx #:[id number] Sodium Ferric Gluconat- 100 Sucrose 125 mg In Sodium Chloride 0.9% 100 ml @ 100 mls/hr IVPB DAILY [facility] Rx#:[id number] Intake, IV Titration 374.354 Amount Amiodarone 450 mg In 374.354 Dextrose 5% in Water 250 ml @ 1 MG/MIN 33.33 mls/ hr IV .Q7H31M [facility] Rx#: [id number] Output: Urine 1295 975 Other: Voiding Method Indwelling Catheter Indwelling Catheter # Bowel Movements 1 - Constitutional General appearance: Present: no acute distress - Respiratory Respiratory: bilateral: CTA - Cardiovascular Rhythm: regular Heart sounds: normal: S1, S2 - Labs CBC & Chem 7: 04/26/18 05:11 04/26/18 05:11 Labs: Abnormal Lab Results - Last 24 Hours (Table) 04/25/18 04/26/18 04/26/18 Range/Units 05:12 05:11 05:11 WBC 13.0 H (3.8-10.6) k/uL RBC 3.57 L (3.80-5.40) m/uL Hgb 10.3 L (11.4-16.0) gm/dL Hct 33.9 L (34.0-46.0) % MCHC 30.3 L (31.0-37.0) g/dL Neutrophils # (Manual) 10.20 H (1.3-7.7) k/uL Metamyelocytes # (Man) 0.13 H (0) k/uL BUN 27 H (7-17) mg/dL Creatinine 1.06 H (0.52-1.04) mg/dL Microbiology - Last 24 Hours (Table) 04/23/18 01:49 Blood Culture - Preliminary Blood No Growth after 72 hours 04/24/18 01:35 Gram Stain - Preliminary Sputum Sputum Culture - Preliminary Gram Neg Bacilli 04/22/18 08:30 Blood Culture - Preliminary Blood No Growth after 72 hours Assessment and Plan Assessment: Assessment #1 change in mental status likely related to metabolic encephalopathy. That has improved #2 acute renal failure which is improving. This is likely related to hypotension #3 hyperkalemia secondary to acute renal failure #4 mildly abnormal cardiac enzymes likely related to acute renal failure. The patient had no symptoms of chest pain or discomfort. No evidence of ischemic ST or T-wave abnormalities #5 coronary artery disease and status post PCI of the RCA in 2016 #6 peripheral vascular disease and status post angioplasty of the lower extremities #7 hypertension #8 dyslipidemia #9 paroxysmal atrial fibrillation Plan #1 continue the current medical regimen. #2 continue amiodarone by mouth #3 continue oral anticoagulation #4 from the cardiac standpoint, she can be discharged home
[2018-04-26] MEDS ORDERED: LEVOFLOXACIN 750 MG TAB PO STA (09:29)
[2018-04-26] MEDS: SODIUM FERRIC GLUCONAT-SUCROSE 125 MG in SODIUM CHLORIDE 0.9% 100 ML IVPB SCH (10:01)
[2018-04-26] MEDS: APIXABAN 5 MG TAB PO SCH (10:01)
[2018-04-26] MEDS: POLYETHYLENE GLYCOL 3350 17 GM POWD.PACK PO SCH (10:01)
[2018-04-26] MEDS: AMIODARONE 200 MG TAB PO SCH (10:01)
[2018-04-26] MEDS: ASPIRIN 81 MG PO SCH (10:01)
[2018-04-26] MEDS: METOPROLOL TARTRATE 25 MG TAB PO SCH (10:01)
[2018-04-26 10:56] VITALS: PULSE 70; RESP 19; TEMP 98.2
--- NOTE | 2018-04-26 11:54 | P.PN ---
Subjective Progress Note Date: 04/26/18 Seen and examined for the follow-up of acute kidney injury. Sitting comfortable in the bed. Choudhary catheter has been removed. Emptying bladder. No nausea vomiting or diarrhea. Objective - Vital Signs Vital signs: Vital Signs Temp 98.6 F 04/26/18 00:00 Pulse 75 04/26/18 08:32 Resp 18 04/26/18 04:00 BP 114/67 04/26/18 00:00 Pulse Ox 92 L 04/26/18 04:00 Intake & Output 04/25/18 04/26/18 04/26/18 18:59 06:59 18:59 Intake Total 964.354 260 0 Output Total 1295 975 Balance -330.646 -715 0 Weight 91.5 kg Intake: IV 590 260 .9 kvo 240 60 Magnesium Sulfate-D5w Pmx 100 1 gm In Dextrose/Water 1 100ml.bag @ 100 mls/hr IVPB Q1H [facility] Rx#: [id number] Magnesium Sulfate-D5w Pmx 100 1 gm In Dextrose/Water 1 100ml.bag @ 100 mls/hr IVPB Q1H [facility] Rx#: [id number] Piperacillin-Tazobactam 3 50 200 .375 gm In Sodium Chloride 0.9% 100 ml @ 25 mls/hr IVPB Q12HR [facility] Rx #:[id number] Sodium Ferric Gluconat- 100 Sucrose 125 mg In Sodium Chloride 0.9% 100 ml @ 100 mls/hr IVPB DAILY [facility] Rx#:[id number] Intake, IV Titration 374.354 Amount Amiodarone 450 mg In 374.354 Dextrose 5% in Water 250 ml @ 1 MG/MIN 33.33 mls/ hr IV .Q7H31M [facility] Rx#: [id number] Oral 0 Output: Urine 1295 975 Other: Voiding Method Indwelling Catheter Indwelling Catheter # Bowel Movements 1 - Exam No acute distress. S1-S2 heard Lungs Clear No edema - Labs CBC & Chem 7: 04/26/18 05:11 04/26/18 05:11 Labs: Abnormal Lab Results - Last 24 Hours (Table) 04/26/18 04/26/18 Range/Units 05:11 05:11 WBC 13.0 H (3.8-10.6) k/uL RBC 3.57 L (3.80-5.40) m/uL Hgb 10.3 L (11.4-16.0) gm/dL Hct 33.9 L (34.0-46.0) % MCHC 30.3 L (31.0-37.0) g/dL BUN 27 H (7-17) mg/dL Creatinine 1.06 H (0.52-1.04) mg/dL Microbiology - Last 24 Hours (Table) 04/23/18 01:49 Blood Culture - Preliminary Blood No Growth after 72 hours 04/24/18 01:35 Gram Stain - Preliminary Sputum Sputum Culture - Preliminary Gram Neg Bacilli 04/22/18 08:30 Blood Culture - Preliminary Blood No Growth after 72 hours Assessment and Plan Assessment: #1 acute kidney injury secondary to urinary retention and hemodynamic ATN. Creatinine back to baseline. #2 hyperkalemia secondary to UMAIR and obstruction, resolved. #3 metabolic acidosis resolved #4 urinary retention status post Choudhary currently removed. Plan: #1 creatinine back to baseline. Stable from nephrology point of view for discharge to be followed up in the office in 1-2 weeks. #2 advised about double voiding #3 void nephrotoxic agents and hypotensive episodes
--- NOTE | 2018-04-26 11:54 | P.DS ---
Providers Date of admission: 04/22/18 12:08 Expected date of discharge: 04/26/18 Attending physician: Braydon Lynch MD Consults: 04/22/18 10:15 Consult Physician Urgent Consulting Provider: Rad Garcia Consult Reason/Comments: Acute renal failure Do you want consulting provider notified?: Yes 04/22/18 10:59 Consult Physician Routine Consulting Provider: Min Sweet Consult Reason/Comments: elevated troponin Do you want consulting provider notified?: Yes 04/22/18 12:12 Consult Physician Routine Consulting Provider: Rad Garcia Consult Reason/Comments: elevated bun/cr Do you want consulting provider notified?: Already Contacted 04/22/18 15:03 Consult Physician Stat Consulting Provider: Nay Duarte Consult Reason/Comments: icu management Do you want consulting provider notified?: Already Contacted Primary care physician: Kaitlin Lawrence MD - Discharge Diagnosis(es) (1) Septic shock Current Visit: Yes Status: Acute (2) Acute respiratory failure with hypoxemia Current Visit: Yes Status: Acute (3) Pneumonia Current Visit: Yes Status: Acute (4) Atrial fibrillation with RVR Current Visit: Yes Status: Resolved (5) Hyperkalemia Current Visit: Yes Status: Resolved (6) Acute kidney injury Current Visit: Yes Status: Resolved (7) Hypotension Current Visit: Yes Status: Resolved (8) Rhabdomyolysis Current Visit: Yes Status: Resolved (9) Presence of stent in coronary artery in patient with coronary artery disease Current Visit: Yes Status: Chronic (10) Hyperlipemia Current Visit: No Status: Chronic (11) PAD (peripheral artery disease) Current Visit: Yes Status: Chronic (12) Metabolic encephalopathy Current Visit: Yes Status: Resolved (13) Constipation Current Visit: Yes Status: Acute (14) Iron deficiency anemia Current Visit: Yes Status: Acute Hospital Course: The patient is a 62-year-old female that was admitted with acute metabolic encephalopathy secondary to acute kidney injury and uremia as superimposed on chronic opioid use. On presentation the patient was confused CT of the head was negative for any acute intracranial pathology, she had gross electrolyte abnormalities with a creatinine of 10.1, potassium of 6.8 she was also noted to be hypotensive and was given aggressive IV fluid hydration, the patient subsequently went into acute respiratory failure with hypoxemia secondary to pulmonary edema superimposed on underlying septic shock due to left lower lobe pneumonia, she was placed on BiPAP and started on broad- spectrum antibiotics with IV vancomycin and Zosyn liter transitioned to oral Levaquin, patient was also started on IV pressors with Levophed to maintain a map greater than 65. The patient is on to have elevated troponins cardiology was consulted and determined that the elevated troponins were secondary to acute renal failure. EKG showed no evidence of ischemic ST or T wave abnormalities, echocardiogram ordered revealed normal LV function with mild MR and mild TR and moderate pulmonary hypertension. Nephrology Dr. Garcia was consulted The patient was started on isotonic bicarbonate drip @125 cc an hour, 10 units of regular insulin along with D50, all nephrotoxic agents were held including her lisinopril, diuretics were held including her HCTZ and Aldactone. It was thought that the patient's acute kidney injury secondary to ATN hypotension and urinary retention and her creatinine trended down to 1 by the end of her hospitalization. While in the ICU the patient went into A. fib with RVR and was started on IV Cardizem and subsequently converted back to normal sinus rhythm and was transitioned to oral metoprolol, with repeated episode of Afib initiated on IV amiodaone N subsequently transitioned to amiodarone 200 mg PO BID and initiated on anticoagulation with eliquis 5mg PO BID. the patient was seen by physical therapy and her strength gradually increased requiring minimal assistance with pretty good ambulation by time of discharge. She was subsequently discharged home in stable condition. This discharge process took approximately 35 minutes Focused exam Constitutional: No acute distress, conversant, pleasant Eyes: Anicteric sclerae, moist conjunctiva, no lid-lag, PERRLA ENMT: NC/AT,Oropharynx clear, no erythema, exudates Neck:Supple, FROM, no masses, or JVD, No carotid bruits; No thyromegaly Lungs: Clear to auscultation diminished in the bases left greater than right, Clear to percussion, Normal respiratory effort, no accessory muscle use Cardiovascular: Heart regular in rate and rhythm, No murmurs, gallops, or rubs no peripheral edema Abdominal: Soft Nontender, nom distended, no guarding, no rebound or rigidity, Normoactive bowel sounds No hepatomegaly, No splenomegaly, No palpable mass No abdominal wall hernia noted Skin: Normal temperature, tone, texture, turgor, No induration No subcutaneous nodules, No rash, lesions, No ulcers Extremities:No digital cyanosis No clubbing, Pedal pulses intact and symmetrical Radial pulses intact and symmetrical Normal gait and station, No calf tenderness Psychiatric: Alert and oriented to person, place and time, Appropriate affect Intact judgement Neuro: Muscles Strength 5/5 in all 4 extremities, Sensation to light touch grossly present throughout, Cranial nerves II-XII grossly intact. No focal sensory deficits Patient Condition at Discharge: Good Plan - Discharge Summary Discharge Rx Participant: Yes New Discharge Prescriptions: New Amiodarone [Cordarone] 200 mg PO BID #60 tab Apixaban [Eliquis] 5 mg PO BID #60 tab Levofloxacin [Levaquin] 750 mg PO DAILY #5 tab Continue Morphine Sulfate [Tomasa] 50 mg PO Q12H HYDROcodone/APAP 10-325MG [[place] 10-325] 1 tab PO Q12HR PRN PRN Reason: Pain Nitroglycerin Sl Tabs [Nitrostat] 0.4 mg SUBLINGUAL Q5M PRN #25 tab PRN Reason: Chest Pain Prasugrel [Effient] 10 mg PO DAILY #30 tab Metoprolol Tartrate [Lopressor] 25 mg PO BID #60 tablet Atorvastatin [Lipitor] 40 mg PO HS #30 tablet Aspirin 325 mg PO DAILY #30 tab PARoxetine HCL [Paxil] 30 mg PO DAILY Discontinued amLODIPine [Norvasc] 10 mg PO QAM No Action Hydrochlorothiazide 25 mg PO DAILY #30 tablet Lisinopril [Zestril] 20 mg PO BID Spironolactone 25 mg PO DAILY Discharge Medication List HYDROcodone/APAP 10-325MG [[place] 10-325] 1 tab PO Q12HR PRN 10/16/15 [History] Morphine Sulfate [Tomasa] 50 mg PO Q12H 10/16/15 [History] Nitroglycerin Sl Tabs [Nitrostat] 0.4 mg SUBLINGUAL Q5M PRN #25 tab 10/20/15 [Rx ] Prasugrel [Effient] 10 mg PO DAILY #30 tab 10/20/15 [Rx] Aspirin 325 mg PO DAILY #30 tab 05/16/16 [Rx] Atorvastatin [Lipitor] 40 mg PO HS #30 tablet 05/16/16 [Rx] Hydrochlorothiazide 25 mg PO DAILY #30 tablet 05/16/16 [Rx] Metoprolol Tartrate [Lopressor] 25 mg PO BID #60 tablet 05/16/16 [Rx] Lisinopril [Zestril] 20 mg PO BID 09/14/16 [History] Spironolactone 25 mg PO DAILY 01/23/18 [History] PARoxetine HCL [Paxil] 30 mg PO DAILY 04/22/18 [History] Amiodarone [Cordarone] 200 mg PO BID #60 tab 04/26/18 [Rx] Apixaban [Eliquis] 5 mg PO BID #60 tab 04/26/18 [Rx] Levofloxacin [Levaquin] 750 mg PO DAILY #5 tab 04/26/18 [Rx] Follow up Appointment(s)/Referral(s): Alli Simeon MD [STAFF PHYSICIAN] - 1 Week Kaitlin Lawrence MD [Primary Care Provider] - 1-2 days Rad Garcia DO [STAFF PHYSICIAN] - 1 Week Discharge Disposition: HOME SELF-CARE
--- NOTE | 2018-04-26 11:54 | P.PN ---
Subjective Progress Note Date: 04/26/18 Principal diagnosis: Acute metabolic encephalopathy and acute kidney injury. This is a 62-year-old female with history of coronary artery disease, IN, previous stents, history of GERD, history of upper GI bleeding, hypertension, obstructive sleep apnea syndrome, and no previous history of documented kidney disease. Patient had previous documented peripheral vessel occlusive disease involving lower extremities, and she is also known to have history of ischemic cardiomyopathy. Patient has been doing quite well according to the , yesterday she was noted to be quite sleepy, and she slept most of the day. Early this morning, the patient was noted to be confused. was quite concerned, she is known to have history of tonic back pain, and she is mostly on morphine as well as hydrocodone on outpatient basis. She does not take any nonsteroidal anti-inflammatory drugs. Patient was brought into the ER with the chief complaint of confusion and mental status change. She was found to have hypotension with blood pressure systolic in the 50s. Patient was given Narcan, she was also given fluid boluses about 2 L. Her kidney functioning came back quite abnormal with creatinine of chest over 10, and her potassium was 6.8. Patient did receive calcium, IV insulin, D50, 2 A of bicarb, and she was placed on a bicarb drip. Patient was admitted to the ICU, and this consult was initiated. Choudhary catheter was placed and it showed good urine output, roughly about 500 mL were noted in the Choudhary catheter bag. Normally patient is on diuretics including Aldactone, she is also on lisinopril for hypertension and underlying coronary artery disease. No previous history of kidney injury. No previous history of documented kidney disease. Ultrasound of the kidneys showed no evidence of obstructive uropathy. She was seen by nephrology in consultation, and felt that her acute kidney injury is secondary to acute tubular necrosis from hypotension. And her hyperkalemia is related to her acute kidney injury worsened by the fact that the patient is on lisinopril and Aldactone. And it was felt that her mental status is likely related to metabolic encephalopathy, could also be related to the fact that the patient is chronically on opioids particularly morphine. Her CT of the brain came back negative. During my evaluation, the patient seemed confused, she looked clinically dehydrated, she denied any headache, no blurred vision, no dizziness. She felt generally weak. Denied any nausea vomiting abdominal pain , she has chronic low back pain. Denies any melena or hematemesis, no dysuria and no frequency no urgency. Patient was noted to have borderline blood pressure, was not on any pressors at the time she presented to the ICU. Patient was getting more fluid boluses shortly after I saw her. Patient was reevaluated today on 04/23/2018, she seems to be doing much better compared to how she felt yesterday. Mental status remains marginal, but again significantly improved compared to yesterday. Patient developed a brief episode of atrial fibrillation with RVR earlier this morning, she was on a small dose of norepinephrine, but since the norepinephrine was discontinued, she is presently now in sinus rhythm. Her kidney functioning demonstrated a significant improvement, creatinine is now down to 2.95. And her potassium is 5.2. Her troponin is also down to 0.322. Her creatinine was around 10 on admission. Patient remains on a sodium bicarb drip, she received significant amount of fluids overnight, and she also had a significant amount of urine output in the last 24 hours. Again patient is doing much better today compared to yesterday. Denies any cough no wheezing no shortness of breath. Chest x- ray was normal on admission, presently she has what seems to be left lower lobe atelectasis, possibly a small left pleural effusion, strongly doubt pneumonia. This is a new finding since admission. It could very well be related to the significant amount of fluid that the patient was given in the last 12 hours. She was seen by cardiology, and felt that her troponin elevation is nonspecific , hence no need for further cardiac intervention at this point, but we will address her episodes of atrial fibrillation with RVR. During the night, patient developed findings of pulmonary edema because of significant amount of fluids given, however he shouldn't responded well to Lasix, she was shortly on BiPAP, and now she is transitioned to a high flow nasal cannula, presently at 10 L, and she is saturating quite well. She did have a temp of 103 last night, and she was started on IV antibiotics. Cultures including blood cultures and urine cultures are negative so far. Patient was reevaluated today on 04/24/2018, patient is feeling better, she is off pressors, not requiring any norepinephrine, she is off Cardizem and she is presently in normal sinus rhythm. Patient converted to normal sinus rhythm last night, maintained on 10 L high flow nasal cannula, O2 saturation is marginal. Patient was given a dose of Lasix earlier today, and her chest x-ray continues to show mild pulmonary edema. Her renal functioning is getting much better. She presented initially with creatinine of 10, and today her creatinine is 1.13. BUN is 36. CBC is relatively normal. I believe the patient will even improve further with the Lasix and we will be able to titrate down her FiO2 to a lower FiO2. Patient was reevaluated today on 04/25/2018, patient is improving, remains confused, but the degree of confusion is much improved compared to baseline. Patient is not requiring any pressors, she was placed on amiodarone last night for atrial fibrillation and RVR, but presently in normal sinus rhythm. Patient remains on amiodarone, all her labs seem to be significantly better. Patient is doing great compared to how she felt the last few days. She has good oral intake, she is nonoliguric, and her renal functioning is basically almost normal. WBC count is 13.2 hemoglobin is 9.9. Electrolytes are relatively normal. BUN is 28 creatinine 1.01. Remember this lady came in with a creatinine of around 10. Pulmonary-torres, patient developed pulmonary edema, continues to have minimal interstitial edema, but significantly improved, strongly doubt pneumonia. Remains on antibiotics. Cultures so far remain negative. Patient was reevaluated today on 04/26/2018, she is in the ICU but she is an overflow from selective, patient is doing great, she is basically back to her baseline. She is not confused, denies any shortness of breath, no arrhythmias, mostly in sinus rhythm today, remains on oral amiodarone, no major issues overnight. She was seen by cardiology, and clear for discharge. I evaluated the patient, I also felt that the patient could be cleared for discharge, she was also cleared for discharge by nephrology. And I feel the patient is clearly ready to be discharged home today. Objective - Vital Signs Vital signs: Vital Signs Temp 98.2 F 04/26/18 09:00 Pulse 70 04/26/18 09:00 Resp 19 04/26/18 09:00 BP 114/67 04/26/18 09:00 Pulse Ox 96 04/26/18 09:00 Intake & Output 04/25/18 04/26/18 04/26/18 18:59 06:59 18:59 Intake Total 964.354 260 0 Output Total 1295 975 Balance -330.646 -715 0 Weight 91.5 kg Intake: IV 590 260 .9 kvo 240 60 Magnesium Sulfate-D5w Pmx 100 1 gm In Dextrose/Water 1 100ml.bag @ 100 mls/hr IVPB Q1H TAYA Rx#: [id number] Magnesium Sulfate-D5w Pmx 100 1 gm In Dextrose/Water 1 100ml.bag @ 100 mls/hr IVPB Q1H TAYA Rx#: [id number] Piperacillin-Tazobactam 3 50 200 .375 gm In Sodium Chloride 0.9% 100 ml @ 25 mls/hr IVPB Q12HR TAYA Rx #:[id number] Sodium Ferric Gluconat- 100 Sucrose 125 mg In Sodium Chloride 0.9% 100 ml @ 100 mls/hr IVPB DAILY TAYA Rx#:[id number] Intake, IV Titration 374.354 Amount Amiodarone 450 mg In 374.354 Dextrose 5% in Water 250 ml @ 1 MG/MIN 33.33 mls/ hr IV .Q7H31M TAYA Rx#: [id number] Oral 0 Output: Urine 1295 975 Other: Voiding Method Indwelling Catheter Indwelling Catheter Indwelling Catheter # Bowel Movements 1 - Exam Physical Exam: Revealed a 62-year-old female in no distress. Alert oriented 3. Head: Atraumatic, normocephalic. HEENT:[Neck is supple.] [No neck masses.] [No thyromegaly.] [No JVD.] Dry mucous membranes noted, PERRLA, EOMI, no icterus. 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 Neurological Exam: Awake, oriented 3, no gross focal deficits. Musculoskeletal: Good muscle strength bilaterally. Lymphatics: No lymphadenopathy. Psychiatric: Normal mood, affect and mental status examination. - Labs CBC & Chem 7: 04/26/18 05:11 04/26/18 05:11 Labs: Abnormal Lab Results - Last 24 Hours (Table) 04/26/18 04/26/18 Range/Units 05:11 05:11 WBC 13.0 H (3.8-10.6) k/uL RBC 3.57 L (3.80-5.40) m/uL Hgb 10.3 L (11.4-16.0) gm/dL Hct 33.9 L (34.0-46.0) % MCHC 30.3 L (31.0-37.0) g/dL BUN 27 H (7-17) mg/dL Creatinine 1.06 H (0.52-1.04) mg/dL Microbiology - Last 24 Hours (Table) 04/23/18 01:49 Blood Culture - Preliminary Blood No Growth after 72 hours 04/24/18 01:35 Gram Stain - Preliminary Sputum Sputum Culture - Preliminary Gram Neg Bacilli 04/22/18 08:30 Blood Culture - Preliminary Blood No Growth after 72 hours Assessment and Plan Assessment: Impression: 1 altered mental status, most likely secondary to metabolic encephalopathy related to her acute kidney injury and compounded by the fact that the patient has been on narcotics. Completely resolved today on 04/26/2018. 2 chronic pain syndrome, patient is on morphine and other narcotics for pain control. 3 acute hyperkalemia secondary to acute kidney injury and secondary to lisinopril and Aldactone. Resolved. 4 history of coronary artery disease and previous stents placement, history of ischemic cardiomyopathy. 5 acute metabolic acidosis secondary to acute kidney injury and acute renal failure. 6 history of peripheral vessel occlusive disease involving lower extremities 7 history of hypertension, 8 history of obstructive sleep apnea syndrome 9 history of previous IN and stents placement 10 history of Tarlov cyst disease and chronic low back pain. 11 acute rhabdomyolysis,, resolved 12 acute hypoxic respiratory failure secondary to fluid overload and some component of pulmonary edema secondary to diastolic dysfunction. But mostly related to the fact that the patient received a significant amount of fluids within a short period of time. Patient is now on 5 L nasal cannula at present. 13 possible sepsis, all cultures remain negative so far. This was basically ruled out 14 atrial fibrillation with RVR, paroxysmal, presently patient is in normal sinus rhythm. Maintained now on oral amiodarone as per cardiology. Recommendation: Agree with discharge planning, not much to be added from my perspective, patient should have follow-up with the car supervisor on outpatient basis. She should also have follow-up with the debug technician, does not need to be seen by pulmonary un less the patient develops any pulmonary issues. Time with Patient: Less than 30
[2018-04-27 08:28] LABS: Eosinophils # (M) 0.26 k/uL (0-0.7); Lymphocytes # (M) 2.08 k/uL (1.0-4.8); Neutrophils # (M) 9.36 k/uL (1.3-7.7); Neutrophils % (M) 72 %; Nucleated Red Blood Cells 0 /100 WBC (0-0); Total Cells Counted 100
[2018-04-27] MEDS ORDERED: LEVOFLOXACIN 750 MG TAB PO SCH (09:00)
--- NOTE | 2018-04-29 09:00 | CDI ---
Documentation Clarification Form Date: 04/29/2018 8:25:39 AM From: BRAYAN Deluca; Rim[facility] [employer] Community Outreach Worker Phone: If you have a question about this query, please contact Rimma [facility] Community Outreach Worker at [phone] between 8am and 5pm. Admit Date: 04/22/2018 12:08:00 PM Patient Name: Lu Bah Visit Number: [id number] Discharge Date: 04/26/2018 2:00:00 PM ATTENTION: The Clinical Documentation Specialists (CDI) and [facility] Coding Staff appreciate your assistance in clarifying documentation. Please respond to the clarification below the line at the bottom and electronically sign. The CDI & [facility] Coding staff will review the response and follow-up if needed. Please note: Queries are made part of the Legal Health Record. If you have any questions, please contact the author of this message via ITS. Dr. Braydon Lynch, The following has been documented in your progress notes: Sepsis. History/Risk Factors: Patient presented with acute renal failure, rhabdomyolysis, and metabolic encephalopathy. Clinical Indicators: Vitals on admission; temp 98.7 pulse 18, bp 58/34, WBC 12.5. Treatment: IV hydration, Definition of Present on Admission (POA): A diagnosis present at the time the order for admission to inpatient status was written. For each diagnosis, documentation must be clear to determine if the condition was present at the time of the patients inpatient admission or developed during the hospital stay. Please clarify if sepsis was POA: ____N = No, the condition was not present at the time of the order for inpatient admission. . MTDD
== END 2018-04-26 14:00 | disposition home or self-care (01) | DRG 682 ==
LOC: EC 08:18 → 2SICU 12:08
PROVIDERS: ADMIT Family Medicine; ATTEND Family Medicine
PROC: 5A09357 Assistance with Respiratory Ventilation, Less than 24 Consecutive Hours, Continuous Positive Airway Pressure (ICD-10-PCS; principal; 2018-04-22)
DX: N17.0 Acute kidney failure with tubular necrosis (principal); A41.9 Sepsis, unspecified organism; J18.9 Pneumonia, unspecified organism; J96.01 Acute respiratory failure with hypoxia; R65.21 Severe sepsis with septic shock; G92 Toxic encephalopathy; J81.0 Acute pulmonary edema; E87.1 Hypo-osmolality and hyponatremia; E87.2 Acidosis; J81.1 Chronic pulmonary edema; J98.11 Atelectasis; M62.82 Rhabdomyolysis; D50.9 Iron deficiency anemia, unspecified; E78.5 Hyperlipidemia, unspecified; E83.42 Hypomagnesemia; E86.0 Dehydration; E87.5 Hyperkalemia; E87.70 Fluid overload, unspecified; F32.9 Major depressive disorder, single episode, unspecified; F41.0 Panic disorder [episodic paroxysmal anxiety]; G47.33 Obstructive sleep apnea (adult) (pediatric); G89.4 Chronic pain syndrome; I10 Essential (primary) hypertension; I25.10 Atherosclerotic heart disease of native coronary artery without angina pectoris; I25.2 Old myocardial infarction; I25.5 Ischemic cardiomyopathy; I27.20 Pulmonary hypertension, unspecified; I48.0 Paroxysmal atrial fibrillation; I73.9 Peripheral vascular disease, unspecified; K21.9 Gastro-esophageal reflux disease without esophagitis; K59.00 Constipation, unspecified; T46.4X5A Adverse effect of angiotensin-converting-enzyme inhibitors, initial encounter; T50.2X5A Adverse effect of carbonic-anhydrase inhibitors, benzothiadiazides and other diuretics, initial encounter; Z79.01 Long term (current) use of anticoagulants; Z79.82 Long term (current) use of aspirin; Z79.891 Long term (current) use of opiate analgesic; Z79.899 Other long term (current) drug therapy; Z87.11 Personal history of peptic ulcer disease; Z87.891 Personal history of nicotine dependence; Z88.6 Allergy status to analgesic agent; Z90.710 Acquired absence of both cervix and uterus; Z95.5 Presence of coronary angioplasty implant and graft; T40.2X1A Poisoning by other opioids, accidental (unintentional), initial encounter
CPT/HCPCS: 36415; 51702; 70450; 71045; 74176; 76770; 80048; 80053; 80061; 80306; 81001; 82550; 82553; 82728; 83540; 83550; 83605; 83735; 84100; 84132; 84439; 84443; 84484; 85025; 85379; 85610; 85730; 87040; 87070; 87077; 87086; 87186; 87205; 93005; 93306; 93970; 94640; 94660; 96361; 96372; 96374; 96375; 96376; 99291

== ENCOUNTER → 2018-07-26 | Outpatient (CLI) | payer MEDICARE ==
[2018-07-26 16:51] LABS: Albumin 4.1 g/dL (3.80-4.90); Albumin/Globulin Ratio 2.05 (1.60-3.17); Anion Gap 6.1 mmol/L (4.00-12.00); Calcium 8.9 mg/dL (8.7-10.3); Carbon Dioxide 27.9 mmol/L (21.6-31.8); Potassium 4.7 mmol/L (3.5-5.5); Total Bilirubin 0.2 mg/dL (0.3-1.2); Total Protein 6.1 g/dL (6.2-8.2)
== END | disposition home or self-care (01) ==
LOC: LABWHC1 08:11
PROVIDERS: ATTEND Internal Medicine Interventional Cardiology
DX: E78.2 Mixed hyperlipidemia (principal); I48.0 Paroxysmal atrial fibrillation
CPT/HCPCS: 36415; 80053; 80061; 84443

== ENCOUNTER → 2018-09-11 | Outpatient (CLI) | payer MEDICARE ==
--- NOTE | 2018-09-11 08:54 | US ---
EXAMINATION TYPE: US abdomen complete DATE OF EXAM: 09/11/2018 COMPARISON: CT 2019, US 2016 CLINICAL HISTORY: fatty liver k76.0. History of fatty liver, patient states no other symptoms. EXAM MEASUREMENTS: Liver Length: 20.7 cm Gallbladder Wall: 0.3 cm CBD: 1.4 cm Spleen: 9.7 cm Right Kidney: 10.7 x 5.3 x 5.3 cm Left Kidney: 10.8 x 5.1 x 5.1 cm Difficult and limited study due to patient body habitus Pancreas: obscured by overlying midline bowel gas Liver: enlarged, visualized portions appear heterogeneous, attenuating, increased echogenicity and d ecreased visualization of vessels suggestive of fatty infiltrate Gallbladder: multiple echogenic foci with ringdown artifact within wall Evidence for sonographic Stoner's sign: no CBD: dilated Spleen: wnl Right Kidney: 0.4cm echogenic focus mid pole Left Kidney: wnl Upper IVC: wnl Abd Aorta: proximal portion appears wnl, mid and distal obscured by overlying midline bowel gas IMPRESSION: 1. Heterogeneous pattern of liver can be seen with hepatic steatosis, hepatitis or diffuse hepatocell ular disease. 2. Multiple echogenic foci with ringdown artifact be seen with gallbladder polyps, adherent stones or adenomyomatosis. Common bile duct appears dilated at 1.4 cm. Distal CBD stone or pathology is sugges sue. Correlate with ERCP as clinically warranted. 3. 4 mm nonobstructing right kidney stone.
== END | disposition home or self-care (01) ==
LOC: RADUSWWP 08:06
PROVIDERS: ATTEND Family Medicine
DX: N20.0 Calculus of kidney (principal); R93.2 Abnormal findings on diagnostic imaging of liver and biliary tract; K83.8 Other specified diseases of biliary tract
CPT/HCPCS: 76700

== ENCOUNTER → 2018-12-19 | Outpatient (CLI) | payer MEDICARE ==
[2018-12-19 12:15] LABS: HCT 47.1 % (34.0-46.0); HGB 14.9 gm/dL (11.4-16.0); Hypochromasia Slight; MCH 29.9 pg (25.0-35.0); MCHC 31.7 g/dL (31.0-37.0); MCV 94.2 fL (80.0-100.0); Mean Platelet Volume 7.6; Platelet Count 222 k/uL (150-450); RBC 5.01 m/uL (3.80-5.40)
[2018-12-19 12:34] LABS: Appearance,Urine Cloudy (Clear); Bilirubin,Urine Negative (Negative); Blood,Urine Small (Negative); Color,Urine Yellow; Glucose,Urine (UA) Negative (Negative); Ketones,Urine Negative (Negative); Leukocyte Esterase,Urine Negative (Negative); Mucus,Urine Rare /hpf; Nitrite,Urine Negative (Negative); Protein,Urine Trace (Negative); RBC,Urine 1 /hpf (0-5); Specific Gravity,Urine 1.025 (1.001-1.035); Squamous Epithelial Cell,Urine 7 /hpf (0-4); Urobilinogen,Urine <2.0 mg/dL (<2.0); WBC,Urine 1 /hpf (0-5)
[2018-12-19 18:44] LABS: Iron Saturation 19.93 (12.00-45.00)
[2018-12-19 18:48] LABS: African American GFR (CKD) 90.9 (60.0-200.0); BUN/Creat Ratio 23.75 Ratio (12.00-20.00); Calcium 9.2 mg/dL (8.7-10.3); Magnesium 1.8 mg/dL (1.5-2.4); Phosphorus 3.3 mg/dL (2.4-5.1); Potassium 4.8 mmol/L (3.5-5.5); Uric Acid 5.4 mg/dL (2.9-7.7)
[2018-12-19 18:52] LABS: Vitamin D 25 Hydroxy 26.5 ng/mL (30.0-100.0)
== END | disposition home or self-care (01) ==
LOC: LABWHC1 11:23
PROVIDERS: ATTEND Nurse Practitioner Family
DX: N17.9 Acute kidney failure, unspecified (principal); N25.81 Secondary hyperparathyroidism of renal origin; D50.9 Iron deficiency anemia, unspecified; E55.9 Vitamin D deficiency, unspecified
CPT/HCPCS: 36415; 80048; 81001; 82306; 82728; 83540; 83550; 83735; 83970; 84100; 84550; 85027

== ENCOUNTER → 2019-10-05 | Outpatient (CLI) | payer MEDICARE ==
--- NOTE | 2019-10-05 14:09 | CTL ---
EXAMINATION TYPE: CT Low Dose Lung DATE OF EXAM ORDERED: 10/05/2019 HISTORY: Z 87.891. Lung cancer screening CT DLP: 129.[address] CTDI: 4.00 mGy Automated exposure control for dose reduction was used. SCREENING VISIT: 1 COMPARISON: None TECHNIQUE: Low dose computed tomography scan was performed through the chest at 1 mm thick sections a nd reconstructed images in the coronal plane at [address] DIAGNOSTIC QUALITY: Satisfactory FINDINGS: LUNG NODULES: Present, detailed below: Right lung a nodule with a size of 5 mm. Nodule Size in Millimeters 5 mm was visualized with Nodule Type: Solid that is Nodule state: New in nature on image # CT Image slide number 154. Subpleural nodu le Lung a nodule with a size of 5. Nodule Size in Millimeters I mm was visualized with Nodule Type: Baylee id that is Nodule state: in nature on image # CT Image slide number [id number], posterior lung base, additio nal similar lesion axial image 138 posterior right lung base measuring 5 to 6 mm. LUNGS: COPD: Severity: Mild Fibrosis: Severity: Mild Lymph nodes: Nonenlarged Other findings: RIGHT PLEURAL SPACE: Effusion: None Calcification: None Thickening: None Pneumothorax: None LEFT PLEURAL SPACE: Effusion: None Calcification: None Thickening: None Pneumothorax: None HEART: Heart Size: Enlarged Coronary calcification: Mild Pericardial effusion: None OTHER FINDINGS: Upper abdomen: Probable hepatic steatosis within the liver. There is a small hiatal hernia. Bony thorax: Thoracic spondylosis is noted. Supraclavicular region: Unremarkable Other: IMPRESSION: Probably benign FOLLOW UP CT CHEST RECOMMENDATION: [address] LUNG RAD: 3
== END | disposition home or self-care (01) ==
LOC: RADCTMAIN 12:11
PROVIDERS: ATTEND Family Medicine
DX: Z12.2 Encounter for screening for malignant neoplasm of respiratory organs (principal); Z87.891 Personal history of nicotine dependence

== ENCOUNTER → 2019-11-19 | Outpatient (CLI) | payer MEDICARE ==
[2019-11-19 18:37] LABS: African American GFR (CKD) 90.3 (60.0-200.0); Albumin 4.4 g/dL (3.80-4.90); Albumin/Globulin Ratio 1.83 (1.60-3.17); Calcium 9.5 mg/dL (8.7-10.3); Chol/HDL Ratio 4.25; Globulin 2.4 g/dL (1.6-3.3); LDL Cholesterol,Calculated 61.8 mg/dL (0.0-131.0); Non-African American GFR(CKD) 77.9 (60.0-200.0); Potassium 4.7 mmol/L (3.5-5.5); Total Bilirubin 0.4 mg/dL (0.2-1.2); Total Protein 6.8 g/dL (6.2-8.2); VLDL Calculation 42.2 mg/dL (5.00-40.00)
== END | disposition home or self-care (01) ==
LOC: LABWHC1 11:39
PROVIDERS: ATTEND Internal Medicine Interventional Cardiology
DX: E78.2 Mixed hyperlipidemia (principal)
CPT/HCPCS: 36415; 80053; 80061

== ENCOUNTER 2019-11-30 06:08 | Day surgery (SDC) | payer MEDICARE ==
[2019-11-25 09:23] VITALS: BMI 25.0
[~2019-11-30 06:08] MED LIST changes: +ALPRAZolam 0.5 MG TAB PO PRN; +ATORVASTATIN 80 MG TAB PO STA; +NITROGLYCERIN SL TABS 0.4 MG TAB SUBLINGUAL PRN
[2019-11-30] MEDS ORDERED: SODIUM CHLORIDE 0.9% 1,000 ML IV ONE (07:15)
[2019-11-30] MEDS ORDERED: VERAPAMIL 2.5 MG/ML 2 ML AMP ONE (07:19)
[2019-11-30] MEDS ORDERED: LIDOCAINE 1% INJ 10MG/ML (20 ML MDV) ONE (07:19)
[2019-11-30] MEDS ORDERED: fentaNYL (PF) 50 MCG/ML 2 ML AMP ONE (07:20)
[2019-11-30 07:24] LABS: HGB 15.2 gm/dL (11.4-16.0); MCH 28.8 pg (25.0-35.0); MCV 92.8 fL (80.0-100.0); Mean Platelet Volume 7.8; Platelet Count 257 k/uL (150-450); RBC 5.28 m/uL (3.80-5.40); RDW 13.3 % (11.5-15.5); WBC 9.4 k/uL (3.8-10.6)
[2019-11-30] MEDS ORDERED: LIDOCAINE 1% INJ 10MG/ML (20 ML MDV) SQ ONE (07:32)
[2019-11-30] MEDS ORDERED: fentaNYL (PF) 50 MCG/ML 2 ML AMP IVP ONE (07:32)
[2019-11-30] MEDS ORDERED: VERAPAMIL SYRINGE (5 MG/10 ML) INTRAARTER ONE (07:36)
[2019-11-30 07:37] VITALS: RESP 16; TEMP 98.5
[2019-11-30] MEDS ORDERED: HEPARIN SODIUM 1,000 UN/ML (10ML VL) ONE (07:41)
[2019-11-30] MEDS ORDERED: IOPAMIDOL-370 125ML BTL INJ ONE (07:43)
[2019-11-30] MEDS ORDERED: HEPARIN SODIUM 1,000 UN/ML (10ML VL) IV ONE (07:43)
[2019-11-30 07:54] LABS: Eosinophils # (M) 0.09 k/uL (0-0.7); Lymphocytes # (M) 2.07 k/uL (1.0-4.8); Monocytes # (M) 1.03 k/uL (0-1.0); Neutrophils % (M) 66 %; Nucleated Red Blood Cells 0 /100 WBC (0-0); Total Cells Counted 100
[2019-11-30] MEDS ORDERED: RX INFO: IV CONTRAST WAS GIVEN 1 EACH MISC MISCELLANE PRN (07:56)
[2019-11-30] MEDS ORDERED: HYDROcodone/APAP 10-325MG 1 EACH TAB PO PRN (07:57)
[2019-11-30] MEDS ORDERED: NITROGLYCERIN SL TABS 0.4 MG TAB SUBLINGUAL PRN (07:57)
[2019-11-30] MEDS ORDERED: SODIUM CHLORIDE 0.9% 1,000 ML IV SCH (08:00)
--- NOTE | 2019-11-30 10:41 | CC ---
CARDIAC CATHETERIZATION REPORT Mrs. Bah is a 64-year-old female with known history of hypertension, hyperlipidemia, history of coronary artery disease, status post percutaneous revascularization, history of PAD who presented with symptoms of chest discomfort and had abnormal myocardial perfusion imaging. In view of that, recommendation made regarding cardiac catheterization. The procedure, risks and complications were discussed with the patient who is in full understanding and agreement. PROCEDURE: Patient was brought to the roofing laborer in a fasting semi-sedated state after receiving fentanyl and Benadryl and achieving moderate conscious sedated state. Using Xylocaine anesthesia and Seldinger technique, a 6-Montserratian sheath was introduced in the right radial artery. Selective right and left angiography were performed using 5-Montserratian 3.5 bend right and left Siddhartha catheter, multiple views of the coronary artery including hemiaxial views obtained, following that 5-Montserratian tight pigtail catheter was introduced into left ventricle and pressures were calculated. Following that, catheter and sheath were removed. Hemostasis was obtained with deployment of a TR band. There was no immediate complication. Patient was returned to room in stable condition. Of note, the patient received intra-arterial verapamil and 5000 units of intravenous heparin. There was no immediate complication. FINDINGS: LEFT MAIN: This is a large-sized vessel, bifurcating into left circumflex, left anterior descending artery. The left main coronary artery has no evidence of high-grade stenosis. LEFT ANTERIOR DESCENDING ARTERY: This is a large-sized vessel, reaching toward the apex with a wraparound apex segment, giving rise to a large diagonal branch proximally. The left main coronary artery in mid segment has a 20% plaque. The rest of the vessel has no high-grade stenosis. LEFT CIRCUMFLEX: This is a nondominant vessel, large in caliber, giving rise to two obtuse marginal branch. The second one is large in caliber. The left circumflex proximally has a 20% to 30% plaque. There is mild disease in the second obtuse marginal branch without any evidence of high-grade stenosis. RIGHT CORONARY ARTERY: This is a dominant vessel, large in caliber. The proximal RCA has a 20% to 30% plaque. Beyond that, the stented segment is patent with no evidence of in-stent restenosis, distally bifurcating PDA and posterolateral segment branches that have mild intimal disease without any evidence of high-grade stenosis. LEFT VENTRICULOGRAM: Left ventriculogram is not performed. HEMODYNAMICS: There was no gradient across the aortic valve. The ventricular end- diastolic pressure was 12-16 mmHg. CONCLUSION: 1. Mild triple-vessel coronary artery disease. 2. Patent stent to the RCA. RECOMMENDATION: In view of finding anatomy, recommend continue medical therapy with aggressive risk modifications being initiated. Those findings and recommendation were discussed with the patient and her family who are full understanding and agreement. Duration of sedation is 17 minutes. MMODL / IJN: [id number] /
--- NOTE | 2019-11-30 10:43 | LTR ---
DATE OF SERVICE: 11/30/2019 RE: Lu Bah Dear Dr. Abbott; I had the pleasure to perform cardiac catheterization on Mrs. Bah at [facility] on November 30, 2019 and a full copy of the procedure note will be forwarded to you. In brief, she was found to have no evidence of significant obstructive disease with patent stent to the RCA and based on those findings, I recommend to continue medical therapy and continue the aggressive risk modification that has been initiated and thank you again for allowing me to participate in this patient's personal care. Please feel free to call for any questions. Sincerely yours, MD SONDRA FraserL / LILIBETHN: [id number] /
[2019-11-30 12:23] VITALS: BP 117/60; PULSE 73
[2019-11-30] MEDS ORDERED: METOPROLOL TARTRATE 25 MG TAB PO SCH (21:00)
[2019-11-30] MEDS ORDERED: ATORVASTATIN 40 MG TAB PO SCH (21:00)
[2019-12-01] MEDS ORDERED: SPIRONOLACTONE 25 MG TAB PO SCH (09:00)
[2019-12-01] MEDS ORDERED: PARoxetine 10 MG TAB PO SCH (09:00)
[2019-12-01] MEDS ORDERED: ASPIRIN 81 MG PO SCH (09:00)
[2019-12-01] MEDS ORDERED: amLODIPine 5 MG TAB PO SCH (09:00)
== END 2019-11-30 14:04 | disposition home or self-care (01) ==
LOC: CATHCVL 06:08
PROVIDERS: ATTEND Internal Medicine Interventional Cardiology
DX: I25.10 Atherosclerotic heart disease of native coronary artery without angina pectoris (principal); I25.5 Ischemic cardiomyopathy; I10 Essential (primary) hypertension; I48.0 Paroxysmal atrial fibrillation; I70.213 Atherosclerosis of native arteries of extremities with intermittent claudication, bilateral legs; E78.2 Mixed hyperlipidemia; G47.33 Obstructive sleep apnea (adult) (pediatric); M19.90 Unspecified osteoarthritis, unspecified site; F17.211 Nicotine dependence, cigarettes, in remission; Z79.82 Long term (current) use of aspirin; Z79.01 Long term (current) use of anticoagulants; Z79.899 Other long term (current) drug therapy; Z88.1 Allergy status to other antibiotic agents; Z88.6 Allergy status to analgesic agent; Z88.8 Allergy status to other drugs, medicaments and biological substances; Z90.710 Acquired absence of both cervix and uterus; Z90.89 Acquired absence of other organs
CPT/HCPCS: 93458; 85025; C1769; C1894; J2001; J3010; J1644; Q9967

== ENCOUNTER → 2020-01-18 | Outpatient (CLI) | payer MEDICARE ==
[2020-01-18 19:13] LABS: African American GFR (CKD) 68.9 (60.0-200.0); Albumin 4.2 g/dL (3.80-4.90); Albumin/Globulin Ratio 1.83 (1.60-3.17); Anion Gap 4.3 mmol/L (4.00-12.00); Calcium 9.7 mg/dL (8.7-10.3); Carbon Dioxide 31.7 mmol/L (21.6-31.8); Chol/HDL Ratio 4.15; Globulin 2.3 g/dL (1.6-3.3); LDL Cholesterol,Calculated 68.6 mg/dL (0.0-131.0); Non-African American GFR(CKD) 59.5 (60.0-200.0); Potassium 4.9 mmol/L (3.5-5.5); Total Bilirubin 0.5 mg/dL (0.3-1.2); Total Protein 6.5 g/dL (6.2-8.2); VLDL Calculation 38.4 mg/dL (5.00-40.00)
== END | disposition home or self-care (01) ==
LOC: LABWHC1 11:29
PROVIDERS: ATTEND Internal Medicine Interventional Cardiology
DX: E78.2 Mixed hyperlipidemia (principal)
CPT/HCPCS: 36415; 80053; 80061

== ENCOUNTER → 2020-01-27 | Outpatient (CLI) | payer MEDICARE ==
[2020-01-27 09:04] LABS: HCT 51.3 % (34.0-46.0); HGB 15.6 gm/dL (11.4-16.0); Hypochromasia Slight; MCH 29.1 pg (25.0-35.0); MCHC 30.5 g/dL (31.0-37.0); MCV 95.4 fL (80.0-100.0); Mean Platelet Volume 7.7; Platelet Count 222 k/uL (150-450); RBC 5.38 m/uL (3.80-5.40); RDW 13.3 % (11.5-15.5); WBC 9.4 k/uL (3.8-10.6)
[2020-01-27 09:33] LABS: African American GFR (CKD) >90 (>60 ml/min/1.73 sqM); Anion Gap 5 mmol/L; Blood Urea Nitrogen 21 mg/dL (7-17); Carbon Dioxide 30 mmol/L (22-30); Chloride 103 mmol/L (98-107); Non-African American GFR(CKD) 85 (>60 ml/min/1.73 sqM); Sodium 138 mmol/L (137-145)
[2020-01-27 09:34] LABS: Potassium 5.1 mmol/L (3.5-5.1)
== END | disposition home or self-care (01) ==
LOC: LABPAT 08:25
PROVIDERS: ATTEND Internal Medicine Interventional Cardiology
DX: Z01.818 Encounter for other preprocedural examination (principal); I73.9 Peripheral vascular disease, unspecified
CPT/HCPCS: 80051; 82565; 84520; 85027

== ENCOUNTER 2020-02-03 09:13 | Day surgery (SDC) | payer MEDICARE ==
[2020-02-01 15:28] VITALS: BMI 32.3
[~2020-02-03 09:13] MED LIST changes: -ALPRAZolam 0.5 MG TAB PO PRN; -ATORVASTATIN 80 MG TAB PO STA; -NITROGLYCERIN SL TABS 0.4 MG TAB SUBLINGUAL PRN; +ZOLPIDEM 5 MG TAB PO PRN
[2020-02-03] MEDS ORDERED: SODIUM CHLORIDE 0.9% 1,000 ML IV ONE (09:54)
[2020-02-03] MEDS: MIDAZOLAM 2 MG/2 ML VIAL IVP ONE ×2 (11:00→11:42)
[2020-02-03] MEDS ORDERED: LIDOCAINE 1% INJ 10MG/ML (20 ML MDV) SQ ONE (11:33)
[2020-02-03] MEDS ORDERED: HYDROmorphone 1 MG/ML 1 ML SYRINGE IVP ONE (11:35)
[2020-02-03] MEDS ORDERED: niCARdipine Syringe (1,000 mcg/10 mL) INTRAARTER ONE (12:09)
[2020-02-03] MEDS ORDERED: NITROGLYCERIN 1000MCG/10ML SYRINGE INTRAARTER ONE (12:09)
[2020-02-03] MEDS ORDERED: IOPAMIDOL-250 100ML BTL INTRAARTER ONE (12:24)
[2020-02-03] MEDS ORDERED: SODIUM CHLORIDE 0.9% 1,000 ML in EMPTY BAG 1 BAG IV SCH (12:30)
--- NOTE | 2020-02-03 12:58 | IR ---
Fluoroscopy HISTORY: Peripheral vascular occlusive disease 9.9 minutes fluoroscopy time supplied to the referring clinician. 173 intraoperative C-arm images do cument the procedure. See dictated report from cardiology.
[2020-02-03] MEDS: HYDROcodone/APAP 10-325MG 1 EACH TAB PO PRN ×2 (14:33→23:58)
--- NOTE | 2020-02-03 15:20 | LTR ---
February 03, 2020 To: Dr. Chalino Abbott Re: Lu ReaganMarisolcary (55) Dear Dr. Abbott, Ms. Bah underwent today successful angioplasty of the right femoral artery with good angiographic results and without any complication. Thank you for allowing us to participate in her care, and please do not hesitate to call if you have any question or concern. Sincerely, Alli Simeon M.D. DIRK / KELIN: [id number] /
--- NOTE | 2020-02-03 15:38 | PCN ---
PROCEDURE NOTE PERCUTANEOUS PERIPHERAL INTERVENTION: DATE OF SERVICE: 02/03/2020 PERFORMING PHYSICIAN: Alli Simeon M.D. PROCEDURES PERFORMED: 1. Successful balloon angioplasty of the right SFA using a 6.0 x 250 mm drug-coated balloon with excellent angiographic results and reduction of stenosis from 100% to 0%. 2. Intravascular ultrasound (IVUS) of the right SFA. 3. Right lower extremity angiogram. INDICATION: This is a 64-year-old female patient who sees Dr. Sweet in the office as an outpatient. She has a history of peripheral arterial disease and prior angioplasty of the right SFA in 2018. At that point she underwent drug-coated stent of the right SFA and was experiencing right lower extremity intermittent claudication. She underwent an arterial duplex study which revealed critical disease involving the right SFA. Subsequently she underwent an aortogram with runoff which revealed critical disease involving the right SFA. Because of that, she was brought today to undergo an intervention. APPROACH: Left common femoral artery. COMPLICATIONS: None. LEVEL OF SEDATION: Moderate, with sedation length of 48 minutes. PROCEDURE DESCRIPTION: After obtaining informed consent, the patient was brought to the cardiac lab director. The left common femoral artery was cannulated using micropuncture technique, and the micropuncture wire passed easily. Then I placed a 70 cm 6-Kiswahili sheath at the left common femoral artery. After that, anticoagulation was initiated using heparin and the patient was given a total of 10,000 units of heparin with continuous ACT monitoring throughout the procedure. Subsequently I did select the right common femoral artery using a 5-Kiswahili RIM catheter with an 0.035 stiff Glidewire. Then I advanced the RIM catheter over the wire all the way to the right common femoral artery. Then the sheath was advanced over the wire and the RIM catheter all the way to the right common femoral artery. Right lower extremity angiogram was performed which revealed 3-vessel runoff with critical in-stent restenosis of the right SFA. I did cross the lesion using an 0.[address] wire. Then after that intravascular ultrasound was performed. The intravascular ultrasound revealed a diameter of about 6 mm. I did balloon angioplasty, initially using a 5 mm balloon and subsequently using a 6 mm drug-coated balloon with the following angiogram showing excellent angiographic results. The procedure was completed without any complication. After that I did exchange my long sheath for a short sheath using an 0.035 stiff Glidewire, and I did selective left common femoral artery angiogram. The procedure was completed without any complication. POST-PROCEDURE MANAGEMENT: 1. Dual anti-platelet therapy. 2. Anticoagulation with aspirin. 3. Risk factor modifications. 4. Follow up with the patient. DIRK / LILIBETHN: [id number] /
[2020-02-03] MEDS ORDERED: ATORVASTATIN 40 MG TAB PO SCH (21:00)
[2020-02-03] MEDS: METOPROLOL TARTRATE 25 MG TAB PO SCH (21:12)
[2020-02-04] MEDS: METOPROLOL TARTRATE 25 MG TAB PO SCH (08:39)
[2020-02-04 08:44] VITALS: BP 140/74; PULSE 62; RESP 16; TEMP 98
[2020-02-04] MEDS ORDERED: ASPIRIN 81 MG PO SCH (09:00)
[2020-02-04] MEDS ORDERED: PARoxetine 20 MG TAB PO SCH (09:00)
[2020-02-04] MEDS ORDERED: amLODIPine 5 MG TAB PO SCH (09:00)
[2020-02-04] MEDS ORDERED: SPIRONOLACTONE 25 MG TAB PO SCH (09:00)
[2020-02-04 09:45] LABS: HCT 48.8 % (34.0-46.0); Hypochromasia Slight; MCH 29.5 pg (25.0-35.0); MCHC 30.7 g/dL (31.0-37.0); MCV 96.2 fL (80.0-100.0); Mean Platelet Volume 7.6; Platelet Count 195 k/uL (150-450); RBC 5.08 m/uL (3.80-5.40); RDW 13.2 % (11.5-15.5); WBC 8.6 k/uL (3.8-10.6)
[2020-02-04 09:56] LABS: African American GFR (CKD) >90 (>60 ml/min/1.73 sqM); Anion Gap 6 mmol/L; Blood Urea Nitrogen 15 mg/dL (7-17); Carbon Dioxide 28 mmol/L (22-30); Chloride 106 mmol/L (98-107); Glucose 220 mg/dL (74-99); Non-African American GFR(CKD) 90 (>60 ml/min/1.73 sqM); Potassium 4.6 mmol/L (3.5-5.1); Sodium 140 mmol/L (137-145)
[2020-02-04 11:53] LABS: Eosinophils # (M) 0.17 k/uL (0-0.7); Lymphocytes # (M) 1.81 k/uL (1.0-4.8); Monocytes # (M) 0.69 k/uL (0-1.0); Neutrophils # (M) 5.93 k/uL (1.3-7.7); Neutrophils % (M) 69 %; Nucleated Red Blood Cells 0 /100 WBC (0-0); Total Cells Counted 100
--- NOTE | 2020-02-04 17:04 | DS ---
DISCHARGE SUMMARY DATE OF ADMISSION: 02/03/2020 DATE OF DISCHARGE: BRIEF HISTORY: This is a 64-year-old female patient with history of peripheral arterial disease and prior angioplasty of bilateral lower extremities who sees Dr. Sweet in the office on a regular basis and was recently experiencing right lower extremity intermittent claudication, Jez class IIA. She underwent an arterial duplex study which revealed subtotally occluded right SFA. Subsequently an angiogram was performed and revealed in-stent occlusion of the right SFA. She underwent yesterday successful balloon angioplasty only of the right SFA with good angiographic results and reduction of stenosis from 99% to 0% with excellent flow. She was seen this morning. The procedure was performed from the left groin, which is soft and nontender and without any bruises. She is going to be discharged home on aspirin as well as oral anticoagulation with Eliquis. She will see Dr. Sweet in the office next week. She needs to have an arterial duplex study of the right lower extremity in 3 months from now. MMODL / IJN: [id number] /
== END 2020-02-04 11:20 | disposition home or self-care (01) ==
LOC: CATHCVL 09:13 → 3NCARDOBS 16:07 → CATHCVL 02-04 11:20
PROVIDERS: ATTEND Internal Medicine Interventional Cardiology
DX: T82.856A Stenosis of peripheral vascular stent, initial encounter (principal); I70.213 Atherosclerosis of native arteries of extremities with intermittent claudication, bilateral legs; I25.10 Atherosclerotic heart disease of native coronary artery without angina pectoris; I10 Essential (primary) hypertension; G47.33 Obstructive sleep apnea (adult) (pediatric); I25.5 Ischemic cardiomyopathy; E78.2 Mixed hyperlipidemia; I48.0 Paroxysmal atrial fibrillation; E66.3 Overweight; Z87.891 Personal history of nicotine dependence; Z95.820 Peripheral vascular angioplasty status with implants and grafts; Z79.899 Other long term (current) drug therapy; Z79.82 Long term (current) use of aspirin; Z79.01 Long term (current) use of anticoagulants; Z88.1 Allergy status to other antibiotic agents; Z88.6 Allergy status to analgesic agent; Z88.8 Allergy status to other drugs, medicaments and biological substances; Z68.33 Body mass index [BMI] 33.0-33.9, adult
CPT/HCPCS: 37224; 37252; 80048; 85025; C1894 ×2; C1769 ×5; C1725; C1753; C1760; C2623; J2250; J2001; J1170; Q9966

== ENCOUNTER → 2020-04-12 | Outpatient (CLI) | payer MEDICARE ==
--- NOTE | 2020-04-12 08:16 | CT ---
EXAMINATION TYPE: CT chest w con DATE OF EXAM: 04/12/2020 COMPARISON: 10/05/2019 HISTORY: Lung nodules CT DLP: 489.4 mGycm Automated exposure control for dose reduction was used. CONTRAST: CT scan of the chest is performed with IV Contrast, patient injected with 100 ml mL of Isovue 300. FINDINGS: LUNGS: The anterior segment right upper lobe there is a 4 mm nodule stable. Multiple 2 mm subpleural nodules are seen in the right upper lobe stable. Previously noted 5 mm nodule subpleural right upper lobe stable Posterior subpleural nodule measuring 6 mm in the prior exam is stable No pleural effusion or consolidative pneumonia. No pneumothorax. Areas of groundglass attenuation may been the basis of atelectasis correlate clinically. MEDIASTINUM: There are no greater than 1 cm hilar or mediastinal lymph nodes. No pericardial effusi on is seen. The heart is prominent in size. There is coronary artery calcification. Aorta of normal caliber. Atherosclerotic change is noted. OTHER: Multiple thyroid nodules are seen and there is diffuse low-attenuation throughout the liver s uggestive of hepatic steatosis. Nodule involving the left adrenal gland stable from prior CT scan yanna suring 1.4 cm and indeterminate. Hypertrophic and degenerative changes spine. IMPRESSION: 1. Stable multiple bilateral pulmonary nodules unchanged from prior exam. 2. Hepatic steatosis. 3. Indeterminate 1.4 cm left adrenal nodule stable from prior CT scan. 4. Cardiomegaly with coronary artery atherosclerotic disease. 5. Bilateral thyroid nodules.
== END | disposition home or self-care (01) ==
LOC: RADCTMAIN 07:30
PROVIDERS: ATTEND Family Medicine
DX: I25.10 Atherosclerotic heart disease of native coronary artery without angina pectoris (principal); R91.8 Other nonspecific abnormal finding of lung field; K76.0 Fatty (change of) liver, not elsewhere classified; E04.2 Nontoxic multinodular goiter
CPT/HCPCS: 71260; Q9967

== ENCOUNTER → 2020-04-12 | Outpatient (CLI) | payer MEDICARE ==
--- NOTE | 2020-04-12 10:02 | US ---
EXAMINATION TYPE: US abdomen complete DATE OF EXAM: 04/12/2020 COMPARISON: 09/11/2018 CLINICAL HISTORY: 64-year-old female R10.11 Right upper quadrant abd pain. TECHNIQUE: Multiple sonographic images of the right upper quadrant are obtained. FINDINGS: EXAM MEASUREMENTS: Liver Length: 19.6 cm Gallbladder Wall: 0.1 cm CBD: 1.1 cm Spleen: 9.4 cm Right Kidney: 10.5 x 4.1 x 4.7 cm Left Kidney: 10.6 x 4.7 x 4.4 cm Concrete Spreader notes: Morbidly obese patient, technically difficult, limited study. Pancreas: Obscured by bowel gas Liver: Enlarged. Severely attenuating limiting assessment. Probable focal fatty sparing adjacent to g allbladder Gallbladder: possible sludge, limited visualization unable to exclude mild wall thickening. There is no abnormal hydropic change. No shadowing calculi. Evidence for sonographic Stoner's sign: no CBD: dilated Spleen: wnl Right Kidney: superior pole obscured by bowel gas/obesity, wnl as seen Left Kidney: wnl Upper IVC: not visualized Abd Aorta: limited views, obscured by bowel gas/obesity. Visualized upper and mid abdominal aorta me asure up to 1.9 cm, within normal limits. IMPRESSION: 1. Hepatomegaly (19.6 cm) with severe hepatic steatosis. This secondarily limits assessment for focal liver lesions. 2. Bile duct is dilated at 1.1 cm. We note that it measured 1.4 cm, previously. Many chronic for the patient. Correlate with alkaline phosphatase and bilirubin levels to determine if there is a need for further imaging evaluation. 3. Limited visualization of the gallbladder. Unable to exclude some sludge and mild wall thickening. No hydropic change or sonographic Stoner sign. If concern for chronic cholecystitis, HIDA scan can be considered.
== END | disposition home or self-care (01) ==
LOC: RADUSWWP 06:54
PROVIDERS: ATTEND Family Medicine
DX: R16.0 Hepatomegaly, not elsewhere classified (principal); K76.0 Fatty (change of) liver, not elsewhere classified; K76.89 Other specified diseases of liver; K83.8 Other specified diseases of biliary tract; K82.8 Other specified diseases of gallbladder
CPT/HCPCS: 76700

== ENCOUNTER → 2020-04-29 | Outpatient (CLI) | payer MEDICARE ==
--- NOTE | 2020-05-02 10:08 | MM ---
Reason for exam: screening (asymptomatic). History: Patient is postmenopausal. Family history of breast cancer in mother at age 78. Physical Findings: A clinical breast exam by your physician is recommended on an annual basis and results should be correlated with mammographic findings. MG 3D Screening Mammo W/Cad Bilateral CC and MLO view(s) were taken. No prior studies available for comparison. There are scattered fibroglandular densities. Stable benign calcifications. There is no discrete abnormality. No significant changes when compared with prior studies. ASSESSMENT: Benign, BI-RAD 2 RECOMMENDATION: Routine screening mammogram of both breasts in 1 year.
== END | disposition home or self-care (01) ==
LOC: RADMAMWWP 14:53
PROVIDERS: ATTEND Family Medicine
DX: Z12.31 Encounter for screening mammogram for malignant neoplasm of breast (principal)
CPT/HCPCS: 77063; 77067

== ENCOUNTER → 2020-10-20 | Outpatient (CLI) | payer MEDICARE ==
--- NOTE | 2020-10-20 16:03 | NM ---
EXAMINATION TYPE: NM hepatobiliary w EF DATE OF EXAM: 10/20/2020 COMPARISON: Ultrasound 04/12/2020 HISTORY: R93.2 abnormal gallbladder US, abdominal pain right upper quadrant for 6 months TECHNIQUE: After the intravenous administration of 4.2 mCi Tc 99m Mebrofenin hepatobiliary scintigrap hy is performed. Immediate images post injection. FINDINGS: There is satisfactory initial accumulation of tracer by the liver. The gallbladder is visualized wit hin 14 minutes. The small bowel activity is noted on delayed images. At one hour 8 ounces of oral e nsure plus is given to mimic CCK and gallbladder ejection fraction is calculated at 96 %, above the u pper limit of the normal range. Therefore there is no scintigraphic evidence of cystic or common risa e duct obstruction to suggest acute cholecystitis. IMPRESSION: Findings may represent hyperdynamic gallbladder
--- NOTE | 2020-10-21 09:25 | US ---
EXAMINATION TYPE: US thyroid st tissue head/neck DATE OF EXAM: 10/20/2020 COMPARISON: US 2009, CT 2020 CLINICAL HISTORY: E04.1 THYROID NODULE. Current study is not compared to prior study from over 10 yea rs ago. GLAND SIZE: Right Lobe: 5.4 x 2.4 x 1.9 cm Overall Parenchyma: heterogenous Left Lobe: 5.2 x 1.9 x 1.0 cm Overall Parenchyma: heterogeneous Isthmus Thickness: 1.0 cm NODULES RIGHT: # of nodules measured on right: 3 largest of multiple 1. 0.9 X 0.8 x 0.7 cm, mid lateral, mixed cystic and solid, hyperechoic nodule, which is wider than tall, with ill-defined margins, without echogenic foci. 2. 1.2 X 1.2 x 1.0 cm, mid medial, mixed cystic and solid, hypoechoic nodule, which is wider than t all, with lobulated or irregular margins, with echogenic foci. 3. 1.6 X 1.6 x 1.5 cm, lower pole, mixed cystic and solid, hypoechoic nodule, which is wider than t all, with lobulated or irregular margins, with echogenic foci. LEFT: # of nodules measured on left: 3 largest of mulitple 1. 0.7 X 0.7 x 0.5 cm, upper pole, mixed cystic and solid, hypoechoic nodule, which is wider than t all, with smooth margins, without echogenic foci. 2. 0.6 X 0.6 x 0.4 cm, mid medial, spongiform, hypoechoic nodule, which is wider than tall, with s mooth margins, without echogenic foci. 3. 0.8 X 0.8 x 0.5 cm, lower pole, mixed cystic and solid, hyperechoic nodule, which is wider than tall, with ill-defined margins, without echogenic foci. ISTHMUS: # of nodules measured in the isthmus: 1 1. 1.0 X 1.3 x 0.7 cm solid or almost completely solid, hyperechoic nodule, which is wider than veronique l, with ill-defined margins, without echogenic foci. Bilateral neck scanned: Superior to right thyroid lymph node seen - 1.0 x 0.8 x 0.3 cm. Superior to left thyroid lymph node is seen = 1.3 x 1.4 x 0.6 cm. When compared with the prior examination, it is impossible for direct nodule to nodule comparison, ho wever, overall appearance is similar. IMPRESSION: Multinodular thyroid. Mild cortical thickening of multiple neck lymph nodes. Please correlate clinically. CT with contras t could be obtained, if clinically warranted. 2017 ACR TI-RADS LEVEL: TR-RADS 4 - Moderately Suspicious: Follow if > 1 cm, FNA if > 1.5 cm *Highest TI-RADS level nodule reported
== END | disposition home or self-care (01) ==
LOC: RADNMMAIN 12:26
PROVIDERS: ATTEND Family Medicine
DX: E04.2 Nontoxic multinodular goiter (principal); I89.8 Other specified noninfective disorders of lymphatic vessels and lymph nodes; R93.2 Abnormal findings on diagnostic imaging of liver and biliary tract
CPT/HCPCS: 76536; 78226; A9537

== ENCOUNTER 2020-11-30 07:54 | Day surgery (SDC) | payer MEDICARE ==
[2020-11-24 18:06] VITALS: BMI 26.7
[~2020-11-30 07:54] MED LIST changes: +ACETAMINOPHEN TAB 500 MG TAB PO PRN; -ALPRAZolam 0.25 MG TAB PO PRN; -ASPIRIN 325 MG TAB PO STA; +DEXAMETHASONE SOD PHOSPHATE 4 MG/ML 1 ML VIAL IV ONE; +HEPARIN SODIUM,PORCINE/PF 5,000 UNIT/0.5 ML SYRINGE SQ PRN; +LACTATED RINGERS 1,000 ML IV SCH; +LIDOCAINE 1% (10MG/ML) FOR IV START INTRADERMA PRN; +ONDANSETRON 4 MG/2 ML VIAL IVP ONE; +SCOPOLAMINE 1.5MG/72HR PATCH TRANSDERM ONE; -SODIUM CHLORIDE 0.9% 1,000 ML in EMPTY BAG 1 BAG IV ONE; -ZOLPIDEM 5 MG TAB PO PRN
[2020-11-30 08:24] VITALS: RESP 16
--- NOTE | 2020-11-30 09:01 | P.GSHP ---
History of Present Illness H&P Date: 11/30/20 Chief Complaint: Right upper quadrant pain This a 65-year-old female who presents today for laparoscopic cholecystectomy. Patient's had complaints of right upper quadrant pain. Her ultrasound shows history of thickened irregular wall gallbladder her HIDA scan is also abnormal with abnormal ejection fraction. 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, varicose veins, bleeding ulcer x2 Last Myocardial Infarction Date:: 10/16/15 History of Any Multi-Drug Resistant Organisms: None Reported Past Surgical History: Heart Catheterization With Stent, Hysterectomy, Tonsillectomy Additional Past Surgical History / Comment(s): Multiple D & C's.,ABDOMINAL AORTAGRAM, PERIPHERAL ANGIOGRAM, one cardiac stents, stents in risa legs(total 6) Past Anesthesia/Blood Transfusion Reactions: No Reported Reaction Date of Last Stent Placement:: 10/16/15 Smoking Status: Former smoker - Past Family History Father Family Medical History: Coronary Artery Disease (CAD), CVA/TIA, Deep Vein Thrombosis (DVT), Myocardial Infarction ([place]) Additional Family Medical History / Comment(s): at age 65. Mother Family Medical History: Cancer Additional Family Medical History / Comment(s): Breast cancer. Medications and Allergies Home Medications Medication Instructions Recorded Confirmed Type HYDROcodone/APAP 10-325MG [[place]ie 1 tab PO TID 10/16/15 11/24/20 History 10-325] Atorvastatin [Lipitor] 40 mg PO HS #30 tablet 05/16/16 11/24/20 Rx Metoprolol Tartrate [Lopressor] 25 mg PO BID #60 tablet 05/16/16 11/24/20 Rx Spironolactone 25 mg PO DAILY 01/23/18 11/24/20 History PARoxetine HCL [Paxil] 25 mg PO DAILY 04/22/18 11/24/20 History Apixaban [Eliquis] 5 mg PO BID #60 tab 04/26/18 11/24/20 Rx Aspirin 81 mg PO DAILY 09/04/18 11/24/20 History amLODIPine [Norvasc] 10 mg PO DAILY 09/04/18 11/24/20 History Cyclobenzaprine [Flexeril] 5 mg PO TID PRN 11/24/20 11/24/20 History Allergies Allergy/AdvReac Type Severity Reaction Status Date / Time erythromycin base Allergy Unknown Verified 11/30/20 08:15 gabapentin [From Neurontin] Allergy Anaphylaxis Verified 11/30/20 08:15 ibuprofen Allergy Unknown Verified 11/30/20 08:15 NSAIDS (Non-Steroidal Allergy Anaphylaxis Verified 11/30/20 08:15 Anti-Inflamma pregabalin [From Lyrica] Allergy Rash/Hives Verified 11/30/20 08:15 Surgical - Exam Vital Signs Temp Pulse Resp BP Pulse Ox 96.9 F L 74 16 139/85 93 L 11/30/20 08:23 11/30/20 08:23 11/30/20 08:23 11/30/20 08:23 11/30/20 08:23 - General well developed, well nourished, no distress - Eyes PERRL - ENT normal pinna - Neck no masses - Respiratory normal expansion - Cardiovascular Rhythm: regular - Abdomen Abdomen: soft, non tender Assessment and Plan Plan: Chronic cholecystitis. We'll perform laparoscopic cholecystectomy
[2020-11-30] MEDS ORDERED: SUCCINYLCHOLINE CHLORIDE 100 MG/5 ML SYR IV ONE (09:15)
[2020-11-30] MEDS ORDERED: PROPOFOL 10 MG/ML 20 ML VIAL IV ONE (09:15)
[2020-11-30] MEDS ORDERED: MIDAZOLAM 2 MG/2 ML VIAL ONE (09:15)
[2020-11-30] MEDS ORDERED: fentaNYL (PF) 50 MCG/ML 2 ML AMP ONE (09:15)
[2020-11-30] MEDS ORDERED: GLYCOPYRROLATE 0.2 MG/ML 2 ML VIAL ONE (09:15)
[2020-11-30 09:27] LABS: ALT 29 U/L (4-34); AST 27 U/L (14-36); African American GFR (CKD) >90 (>60 ml/min/1.73 sqM); Albumin 4.1 g/dL (3.5-5.0); Alkaline Phosphatase 106 U/L (38-126); Anion Gap 12 mmol/L; Blood Urea Nitrogen 20 mg/dL (7-17); Calcium 9.4 mg/dL (8.4-10.2); Carbon Dioxide 21 mmol/L (22-30); Chloride 104 mmol/L (98-107); Glucose 302 mg/dL (74-99); Non-African American GFR(CKD) >90 (>60 ml/min/1.73 sqM); Potassium 4.5 mmol/L (3.5-5.1); Sodium 137 mmol/L (137-145); Total Bilirubin 0.4 mg/dL (0.2-1.3); Total Protein 6.8 g/dL (6.3-8.2)
[2020-11-30] MEDS ORDERED: BUPIVACAINE (PF) 0.5% 30 ML VIAL SQ ONE (09:39)
[2020-11-30 10:01] VITALS: TEMP 97.1
[2020-11-30] MEDS: HYDROmorphone 0.5 MG/0.5 ML SYRINGE IVP PRN ×2 (10:08→10:24)
--- NOTE | 2020-11-30 10:17 | P.OP ---
Date of Procedure: 11/30/20 Preoperative Diagnosis: Cholecystitis Postoperative Diagnosis: Cholecystitis Procedure(s) Performed: Laparoscopic cholecystectomy Anesthesia: KHUSHBU Surgeon: Agusto Guidry Pathology: other (Gallbladder) Condition: stable Disposition: PACU Description of Procedure: The patient was placed on the operating table. The patient received a general endotracheal tube anesthesia. The patients abdomen was prepped and draped in the usual sterile fashion. Through an infraumbilical stab incision, the fascia of the anterior abdominal wall was grasped with a pair of Kochers and then the Veress needle was placed in the peritoneal cavity. Position of the Veress needle was confirmed with positive drop test. The abdomen was then insufflated. After adequate insufflation, the 10 mm trocar was placed in the peritoneal cavity. Following this the laparoscope was placed in the peritoneal cavity. The patient was placed in the head-up, right side up position and then a 5 mm trocar was placed in the right lateral and right subcostal position under direct visualization. A 8 mm trocar was placed in the epigastric position. The gallbladder was grasped in the fundus and infundibulum. Traction on the gallbladder was placed in the lateral and the cephalad positions. The triangle of Calot was visualized.. The cystic duct was bluntly dissected until the union of the cystic duct and common bile duct was seen. A critical view of safety was achieved. The cystic duct was then divided and sealed with the Harmonic scissors. A PDS Endoloop was then placed throughout the cystic duct stump. The cystic artery divided and sealed with the Harmonic scissors. The gallbladder was then removed from the liver bed using Harmonic scissors. The gallbladder was then extracted through the epigastric port site. Operative field was checked for any bleeding spots and Harmonic scissors was used to coagulate the liver bed. The abdomen was irrigated. The trocars were removed. The skin was closed using interrupted 3-0 Vicryl suture. Dermabond dressing were applied. The patient tolerated the procedure well.
[2020-11-30 12:48] VITALS: BP 129/80; PULSE 65
== END 2020-11-30 12:55 | disposition home or self-care (01) ==
LOC: OR 07:54
PROVIDERS: ATTEND Surgery
DX: K81.1 Chronic cholecystitis (principal); E78.5 Hyperlipidemia, unspecified; I10 Essential (primary) hypertension; I25.10 Atherosclerotic heart disease of native coronary artery without angina pectoris; I25.2 Old myocardial infarction; K21.9 Gastro-esophageal reflux disease without esophagitis; Z90.710 Acquired absence of both cervix and uterus; Z79.01 Long term (current) use of anticoagulants; Z79.82 Long term (current) use of aspirin; Z87.891 Personal history of nicotine dependence; Z95.5 Presence of coronary angioplasty implant and graft; Z95.820 Peripheral vascular angioplasty status with implants and grafts; Z80.3 Family history of malignant neoplasm of breast; Z82.49 Family history of ischemic heart disease and other diseases of the circulatory system; Z88.8 Allergy status to other drugs, medicaments and biological substances
CPT/HCPCS: 47562; 88304; 80053; J2250; J1100; J0690; J2405; J3010; J0330; J2704; J1170; J1644

== ENCOUNTER → 2021-05-12 | Outpatient (CLI) | payer MEDICARE ==
[2021-05-12 14:33] LABS: ALT 31 U/L (8-44); AST 19 U/L (13-35); African American GFR (CKD) 95.9 (60.0-200.0); Albumin/Globulin Ratio 1.34 (1.60-3.17); Alkaline Phosphatase 106 U/L (41-126); BUN/Creat Ratio 20.08 Ratio (12.00-20.00); Blood Urea Nitrogen 15.2 mg/dL (9.0-27.0); Calcium 9.5 mg/dL (8.7-10.3); Carbon Dioxide 23.1 mmol/L (20.0-27.5); Chloride 102 mmol/L (96-109); Chol/HDL Ratio 4.05 Ratio; Glucose 300 mg/dL (70-110); LDL Cholesterol,Calculated 65.4 mg/dL (0.0-131.0); Non-African American GFR(CKD) 82.7 (60.0-200.0); Potassium 4.5 mmol/L (3.5-5.5); Sodium 138 mmol/L (135-145)
== END | disposition home or self-care (01) ==
LOC: LABWHC1 09:36
PROVIDERS: ATTEND Internal Medicine Interventional Cardiology
DX: E78.2 Mixed hyperlipidemia (principal)
CPT/HCPCS: 36415; 80053; 80061

== ENCOUNTER → 2022-01-31 | Outpatient (CLI) | payer MEDICARE ==
[2022-01-31 19:00] LABS: LDL Cholesterol,Calculated 67.8 mg/dL (0.0-131.0)
[2022-01-31 19:12] LABS: ALT 30 U/L (8-44); AST 38 U/L (13-35); African American GFR (CKD) 79.6 (60.0-200.0); Albumin 3.9 g/dL (3.8-4.9); Albumin/Globulin Ratio 1.19 (1.60-3.17); Alkaline Phosphatase 113 U/L (41-126); BUN/Creat Ratio 14.69 Ratio (12.00-20.00); Blood Urea Nitrogen 12.9 mg/dL (9.0-27.0); Carbon Dioxide 19.4 mmol/L (20.0-27.5); Chloride 101 mmol/L (96-109); Globulin 3.2 g/dL (1.6-3.3); Glucose 362 mg/dL (70-110); Non-African American GFR(CKD) 68.7 (60.0-200.0); Sodium 133 mmol/L (135-145); Total Protein 7.1 g/dL (6.2-8.2)
== END | disposition home or self-care (01) ==
LOC: LABWHC1 11:07
PROVIDERS: ATTEND Nurse Practitioner Adult Health
DX: I10 Essential (primary) hypertension (principal); E78.2 Mixed hyperlipidemia
CPT/HCPCS: 36415; 80053; 80061

== ENCOUNTER → 2023-08-21 | Outpatient (CLI) | payer MEDICARE ==
[2023-08-21 15:08] LABS: ALT 28 U/L (8-44); AST 19 U/L (13-35); Albumin 4.4 g/dL (3.8-4.9); Albumin/Globulin Ratio 1.69 Ratio (1.60-3.17); Alkaline Phosphatase 92 U/L (41-126); BUN/Creat Ratio 19.33 Ratio (12.00-20.00); Blood Urea Nitrogen 17.4 mg/dL (9.0-27.0); Calcium 9.3 mg/dL (8.7-10.3); Carbon Dioxide 24.6 mmol/L (21.6-31.8); Chloride 105 mmol/L (96-109); Chol/HDL Ratio 4.04 Ratio; Globulin 2.6 g/dL (1.6-3.3); Glucose 216 mg/dL (70-110); LDL Cholesterol,Calculated 66.1 mg/dL (0.0-131.0); Sodium 140 mmol/L (135-145); Total Bilirubin 0.4 mg/dL (0.3-1.2)
== END | disposition home or self-care (01) ==
LOC: LABWHC1 08:14
PROVIDERS: ATTEND Family Medicine
DX: E78.2 Mixed hyperlipidemia (principal)
CPT/HCPCS: 36415; 80053; 80061

== ENCOUNTER → 2023-12-12 | Outpatient (CLI) | payer MEDICARE ==
--- NOTE | 2023-12-12 13:53 | US ---
EXAMINATION TYPE: US thyroid st tissue head/neck DATE OF EXAM: 12/12/2023 COMPARISON: NONE CLINICAL INDICATION: Female, 68 years old with history of E04.2 MULTINODULAR GOITER; Goiter GLAND SIZE: Right Lobe: 5.4 x 1.7 x 2.2 cm Overall Parenchyma: heterogeneous Left Lobe: 5.2 x 1.2 x 1.9 cm Overall Parenchyma: heterogeneous Isthmus Thickness: 0.5 cm NODULES RIGHT: # of nodules measured on right: 1 1. 1.3 X 1.2 x 1.3 cm, lower , mixed cystic and solid, hypoechoic nodule, which is wider than tall, with smooth margins, without echogenic foci. TR 3 Prior size: 1.5 x 1.5 x 1.5 cm LEFT: # of nodules measured on left: 1 1. 1.1 X 1.0 x 1.2 cm, lower , mixed cystic and solid, hypoechoic nodule, which is wider than tall, with smooth margins, without echogenic foci.TR 3 ISTHMUS: # of nodules measured in the isthmus: 1 1. 1.1 X 0.8 x 1.1 cm solid or almost completely solid, isoechoic nodule, which is wider than tall, with ill-defined margins, without echogenic foci. TR 3 Prior size: 1.3 x 0.7 x 1.3 cm Bilateral neck scanned, no evidence of lymphadenopathy. Multiple thyroid nodules redemonstrated, impossible to correlate with prior exams. Largest nodule m easured bilaterally IMPRESSION: Thyroid nodules are stable or reduced in size relative to the previous exam. There is a single new le ft thyroid nodule. Continued surveillance recommended according to ACR guidelines. 2017 ACR TI-RADS LEVEL: TR-RADS 3 - Mildly Suspicious: Follow if > 1.5 cm, FNA if > 2.5 cm *Highest TI-RADS level nodule reported
== END | disposition home or self-care (01) ==
LOC: RADUSWWP 13:06
PROVIDERS: ATTEND Family Medicine
DX: E04.2 Nontoxic multinodular goiter (principal)
CPT/HCPCS: 76536

== ENCOUNTER → 2024-09-23 | Outpatient (CLI) | payer MEDICARE ==
[2024-09-23 15:13] LABS: HCT 51.1 % (37.2-46.3); HGB 15.8 g/dL (12.0-15.0); MCHC 30.9 g/dL (32.0-37.0); MCV 93.9 FL (80.0-97.0); Mean Platelet Volume 10.8 FL (9.5-12.2); NRBC Per 100 WBC 0 X 10*3/uL (0.00-0.01); Platelet Count 218 X 10*3/uL (140-440); RBC 5.44 X 10*6/uL (4.10-5.20); RDW 13.2 % (11.5-14.5); WBC 7.45 X 10*3/uL (4.50-10.00)
[2024-09-23 15:49] LABS: ALT 55 U/L (8-44); AST 51 U/L (13-35); Albumin 4.1 g/dL (3.8-4.9); Albumin/Globulin Ratio 1.28 Ratio (1.60-3.17); Alkaline Phosphatase 95 U/L (41-126); BUN/Creat Ratio 21.29 Ratio (12.00-20.00); Blood Urea Nitrogen 14.9 mg/dL (9.0-27.0); Calcium 9.4 mg/dL (8.7-10.3); Carbon Dioxide 24.8 mmol/L (21.6-31.8); Chloride 101 mmol/L (96-109); Chol/HDL Ratio 5.42 Ratio; Globulin 3.2 g/dL (1.6-3.3); Glucose 212 mg/dL (70-110); LDL Cholesterol,Calculated 109.5 mg/dL (0.0-131.0); Sodium 136 mmol/L (135-145); T4, Free (Free Thyroxine) 0.98 ng/dL (0.80-1.80); Total Bilirubin 0.7 mg/dL (0.3-1.2); Total Protein 7.3 g/dL (6.2-8.2)
== END | disposition home or self-care (01) ==
LOC: LABWHC1 08:03
PROVIDERS: ATTEND Internal Medicine Interventional Cardiology
DX: I10 Essential (primary) hypertension (principal); E78.2 Mixed hyperlipidemia; E11.65 Type 2 diabetes mellitus with hyperglycemia; E04.2 Nontoxic multinodular goiter; E55.9 Vitamin D deficiency, unspecified; E78.5 Hyperlipidemia, unspecified
CPT/HCPCS: 36415; 80053; 80061; 82043; 82306; 82570; 83036; 84439; 84443; 85027